=== PATIENT | male | born 1945 | race Caucasian/White ===

== ENCOUNTER → 2020-03-21 09:37 | Outpatient (BNVA) | payer MEDICARE, SELFPAY | PROVIDERS: PCP Nurse Practitioner Family; Visit Provider Internal Medicine Cardiovascular Disease | DX: I51.3 Intracardiac thrombosis, not elsewhere classified (principal); Z51.81 Encounter for therapeutic drug level monitoring; Z79.01 Long term (current) use of anticoagulants | CPT/HCPCS: 85610 ==

== ENCOUNTER → 2020-05-03 09:19 | Outpatient (BNVA) | payer MEDICARE, OTHER, SELFPAY | PROVIDERS: PCP Nurse Practitioner Family; Referring Provider Nurse Practitioner Family; Visit Provider Internal Medicine Cardiovascular Disease | DX: I25.10 Atherosclerotic heart disease of native coronary artery without angina pectoris (principal); I25.5 Ischemic cardiomyopathy; I51.3 Intracardiac thrombosis, not elsewhere classified; Z79.01 Long term (current) use of anticoagulants; Z79.899 Other long term (current) drug therapy | CPT/HCPCS: 93005; 99212 ==

== ENCOUNTER → 2020-05-22 09:47 | Outpatient (BNVA) | payer MEDICARE, OTHER, SELFPAY | PROVIDERS: PCP Nurse Practitioner Family; Visit Provider Internal Medicine | DX: Z01.811 Encounter for preprocedural respiratory examination (principal); J44.9 Chronic obstructive pulmonary disease, unspecified | CPT/HCPCS: 85610; 99202; 99211 ==

== ENCOUNTER 2020-06-05 12:42 | Inpatient (IN) | payer MEDICARE, OTHER, SELFPAY ==
[2020-05-22 10:46] VITALS: BP 173/80; PULSE 50; RESP 16; O2SAT 99; BMI 24.9
--- NOTE | 2020-05-25 14:28 | HO.ANESPROP2 ---
Documented by User: Isabelle Rangel 06/02/20 11:36 HPI - Anesthesia Eval Consult details Narrative: 74yo M for ICD Insertion Seen by Dr Kerns in PAT Pulm cleared at mod risk, optimized. No intraop steroids required. [facility] Past Medical History Medical History CAD (coronary artery disease) Carotid artery disease COPD (chronic obstructive pulmonary disease) HTN (hypertension) Hyperlipidemia Ischemic cardiomyopathy LV (left ventricular) mural thrombus Old CT (myocardial infarction) PVD (peripheral vascular disease) Family History Family History Father No problems noted. Mother Diabetes Surgical History Surgical History Hx of colonoscopy Hx of hemorrhoidectomy Hx of kyphoplasty Hx of vascular surgery Social History Social History Are you a primary regular senior care provider to a significant other at home: No Do you presently have visiting nurse or other home services: No Alcohol intake: current Alcohol intake frequency: 3 or more drinks per day Alcohol type: beer Smoking Status: Current every day smoker Tobacco Type: Cigarette Packs Per Day: 1 Cigarettes Per Day: 20.0 Years Smoked: 52 Smoked in Last 30 Days: Yes Patient Interested in Nicotine Replacement: No Patient Given Instructions on How to Stop Smoking: Yes Date Education Initiated: 05/22/20 Second Hand Smoke Exposure: No Use of substances other than those prescribed or required for medical reasons: No Have you been hit, kicked, punched, or otherwise hurt by someone within the past year? If so, by whom?: No Spiritual Healthcare Practices: none Holiness Healthcare Practices: none Cultural Healthcare Practices: none Advance Directives: No Advance Directives Information Provided: No Advance Directives on File: No Recently lost weight without trying: No Meds Allergies Allergy/AdvReac Type Severity Reaction Status Date / Time No Known Allergies Allergy Verified 05/22/20 11:08 Home Medications Medication Instructions Recorded Confirmed Type albuterol sulfate 90 mcg/actuation 2 puff PO Q6H PRN 05/03/20 05/22/20 History aerosol inhaler atorvastatin 80 mg tablet 80 mg PO DAILY 05/03/20 05/22/20 History calcium carbonate 600 mg calcium 600 mg PO BID 05/03/20 05/22/20 History (1,500 mg) tablet ergocalciferol (vitamin D2) 50 mcg 100 mcg PO cap 05/03/20 05/03/20 History (2,000 unit) capsule metoprolol succinate 50 mg 50 mg PO DAILY 05/03/20 05/22/20 History tablet,extended release 24 hr tiotropium bromide 2.5 1 inh INHALATION BID 05/03/20 05/22/20 History mcg/actuation mist for inhalation Exam Exam Date and Time: May 25, 2020 1428 Height,Weight and Vital Signs: Height 5 ft 4 in Weight 65.771 kg Last Vital Signs Pulse 50 05/22/20 10:46 Resp 16 05/22/20 10:46 BP 173/80 H 05/22/20 10:46 Pulse Ox 99 05/22/20 10:46 Assessment and Plan Assessment Anesthesia Assessment: Chart Reviewed Documented by User: Rikki Landry MD 06/05/20 12:33 [facility] Past Medical History Medical History CAD (coronary artery disease) Carotid artery disease COPD (chronic obstructive pulmonary disease) HTN (hypertension) Hyperlipidemia Ischemic cardiomyopathy LV (left ventricular) mural thrombus Old CT (myocardial infarction) PVD (peripheral vascular disease) Family History Family History Father No problems noted. Mother Diabetes Surgical History Surgical History Hx of colonoscopy Hx of hemorrhoidectomy Hx of kyphoplasty Hx of vascular surgery Social History Social History Are you a primary regular senior care provider to a significant other at home: No Do you presently have visiting nurse or other home services: No Alcohol intake: current Alcohol intake frequency: 3 or more drinks per day Alcohol type: beer Smoking Status: Current every day smoker Tobacco Type: Cigarette Packs Per Day: 1 Cigarettes Per Day: 20.0 Years Smoked: 52 Smoked in Last 30 Days: Yes Patient Interested in Nicotine Replacement: No Patient Given Instructions on How to Stop Smoking: Yes Date Education Initiated: 05/22/20 Second Hand Smoke Exposure: No Use of substances other than those prescribed or required for medical reasons: No Have you been hit, kicked, punched, or otherwise hurt by someone within the past year? If so, by whom?: No Spiritual Healthcare Practices: none Holiness Healthcare Practices: none Cultural Healthcare Practices: none Advance Directives: No Advance Directives Information Provided: No Advance Directives on File: No Recently lost weight without trying: No Meds Allergies Allergy/AdvReac Type Severity Reaction Status Date / Time No Known Allergies Allergy Verified 05/22/20 11:08 Home Medications Medication Instructions Recorded Confirmed Type albuterol sulfate 90 mcg/actuation 2 puff PO Q6H PRN 05/03/20 05/22/20 History aerosol inhaler atorvastatin 80 mg tablet 80 mg PO DAILY 05/03/20 05/22/20 History calcium carbonate 600 mg calcium 600 mg PO BID 05/03/20 05/22/20 History (1,500 mg) tablet ergocalciferol (vitamin D2) 50 mcg 100 mcg PO cap 05/03/20 05/03/20 History (2,000 unit) capsule metoprolol succinate 50 mg 50 mg PO DAILY 05/03/20 05/22/20 History tablet,extended release 24 hr tiotropium bromide 2.5 1 inh INHALATION BID 05/03/20 05/22/20 History mcg/actuation mist for inhalation Exam Airway Mallampati Class: II TM Dist: >3cm Neck ROM: Full Loose/Missing/Broken Teeth: Yes (Poor dental health, multiple missing and broken teeth) Assessment and Plan Assessment Anesthesia Assessment: Anesthesia Plan Discussed Final Anesthetic Review NPO: Yes ASA Class: IV Final Preanesthetic Review: No Changes in Pt Med Stat, Meds/Allgs Chart Reviewed, Consent Obtained/Reviewed and Anes Risks/Benef Reviewed Patient Risk: High Procedure Risk: Intermediate Anesthetic Plan Anesthetic Plan: MAC: Disposition: Standard PACU
[2020-06-05] VITALS (14 sets, daily range): BP systolic 96–155; BP diastolic 51–79; PULSE 58–92; RESP 12–19; TEMP 36–37.2; O2SAT 96–100
--- NOTE | 2020-06-05 | XR_ITS ---
EXAMINATION: XR CHEST CLINICAL INFORMATION: Rule out pneumothorax status post ICD COMPARISON: December 21, 2019 and chest x-ray of June 09, 2017 TECHNIQUE: AP portable view of the chest was obtained. FINDINGS: There are significant changes of emphysema present with diminished vascularity within the upper lobes bilaterally. No confluent parenchymal disease is appreciated. Heart normal size. No evidence of pulmonary edema. Patient status post kyphoplasty midthoracic spine. ICD in place from a left subclavian vein approach. No pneumothorax identified. No significant pleural effusion. There appears to be chronic right base pleural-parenchymal disease. Or left rib fracture evident. XR/XR chest 1V IMPRESSION: COPD without pneumothorax.
[2020-06-05] MEDS: Lactated Ringers 1,000 ML 20 ML IVCONT (12:11)
[2020-06-05 12:12] LABS: Hematocrit 44.1 % (42-52); Hemoglobin 14.8 g/dl (14.0-18.0); Mean Corpuscular HGB Conc 33.6 g/dl (31.0-36.0); Mean Corpuscular Hemoglobin 30.9 pg (27.0-33.0); Mean Corpuscular Volume 92.1 fL (80-98); Mean Platelet Volume 8.7 fL (9.4-12.4); Platelet Count 182 X10*3/uL (160-400); Red Blood Count 4.79 X10*6/uL (4.60-5.80); Red Cell Distribution Width 13.9 % (11.0-16.0); White Blood Count 7.6 X10*3/uL (4.8-10.8)
[2020-06-05 12:18] LABS: INTERNATIONAL NORM RATIO 1.1 (0.9-1.1); Prothrombin Time 13.4 SEC (10.8-13.0)
[2020-06-05 12:37] LABS: Blood Urea Nitrogen 9 mg/dL (9-16); Calcium 9.1 mg/dL (8.4-10.2); Creatinine Clr Calc Pharmacy 71.5; Estimated Glomerular Filt Rate > 60; Glucose Fasting 88 mg/dL (60-99)
[2020-06-05 12:44] LABS: COVID-19 Test Negative (Negative)
[2020-06-05 12:51] LABS: Anion Gap 14 (12-20); Carbon Dioxide 26 mmol/L (22-29); Chloride 90 mmol/L (96-108); Potassium 4.9 mmol/l (3.3-5.1); Sodium 125 mmol/L (135-145)
--- NOTE | 2020-06-05 13:06 | FL_ITS ---
EXAMINATION: CHEST X-RAY CLINICAL INFORMATION: Post ICD COMPARISON: Previous chest x-ray from earlier the same day TECHNIQUE: PA and lateral chest FINDINGS: The cardiac and mediastinal contours are stable. There is a left subclavian ICD with tip projecting over the ventricular apex. Hilar and mediastinal contours are unremarkable. There is subsegmental atelectasis at the right lung base. There is no pleural effusion or pneumothorax. There are T7 and T8 vertebral body compression fractures and post vertebroplasty change at T8 that appears unchanged. FL/FL guidance in OR IMPRESSION: Satisfactory position of left subclavian ICD. No pneumothorax. EXAMINATION: RF fluoroscopy guidance in OR CLINICAL INFORMATION: Left ICD displacement COMPARISON: Previous chest x-ray from earlier the same day TECHNIQUE: Fluoroscopic guidance was provided for ICD placement. Fluoroscopy time 11.1 minutes. Total dose 50 mgy. DAP 13.4 baca per centimeter squared. 1 saved fluoroscopic image. FINDINGS: There is a ICD with tip projecting over the ventricular apex. IMPRESSION: Fluoroscopic guidance for ICD placement.
--- NOTE | 2020-06-05 15:18 | P.BOP_ITS ---
Brief Operative Note Date of Service: 06/05/20 Pre-op diagnosis: CAD and ischemic cardiomyopathy with congestive heart failure with EF 30-35% and class II HF Procedure: Single chamber ICD implantation with axillary access. Plan CXR portable today, PA/lateral tomorrow Ancef x 2 doses Do not use left arm for today Ok to restart coumadin, no heparin subq or lovenox DC Instructions below can be placed below can be used on discharge Ronnie Rick Electrophysiology Attending [place] [facility] Dr. Ronnie Rick Pacemaker/ICD Instructions Site Care: Leave dressing on for 5 days. Do not shower or get the area wet for 5 days. Once you remove the dressing, there will be steri-strips in place. Do not peel off, they will fall off. Hand washing is a must when caring for your incision to prevent infections. Avoid touching your incision or using lotions, creams, or ointments until it is healed (2-4 weeks). Activity: If you received a new battery only, do not lift, push, pull, or carry objects that weigh more than 10 pounds until incision is healed (2 weeks) and avoid clothing that rubs against your incision If you received new leads: Limit the movement of your arm on the same side as the pacemaker but do not stop moving it. Avoid stretching that arm over your head or shoulder-level or lift or carry anything heavier than 5 pounds with the left arm for 6 weeks Avoid golfing, swimming, tennis, bowling, shoveling snow or mowing the lawn for [address] for 2 weeks Follow-up instructions: If you do not already have a scheduled follow-up appointment, please call [phone] for the [place] office or [phone] for the [place] office Please keep the identification card for the device with you, it will be useful when you go through security during flights. Please plug in your home monitor and leave it at your bedside. Call device company if you need assistance plugging in the monitor. Please tell all your healthcare providers you have a pacemaker, especially before procedures or before a MRI. Call your doctor if you have any redness, swelling, pus from incision site, fever of 101 degrees. If you have any bleeding from the incision site, lie down and put pressure on the incision site for 30 minutes. If this does not resolve, please get transportation to the closest hospital but do not drive yourself. Implants: [employer]tronic single chamber ICD Surgeon: Ronnie Rick MD Anesthesia: MAC Estimated blood loss (mL): 30 Pathology: none sent Condition: stable Disposition: floor
--- NOTE | 2020-06-05 16:02 | P.OP_ITS ---
Operative Note Operative Note Date of Service: 06/05/20 Narrative: Procedure: Single chamber ICD Indication: ischemic cardiomyopathy with systolic heart failure and EF 30-35%, class II HF Procedure The risks, benefits, complications, alternatives and expected outcomes were discussed with the patient. Patient was prepped and draped in the usual sterile fashion. After the antibiotic was infused, lidocaine was infiltrated medial to the deltopectoral groove. An incision was made. The incision was extended to the prepectoral fascia using blunt dissection. The lead was positioned in the RV. Appropriate sensing and thresholds were obtained. No diaphragmatic pacing occurred at high outputs. The lead was sutured to the muscle using 3 ethibond ties. Lead measurements were rechecked. A left prepectoral pocket was fashioned. The lead was attached to the generator. The system was placed in the pocket. The ICD was checked under fluoroscopy with adrquate slack noted noted. The pin of the lead was beyond the set screws. Hemostasis was verified. The pocket was closed with 3 layers. Steristrips and tegaderm were applied [employer] Device: ICD Visia AF MRI VR [id number] serial [id number] RV lead: 6935 Sprint Quattro serial [id number] Pacing impedance 494 ohms HV impedance 76 ohms Threshold 0.5 V at 0.4 ms R waves 14.6 Programmed VVI 40 BPM VF therapy >200 BPM ATP during charging, [id number] Ronnie Rick Electrophysiology/Cardiology Attending
[2020-06-05] MEDS: Albuterol Sulfate 90 MCG 8 GM INHALER 2 PUFF INHALE (18:45)
--- NOTE | 2020-06-05 18:57 | PM.EVENT ---
Event Note Date of Service: 06/05/20 Event Note: Patient was admitted for observation post AICD. Patient seen seen and examined has increasing area of hematoma in the left upper pectoral area, Patient denies any chest pain or breathing problem at present Denies any weakness numbness. Physical exam: Cvs: rrr, [id number] , no murmur res: clear to auscultation ,no rhonchii or wheezing abd: no rebound or guarding ,nt, bs present. ext pulses present , no cyanosis neuro: axo3 , nonfocal. skin: left upper pectoral area heamtoma Assessment and plan coordinated in H&P Patient is status post pacemaker Discussed with Cardiology due to increase hematoma hold off on warfarin for today Pressure dressing and tight bandage H&H and type and cross moniter vitals If any new symptoms chest pain or shortness of breath please call Dr. garcia : [phone]
[2020-06-05 19:34] LABS: Hematocrit 37.7 % (42-52); Hemoglobin 12.8 g/dl (14.0-18.0)
[2020-06-05 22:06] LABS: Hematocrit 35.9 % (42-52); Hemoglobin 12.2 g/dl (14.0-18.0)
[2020-06-05] MEDS: 0.9 % Sodium Chloride Flush 3 ML SYRINGE IVFLUSH (23:52)
[2020-06-05] MEDS: ceFAZolin Sodium/Dextrose,Iso 2 GM/50 ML PIGGYBACK IV (23:52)
[2020-06-06] VITALS (7 sets, daily range): BP systolic 117–140; BP diastolic 58–74; PULSE 67–86; RESP 18; TEMP 36.2–37.3; O2SAT 93–100
[2020-06-06 00:23] LABS: Osmolality Urine 349 mosm/kg (373-1093)
--- NOTE | 2020-06-06 00:45 | PC.NURSE ---
Pt arrived to unit from PACU ~1700. Pt s/p AICD pacemaker placement. Upon arrival, pt assessed, pt A/O x4, denies SOB, CP, palpitations, and dizziness. Pt with dry nonproductive cough, Inhaler given by RT with good effect. Pt SR 60's, no pacemakers spikes noted, sBP 130s, RR 18, O2 100 % 1.5L NC. Left chest incision intact with scant staining/mild swelling. Ice pack placed. Left arm kept in sling. + CMS bilaterally. Pt educated on the importance of keeping left arm in sling. ~18:00; Increased swelling/bruising noted to left pectoral region. Geetha Hutson NP notified. Dr. David ANDINO to the bedside to assess the patient. Warfarin held due to hematoma. Dr. Cooper notified/update given. to the bedside to place pressure dressing. ~19:10 Pressure placed by division leader x10 mins, followed by a pressure dressing/tight bandage. ~19:20-20:20 Sand bag placed x1 hr. Pt tolerated procedure well. H/H 12.8/37.7. BP 100's. Will continue to monitor.
--- NOTE | 2020-06-06 06:00 | XR_ITS ---
EXAMINATION: CHEST X-RAY CLINICAL INFORMATION: Post ICD COMPARISON: Previous chest x-ray from earlier the same day TECHNIQUE: PA and lateral chest FINDINGS: The cardiac and mediastinal contours are stable. There is a left subclavian ICD with tip projecting over the ventricular apex. Hilar and mediastinal contours are unremarkable. There is subsegmental atelectasis at the right lung base. There is no pleural effusion or pneumothorax. There are T7 and T8 vertebral body compression fractures and post vertebroplasty change at T8 that appears unchanged. XR/XR chest 2V IMPRESSION: Satisfactory position of left subclavian ICD. No pneumothorax. EXAMINATION: RF fluoroscopy guidance in OR CLINICAL INFORMATION: Left ICD displacement COMPARISON: Previous chest x-ray from earlier the same day TECHNIQUE: Fluoroscopic guidance was provided for ICD placement. Fluoroscopy time 11.1 minutes. Total dose 50 mgy. DAP 13.4 baca per centimeter squared. 1 saved fluoroscopic image. FINDINGS: There is a ICD with tip projecting over the ventricular apex. IMPRESSION: Fluoroscopic guidance for ICD placement.
[2020-06-06] MEDS: ceFAZolin Sodium/Dextrose,Iso 2 GM/50 ML PIGGYBACK IV ×3 (06:39→20:44)
[2020-06-06] MEDS: Acetaminophen 325 MG TABLET 650 MG PO (06:44)
[2020-06-06 07:12] LABS: Hematocrit 35.8 % (42-52); Mean Corpuscular HGB Conc 33.5 g/dl (31.0-36.0); Mean Corpuscular Hemoglobin 30.7 pg (27.0-33.0); Mean Corpuscular Volume 91.6 fL (80-98); Mean Platelet Volume 9.2 fL (9.4-12.4); Platelet Count 144 X10*3/uL (160-400); Red Blood Count 3.91 X10*6/uL (4.60-5.80); Red Cell Distribution Width 13.7 % (11.0-16.0); White Blood Count 5.6 X10*3/uL (4.8-10.8)
[2020-06-06 07:27] LABS: INTERNATIONAL NORM RATIO 1.1 (0.9-1.1); Prothrombin Time 13.2 SEC (10.8-13.0)
--- NOTE | 2020-06-06 07:54 | P.PNIM_ITS ---
Subjective Subjective Date of Service: 06/08/20 Interval History: Patient developed possible hematoma after AICD placement yesterday. Also has hyponatremia Review of Systems Patient still has lot of swelling and hematoma mildly increased, otherwise patient denies any chest pain or abdominal pain or fever or chills or new symptoms Physical Exam Vital Signs: Vital Signs: Last Vital Signs Temp 98 F 06/06/20 03:32 Pulse 67 06/06/20 03:32 Resp 18 06/06/20 03:32 BP 140/67 H 06/06/20 03:32 Pulse Ox 100 06/06/20 03:32 Body Mass Index 24.9 Physical exam: Constitutional: Not in distress Cvs: rrr, [id number] , no murmur res: clear to auscultation ,no rhonchii or wheezing abd: no rebound or guarding ,nt, bs present. ext pulses present , no cyanosis skin: left upper pectoral area has swelling , status post compression bandage neuro: axo3 , nonfocal. Objective Data Current Medications Generic Name Dose Route Start Last Admin Trade Name Freq PRN Reason Stop Dose Admin Acetaminophen 650 mg 06/05/20 16:53 06/06/20 06:44 Acetaminophen 325 Mg Tablet PO 650 mg Q6H PRN Administration Pain, Mild (Pain Scale 1-3) Albuterol Sulfate 2 puff 06/05/20 15:31 06/05/20 18:45 Albuterol Sulfate 90 Mcg 8 Gm Inhaler INHALE 2 puff Q6H PRN Administration Shortness Of Breath Or Wheezing Atorvastatin Calcium 80 mg 06/06/20 09:00 Atorvastatin Calcium 80 Mg Tablet PO DAILY CHERELLE Calcium Carbonate 500 mg 06/05/20 21:00 06/05/20 23:51 Calcium Carbonate 500 Mg Tablet PO 500 mg BID CHERELLE Administration Lactated Ringer's 1,000 mls @ 20 mls/hr 06/05/20 11:45 06/05/20 12:11 Lr IVCONT 20 mls/hr .Q24H CHERELLE Administration Cefazolin Sodium/Dextrose 2 gm in 50 mls @ 100 mls/hr 06/06/20 08:00 Ancef IV Q8H CHERELLE Metoprolol Succinate 50 mg 06/06/20 09:00 Metoprolol Succinate Er 50 Mg Tab.Er.24h PO DAILY [facility] Protocol Ondansetron HCl 4 mg 06/05/20 16:53 Ondansetron Hcl 4 Mg/2 Ml Vial IVPUSH Q8H PRN Nausea and Vomiting Sodium Chloride 3 ml 06/06/20 00:00 06/05/20 23:52 0.9 % Sodium Chloride Flush 3 Ml Syringe IVFLUSH 3 ml QSHIFT CHERELLE Administration Tiotropium [place] 1 puff 06/06/20 08:00 06/06/20 07:49 Tiotropium [place] 18 Mcg Cap.W.Dev INHALE 1 puff RDAILY CHERELLE Administration Labs CBC & Chem 7: 06/07/20 07:33 06/07/20 07:33 Assessment and Plan (1) Ischemic cardiomyopathy: Problem details: EF 30-35% Status: Acute Assessment and Plan: COPD (chronic obstructive pulmonary disease): Continue tiotropium, albuterol. HTN (hypertension): Continue metoprolol: Hyperlipidemia: Continue at atorvastatin Ischemic cardiomyopathy/CAD (coronary artery disease)/LV (left ventricular) mural thrombus: Status post AICD yesterday, warfarin on hold due to hematoma increasing Continue compression bandage, and continue to monitor H&H so far stable in 12 issue range Hyponatremia osman: Seems euvolemic: Will check TSH, serum and urine osmolality, put the patient on fluid restriction for now. Also check vitamin-D level in the past it was low. Above was discussed with patient's surgeon
[2020-06-06 08:59] LABS: Sodium 126 mmol/L (135-145)
[2020-06-06] MEDS: Atorvastatin Calcium 80 MG TABLET PO (09:30)
[2020-06-06] MEDS: 0.9 % Sodium Chloride Flush 3 ML SYRINGE IVFLUSH ×3 (09:30→20:45)
[2020-06-06] MEDS: Metoprolol Succinate ER 50 MG TAB.ER.24H PO (09:30)
--- NOTE | 2020-06-06 09:39 | MHC.CM.PN ---
Male 74 S/P ICD placement. He lives with his son. He uses a cane prn. He sponge bathes for safety. He does not have any paid help in place. He is independent with equipment/accommodations. Plan was to dc today. Change in DP due to a Blood clot. He will be monitored today. The patient will be discharged tomorrow. DP home no services family will provide transportion.
--- NOTE | 2020-06-06 12:17 | HP_ITS ---
DATE OF SERVICE: 06/05/2020 CHIEF COMPLAINT: ICD placement. HISTORY OF PRESENT ILLNESS: A 74-year-old man status post ICD placement secondary to ischemic cardiomyopathy with systolic heart failure, EF of 30% to 35%. He had a single-chamber ICD implantation placed. His vital signs are stable. He is quite a heavy smoker, smoking at least a pack to half a pack of cigarettes a day and drinking 6 beers a day. He denies any history of withdrawal. Labs from today show a low sodium of 125 and other labs within acceptable limits. He did have a Coronavirus PCR, which was negative. He reported that he had stopped his warfarin yesterday, he has a history of cardiac thrombus. He will be admitted to [facility] [place] for observation. PAST MEDICAL HISTORY: Reviewed. 1. COPD. 2. Emphysema. 3. History of compression fracture. 4. Ischemic cardiomyopathy with EF less than 30%. 5. Left ventricular mural thrombus. 6. Hyperlipidemia. 7. Hypertension. 8. Coronary artery disease. 9. Peripheral vascular disease. PAST SURGICAL HISTORY: 1. Bilateral fem-fem bypass. 2. Hemorrhoidectomy. SOCIAL HISTORY: Lives with his . Smokes a pack and half a cigarettes a day. Drinks at least 6 beers a day. Denies any illicit drug use. ALLERGIES: NO KNOWN ALLERGIES. MEDICATIONS: 1. Albuterol sulfate 2 puffs p.o. q.6 hours p.r.n. shortness of breath. 2. Atorvastatin 80 mg p.o. daily. 3. Calcium carbonate 600 mg p.o. b.i.d. 4. Ergocalciferol 2000 units. 5. Lisinopril 10 mg p.o. daily. 6. Metoprolol succinate 50 mg p.o. daily. 7. Ipratropium bromide. 8. Warfarin 4 mg p.o. daily. REVIEW OF SYSTEMS: CONSTITUTIONAL: Denies any recent fever, chills, or decrease in appetite. RESPIRATORY: Denies any shortness of breath, cough, or sputum production. CARDIOVASCULAR: Denies any chest pain, orthopnea, PND, or edema. GASTROINTESTINAL: Denies dysphagia, abdominal pain, nausea, vomiting, or diarrhea. GENITOURINARY: Denies any dysuria, frequency, hematuria. MUSCULOSKELETAL: Denies joint pain, swelling. NEUROPSYCH: Denies any weakness or seizures. All other systems are reviewed and are negative. PHYSICAL EXAMINATION: CONSTITUTIONAL: Resting in bed. Appearing in no acute distress. VITAL SIGNS: 108/69, 61, 19, 96.8, 99% on 2 L. SKIN: Left upper chest with ICD. Incision looks clean. He does have some swelling to that area pretty significantly. HEART: Regular rate and rhythm. Clear S1, S2. No murmurs, rubs, gallops. ABDOMEN: Positive bowel sounds. Soft, nontender. No hepatomegaly or splenomegaly noted. NEURO: The patient is alert and oriented x3. Cranial nerves II through XII grossly intact without focal deficits. LABORATORY DATA: WBC 7.6, hemoglobin 14.8, hematocrit 44.1, and platelets 182. Sodium is 125, potassium is 4.9, chloride is 90, bicarb is 26, BUN is 9, and creatinine is 0.77. ASSESSMENT/PLAN: A 74-year-old man, who is status post implantable cardioverter-defibrillator implantation due to ischemic cardiomyopathy. 1. Implantable cardioverter-defibrillator placement. Monitor wound site. Does have pretty significant swelling. May use ice and also monitor for an area of hematoma as well as the patient is on warfarin for cardiac thrombus. The patient should have his sling on without lifting up his arm. 2. History of cardiac thrombus. May continue warfarin as per Cardiology. Also continue beta-raul. 3. Hypertension. Soft blood pressures. Hold lisinopril for now. 4. Chronic obstructive pulmonary disease. Continue albuterol as needed. 5. Coronary artery disease. Continue statin and beta-raul. 6. Hyponatremia may be related to alcohol use. We will send urine studies and follow chemistry closely. Seems chronic though this is the lowest he has been, however. 7. Smoker. Declined nicotine patch. Discussed smoking cessation. 8. Alcohol use. No signs of withdrawal at this time. We will place on CIWA scale. 9. Deep vein thrombosis prophylaxis with warfarin. 10. Case discussed with Dr. Hernandez. 11. Full code. KOLE Davidson MD JR/ANDREINA / [id number]
--- NOTE | 2020-06-06 13:45 | W.PM.IDCN ---
History of Present Illness Data of Consult Service Date: 06/06/20 Requesting physician: Ronnie Rick Primary Care Provider: JULIET Lawrence HPI Reason for consult: hematoma AICD He presents to hospital [facility]. He has swelling and a pressure dressing site over area. He has no fever or chills or bacteremia Review of Systems Review of Systems: Yes all other systems are reviewed and are negative PMFSH Past Medical History Medical History CAD (coronary artery disease) Carotid artery disease COPD (chronic obstructive pulmonary disease) HTN (hypertension) Hyperlipidemia Ischemic cardiomyopathy LV (left ventricular) mural thrombus Old MS (myocardial infarction) PVD (peripheral vascular disease) Family History Family History Father No problems noted. Mother Diabetes Surgical History Surgical History Hx of colonoscopy Hx of hemorrhoidectomy Hx of kyphoplasty Hx of vascular surgery Social History Social History Household Members: Children Housing: House Are you a primary managed care coordinator to a significant other at home: No Do you presently have visiting nurse or other home services: No Alcohol intake: current Alcohol intake frequency: 3 or more drinks per day Alcohol type: beer Smoking Status: Current every day smoker Tobacco Type: Cigarette Packs Per Day: 1 Cigarettes Per Day: 20.0 Years Smoked: 52 Smoked in Last 30 Days: Yes Smoking Quit Date: NO Patient Interested in Nicotine Replacement: No (refused) Patient Given Instructions on How to Stop Smoking: No (refused) Date Education Initiated: 05/22/20 Second Hand Smoke Exposure: No Use of substances other than those prescribed or required for medical reasons: No Currently Displaying Signs/Symptoms of Drug Intoxication Withdrawal: No Have you been hit, kicked, punched, or otherwise hurt by someone within the past year? If so, by whom?: No Do you feel safe in your current relationship?: No Is there a partner from a previous relationship who is making you feel unsafe now?: No Are you made to feel afraid or neglected: No Spiritual Healthcare Practices: none. Sabianism Healthcare Practices: none. Cultural Healthcare Practices: none. Advance Directives: No Advance Directives Information Provided: No Advance Directives on File: No Do you have thoughts of harming others: None Do you have a plan to hurt others: No Plan Recently lost weight without trying: No service: Yes Current occupational status: retired Meds Allergies Allergy/AdvReac Type Severity Reaction Status Date / Time No Known Allergies Allergy Verified 05/22/20 11:08 Home Medications Medication Instructions Recorded Confirmed Type albuterol sulfate 90 mcg/actuation 2 puff PO Q6H PRN 05/03/20 05/22/20 History aerosol inhaler atorvastatin 80 mg tablet 80 mg PO DAILY 05/03/20 05/22/20 History calcium carbonate 600 mg calcium 600 mg PO BID 05/03/20 05/22/20 History (1,500 mg) tablet ergocalciferol (vitamin D2) 50 mcg 100 mcg PO cap 05/03/20 05/03/20 History (2,000 unit) capsule metoprolol succinate 50 mg 50 mg PO DAILY 05/03/20 05/22/20 History tablet,extended release 24 hr tiotropium bromide 2.5 1 inh INHALATION BID 05/03/20 05/22/20 History mcg/actuation mist for inhalation Physical Exam Vital Signs: Vital Signs: Last Vital Signs Temp 97.2 F 06/06/20 08:00 Pulse 77 06/06/20 09:30 Resp 18 06/06/20 08:00 BP 125/63 06/06/20 09:30 Pulse Ox 98 06/06/20 08:00 Body Mass Index 24.9 Const: General: cooperative HENMT: Head: Yes normal to inspection Mouth: Normal oral and palatal mucosa present Eyes: General: appearance normal, both eyes and all related structures Resp: Effort & Inspection: normal respiratory effort Cardio: Rate: regular rate Rhythm: regular rhythm GI: Inspection: Yes normal to inspection Back/Spine/Pelvis: Other: swelling pressure dressing AICD site Assessment and Plan (1) Current use of anticoagulant therapy: Problem details: There is swelling at AICD site There is hematoma There are no signs of sepsis or bacteremia at this time Strep and staph are possibilities if this is the case Status: Acute May continue Kefzol and wait for cultures. Results Labs CBC & Chem 7: 06/06/20 05:44 06/06/20 08:06 Labs: Short CBC 06/05/20 06/05/20 06/06/20 Range/Units 17:18 21:57 05:44 WBC 5.6 (4.8-10.8) X10*3/uL Hgb 12.8 L 12.2 L 12.0 L (14.0-18.0) g/dl Hct 37.7 L 35.9 L 35.8 L (42-52) % Plt Count 144 L (160-400) X10*3/uL [facility] 06/06/20 08:06 Sodium 126 L
--- NOTE | 2020-06-06 17:48 | P.PNCA_ITS ---
Subjective Subjective Date of Service: 06/06/20 Physical Exam Vital Signs: Last Vital Signs Temp 98.1 F 06/06/20 15:37 Pulse 79 06/06/20 15:37 Resp 18 06/06/20 15:37 BP 126/58 L 06/06/20 15:37 Pulse Ox 94 06/06/20 15:37 Body Mass Index 24.9 Const General: Physically active HENMT Mouth: Normal oral and palatal mucosa present Resp Effort & Inspection: normal respiratory effort Auscultation: clear to auscultation bilaterally Cardio Jugular venous distension: no JVD Rate: regular rate Extrem General: Yes normal to inspection and No edema Results Labs and Meds Result diagrams: 06/06/20 05:44 06/06/20 08:06 Lab results: Laboratory Results - last 24 hr 06/05/20 06/05/20 06/05/20 17:18 19:17 21:57 WBC RBC Hgb 12.8 L 12.2 L Hct 37.7 L 35.9 L MCV MCH MCHC RDW Plt Count MPV Absolute Nucleated RBC Nucleated RBC % (auto) PT INR Sodium Urine Osmolality Ur Random Sodium Ur Random Potassium Blood Type A Positive Antibody Screen NEGATIVE 06/05/20 06/05/20 06/06/20 23:58 23:58 05:44 WBC 5.6 RBC 3.91 L Hgb 12.0 L Hct 35.8 L MCV 91.6 MCH 30.7 MCHC 33.5 RDW 13.7 Plt Count 144 L MPV 9.2 L Absolute Nucleated RBC 0.000 Nucleated RBC % (auto) 0.0 PT INR Sodium Urine Osmolality 349 L Ur Random Sodium 46.0 Ur Random Potassium 38.0 Blood Type Antibody Screen 06/06/20 06/06/20 05:44 08:06 WBC RBC Hgb Hct MCV MCH MCHC RDW Plt Count MPV Absolute Nucleated RBC Nucleated RBC % (auto) PT 13.2 H INR 1.1 Sodium 126 L Urine Osmolality Ur Random Sodium Ur Random Potassium Blood Type Antibody Screen Progress Note: A&P Assessment and plan (1) Ischemic cardiomyopathy: Problem details: EF 30-35% Status: Acute Assessment and Plan: s/p ICD. Patient has hematoma that we have watched today with pressure dressing and has been stable. Will continue IV ancef 2 q8 hours while patient is an inpatient and discharge on doxy 100 mg BID for 5 days. Will continue pressure dressing overnight and discharge in AM if stable with plans to hold coumadin for 2 weeks RV threshold 0.5 at 0.4 ms today, R waves 15.5, all settings appropriate Fall Risk Details Current Medications: Current Medications Generic Name Dose Route Start Last Admin Trade Name Freq PRN Reason Stop Dose Admin Acetaminophen 650 mg 06/05/20 16:53 06/06/20 06:44 Acetaminophen 325 Mg Tablet PO 650 mg Q6H PRN Administration Pain, Mild (Pain Scale 1-3) Albuterol Sulfate 2 puff 06/05/20 15:31 06/05/20 18:45 Albuterol Sulfate 90 Mcg 8 Gm Inhaler INHALE 2 puff Q6H PRN Administration Shortness Of Breath Or Wheezing Atorvastatin Calcium 80 mg 06/06/20 09:00 06/06/20 09:30 Atorvastatin Calcium 80 Mg Tablet PO 80 mg DAILY CHERELLE Administration Calcium Carbonate 500 mg 06/05/20 21:00 06/06/20 09:30 Calcium Carbonate 500 Mg Tablet PO 500 mg BID CHERELLE Administration Lactated Ringer's 1,000 mls @ 20 mls/hr 06/05/20 11:45 06/06/20 13:02 Lr IVCONT Not Given .Q24H CHERELLE Cefazolin Sodium/Dextrose 2 gm in 50 mls @ 100 mls/hr 06/06/20 14:00 06/06/20 15:20 Ancef IV Infused Q8H CHERELLE Infusion Metoprolol Succinate 50 mg 06/06/20 09:00 06/06/20 09:30 Metoprolol Succinate Er 50 Mg Tab.Er.24h PO 50 mg DAILY CHERELLE Administration Protocol Ondansetron HCl 4 mg 06/05/20 16:53 Ondansetron Hcl 4 Mg/2 Ml Vial IVPUSH Q8H PRN Nausea and Vomiting Sodium Chloride 3 ml 06/06/20 00:00 06/06/20 15:52 0.9 % Sodium Chloride Flush 3 Ml Syringe IVFLUSH 3 ml QSHIFT CHERELLE Administration Tiotropium [place] 1 puff 06/06/20 08:00 06/06/20 07:49 Tiotropium [place] 18 Mcg Cap.W.Dev INHALE 1 puff RDAILY CHERELLE Administration Time Spent With Patient Time: Total time spent is greater than 50% in coordination of care (as documented) at patient's floor/unit and/or counseling patient: Time with patient: 15 - 24 minutes
[2020-06-06 18:13] LABS: Osmolality, Serum 267 mosm/kg (281-305)
[2020-06-06 18:14] LABS: Alanine Aminotransferase 13 U/L (0-40); Albumin Level 3.8 g/dL (3.5-5.0); Alkaline Phosphatase 90 U/L (39-117); Aspartate Amino Transferase 22 U/L (5-37); Bilirubin Direct 0.5 mg/dL (0.0-0.5); Bilirubin Total 1.1 mg/dL (0.0-1.0); Total Protein 5.7 g/dL (6.5-8.0)
--- NOTE | 2020-06-06 18:32 | HO.POSTANES ---
Post Anesthesia Evaluation Post Anesthesia Evaluation Vital Signs: Vital Signs Temp Pulse Resp BP Pulse Ox 06/06/20 15:37 98.1 F 79 18 126/58 L 94 06/06/20 12:00 99.2 F 86 18 128/72 99 06/06/20 09:30 77 125/63 06/06/20 08:00 97.2 F 77 18 125/63 98 Anesthesia: General Mental Status: Awake Pain Control: Satisfactory Nausea/Vomiting: None Hydration: Adequate Anesthesia-Related Issues: No Anes. Related Issues
--- NOTE | 2020-06-06 18:47 | PC.NURSE ---
Dr Suh in to reassess hematoma, removed pressure dsg and surgical dsg. No new bleeding noted. MD place new dsg and pressure dsg. Will continue to monitor, MD wants pt to stay one more day, pt ok with plan.
[2020-06-06 19:03] LABS: Osmolality Urine 348 mosm/kg (373-1093)
[2020-06-06 19:20] LABS: Vitamin D 25-OH Total 24.6 ng/mL (>30)
[2020-06-07] VITALS (8 sets, daily range): BP systolic 96–123; BP diastolic 61–86; PULSE 69–85; RESP 18; TEMP 36.3–36.8; O2SAT 91–100
[2020-06-07] MEDS: ceFAZolin Sodium/Dextrose,Iso 2 GM/50 ML PIGGYBACK IV ×2 (06:11→13:46)
[2020-06-07 07:45] LABS: Hematocrit 32.5 % (42-52); Hemoglobin 11.2 g/dl (14.0-18.0); Mean Corpuscular HGB Conc 34.5 g/dl (31.0-36.0); Mean Corpuscular Hemoglobin 31.5 pg (27.0-33.0); Mean Corpuscular Volume 91.5 fL (80-98); Platelet Count 121 X10*3/uL (160-400); Red Blood Count 3.55 X10*6/uL (4.60-5.80); Red Cell Distribution Width 13.5 % (11.0-16.0); White Blood Count 5.8 X10*3/uL (4.8-10.8)
[2020-06-07 07:56] LABS: Prothrombin Time 12.4 SEC (10.8-13.0)
[2020-06-07 08:29] LABS: Blood Urea Nitrogen 10 mg/dL (9-16); Estimated Glomerular Filt Rate > 60; Glucose Random 83 mg/dL (60-115)
[2020-06-07 08:51] LABS: Anion Gap 10 (12-20); Calcium 8.2 mg/dL (8.4-10.2); Carbon Dioxide 27 mmol/L (22-29); Chloride 95 mmol/L (96-108); Potassium 3.8 mmol/l (3.3-5.1); Sodium 128 mmol/L (135-145)
[2020-06-07] MEDS: Metoprolol Succinate ER 50 MG TAB.ER.24H PO (09:05)
[2020-06-07] MEDS: 0.9 % Sodium Chloride Flush 3 ML SYRINGE IVFLUSH ×2 (09:05→17:24)
[2020-06-07] MEDS: Atorvastatin Calcium 80 MG TABLET PO (09:05)
--- NOTE | 2020-06-07 11:53 | PM.PNNEP ---
Subjective Subjective Date of Service: 06/07/20 Interval history: Patient seen and examined consult dictated Physical Exam Vital Signs: Vital Signs: Last Vital Signs Temp 98.2 F 06/07/20 11:44 Pulse 85 06/07/20 11:44 Resp 18 06/07/20 11:44 BP 100/86 06/07/20 11:44 Pulse Ox 94 06/07/20 11:44 Body Mass Index 24.9 Objective Data Labs CBC & Chem 7: 06/07/20 07:33 06/07/20 07:33 Labs: Laboratory Results - last 24 hr 06/06/20 06/06/20 06/06/20 08:06 08:06 17:45 WBC RBC Hgb Hct MCV MCH MCHC RDW Plt Count MPV Absolute Nucleated RBC Nucleated RBC % (auto) PT INR Sodium Potassium Chloride Carbon Dioxide Anion Gap BUN Creatinine Estim Creat Clear Calc Estimated GFR Random Glucose Osmolality 267 L Calcium Total Bilirubin 1.1 H Direct Bilirubin 0.5 AST 22 ALT 13 Alkaline Phosphatase 90 Total Protein 5.7 L Albumin 3.8 25-OH Vitamin D Total 24.6 TSH 1.40 Urine Osmolality 348 L 06/07/20 06/07/20 06/07/20 07:33 07:33 07:33 WBC 5.8 RBC 3.55 L Hgb 11.2 L Hct 32.5 L MCV 91.5 MCH 31.5 MCHC 34.5 RDW 13.5 Plt Count 121 L MPV 9.0 L Absolute Nucleated RBC 0.000 Nucleated RBC % (auto) 0.0 PT 12.4 INR 1.0 Sodium 128 L Potassium 3.8 D Chloride 95 L Carbon Dioxide 27 Anion Gap 10 L BUN 10 Creatinine 0.68 Estim Creat Clear Calc 81.0 Estimated GFR > 60 Random Glucose 83 Osmolality Calcium 8.2 L D Total Bilirubin Direct Bilirubin AST ALT Alkaline Phosphatase Total Protein Albumin 25-OH Vitamin D Total TSH Urine Osmolality Assessment & Plan Assessment and plan (1) Hyponatremia: Status: Acute (2) Heart failure with reduced ejection fraction: Status: Acute Assessment and Plan: hypotonic hyponatremia, has history of chronic hyponatremia isovolemic elevated urine sodium Uosm> Sosm multifactorial: -poor solute excretion -excessive free water intake (beers) -CHF known systolic CHF LVEF 20-30% poor prognostic factor REC discontinue IVF fluid restriction follow kidney function and electrolytes Thank you Time Spent With Patient Time: Total time spent is greater than 50% in coordination of care (as documented) at patient's floor/unit and/or counseling patient:
--- NOTE | 2020-06-07 13:36 | MHC.CM.PN ---
Home remains the goal for dc. Renal saw Patient today and recommendations were made. CM will follow for dc planning and possible need to adjust the dc plan.
--- NOTE | 2020-06-07 14:30 | CONS_ITS ---
DATE OF SERVICE: 06/07/2020 This is a 74-year-old patient with a history of chronic hyponatremia and underlying systolic congestive heart failure with left ventricular ejection fraction in the range of 30% to 35%, who presented to the hospital for ICD placement, noted to have a low serum sodium. Patient denies any chest pain or shortness of breath. Denies nausea, vomiting, or diarrhea. He tells me he drinks half to 3/4 of a gallon of water on a daily basis. He has a history of heavy smoking. Denies currently any pain. PAST MEDICAL HISTORY: Remarkable for hypertension, congestive heart failure, COPD, history of compression fracture, left ventricular mural thrombus, dyslipidemia, coronary artery disease, peripheral vascular disease. PAST SURGICAL HISTORY: Notable for bilateral fem bypass, hemorrhoidectomy. MEDICATIONS: As an outpatient reviewed include warfarin, metoprolol, lisinopril, calcium carbonate, atorvastatin, albuterol, lisinopril. ALLERGIES: HE IS NOT ALLERGIC TO MEDICATIONS. SOCIAL HISTORY: He has a history of smoking. FAMILY HISTORY: Negative for kidney disease. REVIEW OF SYSTEMS: Ten-point systems negative except pertinent in history of present illness. PHYSICAL EXAMINATION: VITAL SIGNS: Blood pressure 100/86, heart rate 85, respiratory rate 18, temperature afebrile. CONSTITUTIONAL: Looks his stated age. No acute distress. NEUROLOGIC: Alert, awake. HEENT: Head atraumatic, normocephalic. Eyes, pupils are equal and reactive to light. Anicteric sclerae. NECK: Supple. LUNGS: Decreased breath sounds. CARDIOVASCULAR: S1, S2. No rub. ABDOMEN: Soft, nontender. EXTREMITIES: No peripheral edema. LABS: Showed sodium 128, potassium 3.8, chloride 95, CO2 27, BUN 10, creatinine 0.68. Serum osmolality 267. Urine sodium 46. Urine osmolality 348. IMPRESSION: 1. Hyponatremia. 2. Heart failure with reduced ejection fraction. This is a patient, who presents with hypotonic hyponatremia. His physical examination is not consistent with either hyper or hypovolemia. He appears to be close to dry weight. On the other hand, he has an elevated urine osmolality and urine sodium as well. He does have a history of chronic hyponatremia with serum sodium in the range of 127 to 129, which appears to be a poor prognostic factor in a patient with underlying heart failure. He also has a component of excessive free water intake and probably poor solid excretion which is contributing to his hyponatremia. My recommendation would be to restrict his fluid intake for the time being. He is not a candidate for urea powder and I will follow closely his kidney function and electrolytes and discontinue IV fluid. Thank you for allowing me to participate in the care of this patient. MD ABRAHAM Duran/HUAL / [phone]
--- NOTE | 2020-06-07 15:32 | MHC.CM.PN ---
Per MD, Patient will be medically cleared for dc to home today with new [facility]. CM spoke with Patient, who explained that his late had [facility] and he is requesting a referral there for himself. [facility] has been notified of today's dc. PCP is from [facility]. Patient's Daughter will provide transportation to home.
--- NOTE | 2020-06-07 18:38 | PM.PNCARD ---
Subjective Subjective Date of Service: 06/07/20 Interval history: Patient denies any pain at site Physical Exam Vital Signs: Last Vital Signs Temp 97.4 F 06/07/20 15:42 Pulse 78 06/07/20 15:42 Resp 18 06/07/20 15:42 BP 111/62 06/07/20 15:42 Pulse Ox 91 L 06/07/20 15:42 Body Mass Index 24.9 Const Other: Const General: Physically active HENAZ Mouth: Normal oral and palatal mucosa present Resp Effort & Inspection: normal respiratory effort Auscultation: clear to auscultation bilaterally Cardio Jugular venous distension: no JVD Rate: regular rate Extrem General: Yes normal to inspection and No edema Incision site: c/d/i, hematoma improving in size, no further bleeding on gauze Results Labs and Meds Result diagrams: 06/07/20 07:33 06/07/20 07:33 Lab results: Laboratory Results - last 24 hr 06/06/20 06/06/20 06/07/20 08:06 17:45 07:33 WBC 5.8 RBC 3.55 L Hgb 11.2 L Hct 32.5 L MCV 91.5 MCH 31.5 MCHC 34.5 RDW 13.5 Plt Count 121 L MPV 9.0 L Absolute Nucleated RBC 0.000 Nucleated RBC % (auto) 0.0 PT INR Sodium Potassium Chloride Carbon Dioxide Anion Gap BUN Creatinine Estim Creat Clear Calc Estimated GFR Random Glucose Calcium 25-OH Vitamin D Total 24.6 TSH 1.40 Urine Osmolality 348 L 06/07/20 06/07/20 07:33 07:33 WBC RBC Hgb Hct MCV MCH MCHC RDW Plt Count MPV Absolute Nucleated RBC Nucleated RBC % (auto) PT 12.4 INR 1.0 Sodium 128 L Potassium 3.8 D Chloride 95 L Carbon Dioxide 27 Anion Gap 10 L BUN 10 Creatinine 0.68 Estim Creat Clear Calc 81.0 Estimated GFR > 60 Random Glucose 83 Calcium 8.2 L D 25-OH Vitamin D Total TSH Urine Osmolality Progress Note: A&P Assessment and plan (1) Hematoma: Status: Acute Assessment and Plan: Hematoma is improving Plan Discharge home on keflex for 7 days. We will keep dresssing on until he sees me on 06/12 and will not shower until then. He will let me know if he has more swelling, fevers, chills, discharge from incision site Fall Risk Details Current Medications: Current Medications Generic Name Dose Route Start Last Admin Trade Name Freq PRN Reason Stop Dose Admin Acetaminophen 650 mg 06/05/20 16:53 06/06/20 06:44 Acetaminophen 325 Mg Tablet PO 650 mg Q6H PRN Administration Pain, Mild (Pain Scale 1-3) Albuterol Sulfate 2 puff 06/05/20 15:31 06/05/20 18:45 Albuterol Sulfate 90 Mcg 8 Gm Inhaler INHALE 2 puff Q6H PRN Administration Shortness Of Breath Or Wheezing Atorvastatin Calcium 80 mg 06/06/20 09:00 06/07/20 09:05 Atorvastatin Calcium 80 Mg Tablet PO 80 mg DAILY CHERELLE Administration Calcium Carbonate 500 mg 06/05/20 21:00 06/07/20 09:05 Calcium Carbonate 500 Mg Tablet PO 500 mg BID CHERELLE Administration Cefazolin Sodium/Dextrose 2 gm in 50 mls @ 100 mls/hr 06/06/20 14:00 06/07/20 14:50 Ancef IV Infused Q8H CHERELLE Infusion Metoprolol Succinate 50 mg 06/06/20 09:00 06/07/20 09:05 Metoprolol Succinate Er 50 Mg Tab.Er.24h PO 50 mg DAILY CHERELLE Administration Protocol Ondansetron HCl 4 mg 06/05/20 16:53 Ondansetron Hcl 4 Mg/2 Ml Vial IVPUSH Q8H PRN Nausea and Vomiting Sodium Chloride 3 ml 06/06/20 00:00 06/07/20 17:24 0.9 % Sodium Chloride Flush 3 Ml Syringe IVFLUSH 3 ml QSHIFT CHERELLE Administration Tiotropium [place] 1 puff 06/06/20 08:00 06/07/20 07:37 Tiotropium [place] 18 Mcg Cap.W.Dev INHALE 1 puff RDAILY CHERELLE Administration Time Spent With Patient Time: Total time spent is greater than 50% in coordination of care (as documented) at patient's floor/unit and/or counseling patient: Time with patient: 15 - 24 minutes
--- NOTE | 2020-06-07 18:41 | P.DS_ITS ---
DS: Providers Provider Date of admission: 06/05/20 12:42 Primary care physician: JULIET Lawrence Consults: 06/06/20 07:53 Consult to Infectious Diseases Routine Consulting Provider: Marjorie Merino Reason for consultation: postopertaive hematoma /swellin Has provider been notified: No 06/06/20 17:37 Consult to Nephrology Routine Consulting Provider: Harry Retana Reason for consultation: Hyponatremia Has provider been notified: No DS: Diagnosis Discharge Diagnosis (1) Hematoma: Status: Acute DS: Medications Discharge Medications Home Medications: Home Medications Medication Instructions Recorded Confirmed albuterol sulfate 90 mcg/actuation 2 puff PO Q6H PRN 05/03/20 05/22/20 aerosol inhaler atorvastatin 80 mg tablet 80 mg PO DAILY 05/03/20 05/22/20 calcium carbonate 600 mg calcium 600 mg PO BID 05/03/20 05/22/20 (1,500 mg) tablet ergocalciferol (vitamin D2) 50 mcg 100 mcg PO cap 05/03/20 05/03/20 (2,000 unit) capsule metoprolol succinate 50 mg 50 mg PO DAILY 05/03/20 05/22/20 tablet,extended release 24 hr tiotropium bromide 2.5 1 inh INHALATION BID 05/03/20 05/22/20 mcg/actuation mist for inhalation Previous Rx's Medication Instructions Recorded warfarin 4 mg tablet 4 mg PO DAILY #90 tab 03/21/20 lisinopril 10 mg tablet 10 mg PO DAILY #30 cap 04/22/20 tiotropium 2.5 mcg-olodaterol 2.5 2 puff INHALATION Q24H 90 Days #3 05/22/20 mcg/actuation mist for inhalation ea cephalexin 500 mg PO Q8H #21 cap 06/07/20 DS: Summary Hospital Course Hospital Course: 74-year-old man status post ICD placement secondary to ischemic cardiomyopathy with systolic heart failure, EF of 30% to 35%. He had a single-chamber ICD implantation placed. His vital signs are stable. He is quite a heavy smoker, smoking at least a pack to half a pack of cigarettes a day and drinking 6 beers a day. He denies any history of withdrawal. Labs from today show a low sodium of 125 and other labs within acceptable limits. He did have a Coronavirus PCR, which was negative. He reported that he had stopped his warfarin yesterday, he has a history of cardiac thrombus. He will be admitted to [facility] for observation. PAST MEDICAL HISTORY: Reviewed. 1. COPD. 2. Emphysema. 3. History of compression fracture. 4. Ischemic cardiomyopathy with EF less than 30%. 5. Left ventricular mural thrombus. 6. Hyperlipidemia. 7. Hypertension. 8. Coronary artery disease. 9. Peripheral vascular disease. Hospital Course problem by section:Patient came for placement of AICD due to LV dysfunction probably-got AICD if and subsequently developed hematoma at the AICD site-which was increasing initially: Treated with pressure bandage is as well as monitoring H&H which is stable around 11 range, hematoma site is also looking less swelling less swelling today and patient is asymptomatic. Discussed with thoracic surgeon and cardio: Hold warfarin-patient is to follow-up with thoracic surgery on Friday 09:00 and further use of warfarin will be decided upon that time. Monitor CBC. In addition patient has hyponatremia which is probably multifactorial: Euvolemic: poor solute excretion, excessive free water intake We recommend patient to keep fluid restriction around 1.5 liter/day Monitor renal function and electrolytes with PCP and few days and further management as per PCP. Patient was also told to avoid alcohol use that might be contributing to his hypo natremia also Patient has AICD placed: Also has swelling and hematoma in the area, patient is to follow-up with Dr. Ronnie Rick outpatiently. Time Spent with Patient Time attestation: Total time spent providing and/or coordinating discharge services: Physical Exam Vital Signs: Vital Signs: Last Vital Signs Temp 97.4 F 06/07/20 15:42 Pulse 78 06/07/20 15:42 Resp 18 06/07/20 15:42 BP 111/62 06/07/20 15:42 Pulse Ox 91 L 06/07/20 15:42 Body Mass Index 24.9 Constitutional: Not in distress Cvs: rrr, [id number] , no murmur res: clear to auscultation ,no rhonchii or wheezing abd: no rebound or guarding ,nt, bs present. ext pulses present , no cyanosis skin: left upper pectoral area has swelling seems improving , status post compression bandage neuro: axo3 , nonfocal. DS: Data Data Completed and Pending Labs on day of discharge: 06/05/20 XR chest 1V Urgent 06/05/20 Breakfast NPO Diet 06/05/20 11:37 Albuterol Sulfate (0.083%) [Ventolin (0.083%)] 2.5 mg INHALE PREOP ONE 06/05/20 11:45 Lactated Ringers [Lr] 1,000 ml IVCONT 20 mls/hr 06/05/20 11:57 Basic Metabolic Panel Fasting Stat Complete Blood Count no Diff Stat Prothrombin Time INR Stat 06/05/20 11:59 COVID-19 ID NOW ([place]) Stat 06/05/20 12:40 Lidocaine HCl 2 % MPF [Xylocaine 2 % MPF] 5 ml .ROUTE .STK-MED ONE propofoL [Diprivan] 200 mg IVPUSH .STK-MED ONE 06/05/20 12:58 Lidocaine HCl 2 % [Xylocaine 2 %] 20 ml .ROUTE .STK-MED ONE vancomycin HCL 500 mg IV .STK-MED ONE 06/05/20 13:06 FL guidance in OR Routine 06/05/20 13:10 Ketamine HCl/NS 50 mg IVPUSH .STK-MED ONE 06/05/20 13:23 Midazolam HCl/PF [Versed] 2 mg .ROUTE .STK-MED ONE 06/05/20 13:36 Glycopyrrolate [Robinul] 0.2 mg .ROUTE .STK-MED ONE 06/05/20 13:41 ceFAZolin Sodium/Dextrose,Iso [Ancef] 2 gm in 50 ml .ROUTE As directed 06/05/20 13:46 Phenylephrine HCL 1,000 mcg IVPUSH .STK-MED ONE 06/05/20 14:07 ePHEDrine sulfate 50 mg .ROUTE .STK-MED ONE 06/05/20 14:30 Acetaminophen [Ofirmev] 500 mg in 50 ml IV ONCE propofoL [Diprivan] 200 mg IVPUSH .STK-MED ONE 06/05/20 16:54 Vital Signs Q4HR 06/05/20 17:18 Hemoglobin and Hematocrit Urgent 06/05/20 17:45 Osmolality Urine Stat 06/05/20 18:00 Warfarin Sodium [Coumadin] 4 mg PO DAILY@1800 06/05/20 Dinner Low Sodium Diet 06/05/20 19:17 Type and Screen Urgent 06/05/20 21:00 ceFAZolin Sodium/Dextrose,Iso [Ancef] 2 gm in 50 ml IV Q8H ceFAZolin Sodium/Dextrose,Iso [Ancef] 2 gm in 50 ml IV Q8H 06/05/20 21:57 Hemoglobin and Hematocrit Stat 06/05/20 23:58 Osmolality Urine Stat Potassium Urine Random Stat Sodium Urine Random Stat 06/06/20 05:44 Complete Blood Count no Diff DAILY@0600 Prothrombin Time INR DAILY@0600 06/06/20 06:00 XR chest 2V Routine 06/06/20 08:06 Liver Panel Routine Osmolality, Serum Routine Sodium Routine Thyroid Stimulating Hormone Routine Vitamin D 25-OH Total Routine 06/06/20 18:00 Add Laboratory Test Urgent Add Laboratory Test Urgent 06/07/20 07:33 Basic Metabolic Panel DAILY@0600 Complete Blood Count no Diff DAILY@0600 Prothrombin Time INR DAILY@0600 Laboratory Last Values WBC 5.8 X10*3/uL (4.8-10.8) 06/07/20 07:33 RBC 3.55 X10*6/uL (4.60-5.80) L 06/07/20 07:33 Hgb 11.2 g/dl (14.0-18.0) L 06/07/20 07:33 Hct 32.5 % (42-52) L 06/07/20 07:33 MCV 91.5 fL (80-98) 06/07/20 07:33 MCH 31.5 pg (27.0-33.0) 06/07/20 07:33 MCHC 34.5 g/dl (31.0-36.0) 06/07/20 07:33 RDW 13.5 % (11.0-16.0) 06/07/20 07:33 Plt Count 121 X10*3/uL (160-400) L 06/07/20 07:33 MPV 9.0 fL (9.4-12.4) L 06/07/20 07:33 Absolute Nucleated RBC 0.000 X10*3/uL (0.0-0.012) 06/07/20 07:33 Nucleated RBC % (auto) 0.0 /100WBC (0.0-0.2) 06/07/20 07:33 PT 12.4 SEC (10.8-13.0) 06/07/20 07:33 INR 1.0 (0.9-1.1) 06/07/20 07:33 Sodium 128 mmol/L (135-145) L 06/07/20 07:33 Potassium 3.8 mmol/l (3.3-5.1) D 06/07/20 07:33 Chloride 95 mmol/L (96-108) L 06/07/20 07:33 Carbon Dioxide 27 mmol/L (22-29) 06/07/20 07:33 Anion Gap 10 (12-20) L 06/07/20 07:33 BUN 10 mg/dL (9-16) 06/07/20 07:33 Creatinine 0.68 mg/dL (0.5-1.4) 06/07/20 07:33 Estim Creat Clear Calc 81.0 06/07/20 07:33 Estimated GFR > 60 06/07/20 07:33 Random Glucose 83 mg/dL (60-115) 06/07/20 07:33 Fasting Glucose 88 mg/dL (60-99) 06/05/20 11:57 Osmolality 267 mosm/kg (281-305) L 06/06/20 08:06 Calcium 8.2 mg/dL (8.4-10.2) L D 06/07/20 07:33 Total Bilirubin 1.1 mg/dL (0.0-1.0) H 06/06/20 08:06 Direct Bilirubin 0.5 mg/dL (0.0-0.5) 06/06/20 08:06 AST 22 U/L (5-37) 06/06/20 08:06 ALT 13 U/L (0-40) 06/06/20 08:06 Alkaline Phosphatase 90 U/L (39-117) 06/06/20 08:06 Total Protein 5.7 g/dL (6.5-8.0) L 06/06/20 08:06 Albumin 3.8 g/dL (3.5-5.0) 06/06/20 08:06 25-OH Vitamin D Total 24.6 ng/mL (>30) 06/06/20 08:06 TSH 1.40 uIU/mL (0.32-4.0) 06/06/20 08:06 Urine Osmolality 348 mosm/kg (373-1093) L 06/06/20 17:45 Ur Random Sodium 46.0 mmol/L 06/05/20 23:58 Ur Random Potassium 38.0 mmol/l 06/05/20 23:58 COVID-19 ([facility]) Negative (Negative) 06/05/20 11:59 COVID-19 Clin Com See Note 06/05/20 11:59 Blood Type A Positive 06/05/20 19:17 Antibody Screen NEGATIVE 06/05/20 19:17 Discharge Plan Discharge Patient Disposition: Home Health Service Referrals: [facility] [Outside] Ronnie Rick MD [Physician] - (Follow-up in 1 week outpatient) Jesus Langford FNP- [Primary Care Provider] - Discharge Medications: New cephalexin 500 mg capsule 500 mg PO Q8H Qty: 21 RF: 0 Continued lisinopril 10 mg tablet 10 mg PO DAILY Qty: 30 RF: 5 ergocalciferol (vitamin D2) 50 mcg (2,000 unit) capsule 100 mcg PO RF: 0 metoprolol succinate 50 mg tablet extended release 24 hr 50 mg PO DAILY RF: 0 atorvastatin 80 mg tablet 80 mg PO DAILY RF: 0 calcium carbonate 600 mg calcium (1,500 mg) tablet 600 mg PO BID RF: 0 tiotropium bromide 2.5 mcg/actuation mist 1 inh inhalation BID RF: 0 albuterol sulfate 90 mcg/actuation HFA aerosol inhaler 2 puff PO Q6H PRN (Reason: Shortness Of Breath Or Wheezing) RF: 0 Stiolto Respimat 2.5-2.5 mcg/actuation mist 2 puff inhalation Q24H 90 Days Qty: 3 RF: 6 Held warfarin 4 mg tablet 4 mg PO DAILY Qty: 90 RF: 0 Hold Instructions: Resume on 06/12/20. Follow-up with thoracic surgery on Friday 09:00, Dr Rick's office and further use of Coumadin as per thoracic surgery. Discharge Orders: Discharge Order (Routine); Ordered 06/07/20 Ordered By: Gretchen Hernandez Diet: advance to usual diet and other Activity on Discharge: As tolerated Patient Instructions: Implantable Cardioverter Defibrillator (DC) Other Ambulatory Orders: Basic Metabolic Panel Fasting (Routine) Timeframe: 1 Week Facility: [facility] - Location: Laboratory Ordered By: Gretchen Hernandez Complete Blood Count no Diff (Routine) Timeframe: 1 Week Facility: [facility] - Location: Laboratory Ordered By: Gretchen Hernandez Liver Panel (Routine) Timeframe: 1 Week Facility: [facility] - Location: Laboratory Ordered By: Gretchen Hernandez Prothrombin Time INR (Routine) Timeframe: 1 Week Facility: [facility] - Location: Laboratory Ordered By: Gretchen Hernandez Visit Report Forms: Patient Portal Discharge page Care Plan Goals: Patient came for placement of AICD due to LV dysfunction probably-got AICD if and subsequently developed hematoma at the AICD site-which was increasing initially: Treated with pressure bandage is as well as monitoring H&H which is stable around 11 range, hematoma site is also looking less swelling less swelling today and patient is asymptomatic. Discussed with thoracic surgeon and cardio: Hold warfarin-patient is to follow-up with thoracic surgery on Friday 09:00 and further use of warfarin will be decided upon that time. Monitor CBC. In addition patient has hyponatremia which is probably multifactorial: Euvolemic: poor solute excretion, excessive free water intake We recommend patient to keep fluid restriction around 1.5 liter/day Monitor renal function and electrolytes with PCP and few days and further management as per PCP. Patient has AICD placed: Also has swelling and hematoma in the area, patient is to follow-up with Dr. Ronnie Rick outpatiently. Health Concerns: As above. Plan of Treatment: As above.
[2020-06-07] MEDS: cephALEXin 500 MG CAPSULE PO (19:32)
== END 2020-06-07 19:53 | disposition home health service (06) | DRG 243 ==
LOC: HO.IMC 12:53
PROVIDERS: Anesthesiology; Internal Medicine; Nurse Practitioner; Nurse Practitioner Acute Care; Admitting Provider Internal Medicine Cardiovascular Disease; PCP Nurse Practitioner Family; Visit Provider Internal Medicine Cardiovascular Disease
PROC: 0JH604Z Insertion of Pacemaker, Single Chamber into Chest Subcutaneous Tissue and Fascia, Open Approach (ICD-10-PCS; principal; 2020-06-05 13:30)
DX: I11.0 Hypertensive heart disease with heart failure (principal); E87.1 Hypo-osmolality and hyponatremia; L76.32 Postprocedural hematoma of skin and subcutaneous tissue following other procedure; I25.5 Ischemic cardiomyopathy; E78.5 Hyperlipidemia, unspecified; J43.9 Emphysema, unspecified; I50.22 Chronic systolic (congestive) heart failure; I25.10 Atherosclerotic heart disease of native coronary artery without angina pectoris; I25.2 Old myocardial infarction; F17.210 Nicotine dependence, cigarettes, uncomplicated; Z71.6 Tobacco abuse counseling; Z20.828 Contact with and (suspected) exposure to other viral communicable diseases; Z79.01 Long term (current) use of anticoagulants; Z79.899 Other long term (current) drug therapy
CPT/HCPCS: 36415; 71045; 71046; 80048; 80076; 82306; 83930; 83935; 84133; 84295; 84300; 84443; 85014; 85018; 85027; 85610; 86850; 86900; 86901; 87635; 99225; 99232; C1722; J0690; J2250; J2370; J3370

== ENCOUNTER 2020-06-14 09:01 | Outpatient (REF) | payer MEDICARE, OTHER, SELFPAY ==
[2020-06-14 09:27] LABS: Hematocrit 35.1 % (42-52); Hemoglobin 11.9 g/dl (14.0-18.0); Mean Corpuscular HGB Conc 33.9 g/dl (31.0-36.0); Mean Corpuscular Hemoglobin 31.2 pg (27.0-33.0); Mean Corpuscular Volume 91.9 fL (80-98); Mean Platelet Volume 8.7 fL (9.4-12.4); Platelet Count 114 X10*3/uL (160-400); Red Blood Count 3.82 X10*6/uL (4.60-5.80); Red Cell Distribution Width 13.9 % (11.0-16.0); White Blood Count 6.9 X10*3/uL (4.8-10.8)
[2020-06-14 09:32] LABS: INTERNATIONAL NORM RATIO 1.1 (0.9-1.1)
[2020-06-14 09:51] LABS: Alanine Aminotransferase 13 U/L (0-40); Albumin Level 3.9 g/dL (3.5-5.0); Alkaline Phosphatase 99 U/L (39-117); Anion Gap 12 (12-20); Aspartate Amino Transferase 22 U/L (5-37); Bilirubin Direct 0.7 mg/dL (0.0-0.5); Bilirubin Total 1.6 mg/dL (0.0-1.0); Blood Urea Nitrogen 9 mg/dL (9-16); Calcium 8.6 mg/dL (8.4-10.2); Carbon Dioxide 27 mmol/L (22-29); Chloride 93 mmol/L (96-108); Estimated Glomerular Filt Rate > 60; Glucose Fasting 84 mg/dL (60-99); Potassium 4.6 mmol/l (3.3-5.1); Sodium 127 mmol/L (135-145)
== END 2020-06-14 09:02 | disposition home or self-care (01) ==
LOC: HO.LAB 09:01
PROVIDERS: Absent Provider Nurse Practitioner Family; PCP Nurse Practitioner Family; Visit Provider Internal Medicine
DX: D64.9 Anemia, unspecified (principal); E87.1 Hypo-osmolality and hyponatremia; I51.3 Intracardiac thrombosis, not elsewhere classified; T14.8XXA Other injury of unspecified body region, initial encounter
CPT/HCPCS: 36415; 80048; 80076; 85027; 85610

== ENCOUNTER → 2020-06-20 08:56 | Outpatient (BNVA) | payer MEDICARE, OTHER, SELFPAY | PROVIDERS: PCP Nurse Practitioner Family; Visit Provider Internal Medicine | DX: I51.3 Intracardiac thrombosis, not elsewhere classified (principal); Z51.81 Encounter for therapeutic drug level monitoring; Z79.01 Long term (current) use of anticoagulants | CPT/HCPCS: 85610; 99211 ==

== ENCOUNTER → 2020-06-27 09:05 | Outpatient (BNVA) | payer MEDICARE, OTHER, SELFPAY | PROVIDERS: PCP Nurse Practitioner Family; Visit Provider Internal Medicine | DX: I51.3 Intracardiac thrombosis, not elsewhere classified (principal); Z51.81 Encounter for therapeutic drug level monitoring; Z79.01 Long term (current) use of anticoagulants | CPT/HCPCS: 85610; 99211 ==

== ENCOUNTER → 2020-07-10 13:31 | Outpatient (BNVA) | payer MEDICARE, SELFPAY | PROVIDERS: PCP Nurse Practitioner Family; Visit Provider Internal Medicine | DX: Z76.89 Persons encountering health services in other specified circumstances (principal) | CPT/HCPCS: Q3014 ==

== ENCOUNTER 2020-07-16 19:38 | Emergency (ER) | payer MEDICARE, SELFPAY ==
[2020-07-16 19:45] VITALS: BP 94/63; PULSE 69; RESP 18; TEMP 35.8; O2SAT 98; BMI 25.0
--- NOTE | 2020-07-16 20:06 | XR_ITS ---
EXAMINATION: XR ANKLE, LEFT CLINICAL INFORMATION: Status post fall. Left ankle pain. COMPARISON: None TECHNIQUE: AP, lateral, and mortise views of the left ankle. FINDINGS: A linear lucency is noted through the medial malleolus suggesting hairline fracture here. No additional fractures are noted. Mild soft tissue swelling is noted over the medial malleolus. The fracture appears to be extending in to the articular surface. Ankle mortise is intact. Diffuse arterial calcifications are seen. XR/XR ankle LT min 3V IMPRESSION: Nondisplaced intra-articular hairline fracture through the medial malleolus of the left tibia. Ankle mortise is intact.
--- NOTE | 2020-07-16 20:06 | CT_ITS ---
EXAMINATION: CT CHEST WITHOUT CONTRAST CLINICAL INFORMATION: Status post fall. Blunt injury on Coumadin. COMPARISON: 12/21/2019 TECHNIQUE: Multidetector volumetric CT imaging of the chest was done. Axial MIP volume rendering provided. Sagittal and coronal reformatted images were obtained. This CT examination was performed using dose optimization techniques as appropriate, variously including the following: *Automated exposure control. *Adjustment of mA and/or kV according to patient size (this includes techniques or standardized protocols for targeted exams where dose is matched to indication/reason for exam; i.e. extremities or head). *Use of iterative reconstruction technique. DLP: 233 mGy-cm FINDINGS: LUNGS: Central airway are patent. Evidence of emphysematous changes. There is a 7 mm nodule right middle lobe image 282 series 6, with slightly irregular margins, appearing slightly more prominent as compared to previous measurement of 5 mm. Triangular opacity in the anterolateral right lower lobe adjacent pleura measuring 1.5 x 0.8 cm, stable by today's measurements. Scattered small nodular opacities otherwise stable. No new nodular opacities identified. No dense consolidation. MEDIASTINUM: Left-sided pacemaker with single lead. No enlarged mediastinal or hilar lymph nodes are seen. Normal caliber aorta. Normal heart size. No pericardial effusion. Severe coronary artery calcification. PLEURA: There is no pleural effusion. No pleural mass or thickening. AXILLA: No lymphadenopathy. No chest wall mass. UPPER ABDOMEN: A 4.2 cm cystic focus in the right upper renal pelvis, partially imaged, could represent a parapelvic cyst versus distended pelvis. Severe calcification of the right, greater than left, renal artery origins. Gallstones. OSSEOUS STRUCTURES: T8 vertebral body with vertebroplasty. T7 vertebral body compression fracture, unchanged from previous. CT/CT chest wo con IMPRESSION: 1. There is a 7 mm nodule right middle lobe, appearing slightly larger as compared to the previous measurement of 5 mm. This nodule has slightly irregular margins. Given interval change, further evaluation with PET/CT can be considered. Alternately, short-term follow up 3-month CT is recommended. 2. Stable triangular opacity in the anterolateral aspect of the right lower lobe. 3. Right renal pelvis cystic focus, probable parapelvic cyst versus dilated renal pelvis. Follow-up ultrasound can be obtained for confirmation. 4. Gallstones. 5. T8 vertebral body vertebroplasty. Unchanged T7 vertebral body compression fracture.
--- NOTE | 2020-07-16 20:35 | ED_ITS ---
HPI - General Adult General Chief complaint: General Medical Stated complaint: LT ANKLE S/P TRIP AND FALL YESTERDAY Time Seen by Provider: 07/16/20 19:59 Source: patient Mode of arrival: EMS Limitations: no limitations History of Present Illness HPI narrative: Patient id came here with mechanical fall after tripped on a dog came with pain in the left ankle also patient hit the 45 in TV which fell on his left chest and patient is now complaining pain in lower ribs of left front chest . No bruising no swelling no shortness of breath no abdominal pain patient denies any headache no head injuries no other injuries Onset (ago): minute(s) Related Data Home Medications Medication Instructions Recorded Confirmed albuterol sulfate 90 mcg/actuation 2 puff PO Q6H PRN 05/03/20 07/10/20 aerosol inhaler atorvastatin 80 mg tablet 80 mg PO DAILY 05/03/20 07/10/20 calcium carbonate 600 mg calcium 600 mg PO BID 05/03/20 07/10/20 (1,500 mg) tablet ergocalciferol (vitamin D2) 50 mcg 100 mcg PO cap 05/03/20 07/10/20 (2,000 unit) capsule metoprolol succinate 50 mg 50 mg PO DAILY 05/03/20 07/10/20 tablet,extended release 24 hr tiotropium bromide 2.5 1 inh INHALATION BID 05/03/20 07/10/20 mcg/actuation mist for inhalation Previous Rx's Medication Instructions Recorded warfarin 4 mg tablet 4 mg PO DAILY #90 tab 03/21/20 lisinopril 10 mg tablet 10 mg PO DAILY #30 cap 04/22/20 cephalexin 500 mg PO Q8H #21 cap 06/07/20 tiotropium 2.5 mcg-olodaterol 2.5 2 puff INHALATION Q24H 90 Days #3 07/06/20 mcg/actuation mist for inhalation ea tramadol 50 mg PO Q6H PRN #20 tab 07/16/20 Allergies Allergy/AdvReac Type Severity Reaction Status Date / Time No Known Allergies Allergy Verified 07/10/20 14:01 Review of Systems Review of Systems: Yes all other systems are reviewed and are negative PMFSH Past Medical History Medical History CAD (coronary artery disease) Carotid artery disease COPD (chronic obstructive pulmonary disease) HTN (hypertension) Hyperlipidemia Ischemic cardiomyopathy LV (left ventricular) mural thrombus [place] (myocardial infarction) Osteoporosis PVD (peripheral vascular disease) Vitamin D deficiency Surgical History Hx of colonoscopy Hx of hemorrhoidectomy Hx of kyphoplasty Hx of vascular surgery Family History Family History Father No problems noted. Mother Diabetes Social History Social History Household Members: Children Housing: House Alcohol intake: current Alcohol intake frequency: holidays/special occasions only Alcohol type: beer Smoking Status: Smoker, status unknown Tobacco Type: Cigarette Packs Per Day: 1 Cigarettes Per Day: 20.0 Years Smoked: 52 Second Hand Smoke Exposure: No Advance Directives: No Advance Directives Information Provided: Yes service: Yes Current occupational status: retired Physical Exam Vital Signs: Vital Signs: Last Vital Signs Temp 96.4 F L 07/16/20 19:45 Pulse 69 07/16/20 19:45 Resp 18 07/16/20 19:45 BP 94/63 07/16/20 19:45 Pulse Ox 98 07/16/20 19:45 Body Mass Index 25.0 Const: General: comfortable and no acute distress Nutritional Appearance: average body habitus Orientation/consciousness: patient oriented x3 Limitations: no limitations HENMT: Head: Yes normocephalic Ears: hearing grossly normal bilaterally General nose exam: Normal external nose present Mouth: Normal oral and palatal mucosa present Eyes: General: appearance normal, both eyes and all related structures Neck: Neck: Yes normal visual inspection and Yes full ROM Chest: Chest palpation & inspection: normal inspection of the chest Chest/axillae images: 1. Tender left 7 8 rib in midclavicular line no crepitus no ecchymosis Resp: Effort & Inspection: normal respiratory effort Auscultation: clear to auscultation bilaterally, no crackles, no rales, no rhonchi and no wheezes Cardio: Jugular venous distension: no JVD Rate: regular rate Rhythm: abnormal rhythm irregularly irregular Heart sounds: S1 normal heart sound present and S2 normal heart sound present GI: Inspection: Yes normal to inspection Palpation (GI): Soft to palpation and nontender Percussion: Yes normal to percussion Auscultation: normal bowel sounds : General: Yes no CVA tenderness Back/Spine/Pelvis: Back: no CVA tenderness Thoracic/Lumbar Spine: thoracic and lumbar spine normal to inspection Skin: General skin exam: no rashes or lesions noted Neuro: General: patient oriented x3 and no focal motor deficits Extrem: Ankle/foot/toe images: 1. Diffuse swelling with tenderness no deformity neurovascular intact Medical Decision Making MDM Narrative Medical decision making narrative: Patient status post mechanical fall with no head injury chest CT is negative for any effusion/contusion or rib fracture left ankle x-ray showed healing fracture of the medial malleolus. Walker boot was given to the patient patient has a walker at home Lab Data Lab results reviewed: Yes I reviewed the patient's lab results. Result diagrams: 07/16/20 22:17 07/16/20 22:17 Labs: Lab Results 07/16/20 07/16/20 07/16/20 Range/Units 22:17 22:17 22:17 WBC 6.4 (4.8-10.8) X10*3/uL RBC 4.41 L (4.60-5.80) X10*6/uL Hgb 13.8 L (14.0-18.0) g/dl Hct 40.1 L (42-52) % MCV 90.9 (80-98) fL MCH 31.3 (27.0-33.0) pg MCHC 34.4 (31.0-36.0) g/dl RDW 13.3 (11.0-16.0) % Plt Count TNP MPV 9.7 (9.4-12.4) fL Immature Gran % (Auto) 0.2 (0.0-0.4) % Neut % (Auto) 62.3 (45-73) % Lymph % (Auto) 24.3 (20-40) % Murray % (Auto) 10.7 (2-11) % Eos % (Auto) 1.7 (0-4) % Baso % (Auto) 0.8 (0-2) % Lymph # (Auto) 1.6 (1.2-4.9) X10*3/uL Murray # (Auto) 0.7 (0.1-1.2) X10*3/uL Eos # (Auto) 0.1 (0.0-0.4) X10*3/uL Baso # (Auto) 0.1 (0.0-0.2) X10*3/uL Abs Immat Gran (auto) 0.01 (0.00-0.03) X10*3/uL Absolute Neuts (auto) 4.0 (2.0-8.3) X10*3/uL Absolute Nucleated RBC 0.000 (0.0-0.012) X10*3/uL Nucleated RBC % (auto) 0.0 (0.0-0.2) /100WBC Smear Tech's Comments VERIFIED PT 29.1 H D (10.8-13.0) SEC INR 2.4 H (0.9-1.1) Sodium 129 L (135-145) mmol/L Potassium 3.6 (3.3-5.1) mmol/L Chloride 94 L (96-108) mmol/L Carbon Dioxide 26 (22-29) mmol/L Anion Gap 13 (12-20) BUN 4 L D (9-16) mg/dL Creatinine 0.71 (0.5-1.4) mg/dL Estim Creat Clear Calc 104.7 Estimated GFR > 60 Random Glucose 67 (60-115) mg/dL Calcium 8.5 (8.4-10.2) mg/dL Discharge Plan Discharge Clinical Impression: Closed tibia fracture Qualifiers: Encounter type: initial encounter Tibia location: medial condyle Fracture alignment: nondisplaced Laterality: left Qualified Code(s): S82.135A - Nondisplaced fracture of medial condyle of left tibia, initial encounter for closed fracture Chest wall contusion Qualifiers: Encounter type: initial encounter Laterality: left Qualified Code(s): S20.212A - Contusion of left front wall of thorax, initial encounter Patient Disposition: Home, Self-Care Instructions: Ankle Fracture (ED), Rib Contusion (ED) Additional Instructions: Wear walker boot for support and use walker. Pain medication as advised. Report to the ER if increased chest pain or shortness of breath Follow-up with orthopedics for ankle fracture which likely going to heal Prescriptions: New tramadol 50 mg tablet 50 mg PO Q6H PRN (Reason: pain) Qty: 20 RF: 0 No Action lisinopril 10 mg tablet 10 mg PO DAILY Qty: 30 RF: 5 cephalexin 500 mg capsule 500 mg PO Q8H Qty: 21 RF: 0 Stiolto Respimat 2.5-2.5 mcg/actuation mist 2 puff inhalation Q24H 90 Days Qty: 3 RF: 6 warfarin 4 mg tablet 4 mg PO DAILY Qty: 90 RF: 0 Hold Instructions: Resume on 06/12/20. Follow-up with thoracic surgery on Friday 09:00, Dr Rick's office and further use of Coumadin as per thoracic surgery. ergocalciferol (vitamin D2) 50 mcg (2,000 unit) capsule 100 mcg PO RF: 0 metoprolol succinate 50 mg tablet extended release 24 hr 50 mg PO DAILY RF: 0 atorvastatin 80 mg tablet 80 mg PO DAILY RF: 0 calcium carbonate 600 mg calcium (1,500 mg) tablet 600 mg PO BID RF: 0 tiotropium bromide 2.5 mcg/actuation mist 1 inh inhalation BID RF: 0 albuterol sulfate 90 mcg/actuation HFA aerosol inhaler 2 puff PO Q6H PRN (Reason: Shortness Of Breath Or Wheezing) RF: 0 Referrals: Mak Donnelly MD [Physician] - 10 days Interventions: ED Discharge Assessment Last Done: 07/16/20 22:52 Discharge Date/Time: 07/16/20 22:53
[2020-07-16] MEDS: Acetaminophen 325 MG TABLET 650 MG PO (21:17)
--- NOTE | 2020-07-16 21:20 | PC.NURSE ---
MEDICATED FOR PAIN. BOOT APPLIED BY ERT.
[2020-07-16 22:28] LABS: Hemoglobin 13.8 g/dl (14.0-18.0); Imm Gran Abs Auto 0.01 X10*3/uL (0.00-0.03); Imm Gran Pct Auto 0.2 % (0.0-0.4); MANUAL DIFF FLAG SCAN; Monocytes Absolute Auto 0.7 X10*3/uL (0.1-1.2); Monocytes Percent Auto 10.7 % (2-11); PLT CLUMP 1; SCAN SMEAR FLAG 1
[2020-07-16 22:30] LABS: Basophils Absolute Auto 0.1 X10*3/uL (0.0-0.2); Basophils Percent Auto 0.8 % (0-2); Eosinophils Absolute Auto 0.1 X10*3/uL (0.0-0.4); Eosinophils Percent Auto 1.7 % (0-4); Hematocrit 40.1 % (42-52); Lymphocytes Absolute Auto 1.6 X10*3/uL (1.2-4.9); Lymphocytes Percent Auto 24.3 % (20-40); Mean Corpuscular HGB Conc 34.4 g/dl (31.0-36.0); Mean Corpuscular Hemoglobin 31.3 pg (27.0-33.0); Mean Corpuscular Volume 90.9 fL (80-98); Mean Platelet Volume 9.7 fL (9.4-12.4); Neutrophils Percent Auto 62.3 % (45-73); Red Blood Count 4.41 X10*6/uL (4.60-5.80); Red Cell Distribution Width 13.3 % (11.0-16.0)
[2020-07-16 22:37] LABS: INTERNATIONAL NORM RATIO 2.4 (0.9-1.1); Prothrombin Time 29.1 SEC (10.8-13.0)
[2020-07-16 22:54] LABS: White Blood Count 6.4 X10*3/uL (4.8-10.8)
[2020-07-16 22:55] LABS: SLIDE REVIEW VERIFIED
[2020-07-16 23:00] LABS: Anion Gap 13 (12-20); Blood Urea Nitrogen 4 mg/dL (9-16); Calcium 8.5 mg/dL (8.4-10.2); Carbon Dioxide 26 mmol/L (22-29); Chloride 94 mmol/L (96-108); Creatinine Clr Calc Pharmacy 104.7; Estimated Glomerular Filt Rate > 60; Glucose Random 67 mg/dL (60-115); Potassium 3.6 mmol/L (3.3-5.1); Sodium 129 mmol/L (135-145)
== END 2020-07-16 22:53 | disposition home or self-care (01) ==
PROVIDERS: Emergency Provider Internal Medicine
DX: S82.135A Nondisplaced fracture of medial condyle of left tibia, initial encounter for closed fracture (principal); S20.212A Contusion of left front wall of thorax, initial encounter; M25.572 Pain in left ankle and joints of left foot; W01.190A Fall on same level from slipping, tripping and stumbling with subsequent striking against furniture, initial encounter; Y93.9 Activity, unspecified; Y92.9 Unspecified place or not applicable; Y99.9 Unspecified external cause status; F17.210 Nicotine dependence, cigarettes, uncomplicated; Z71.6 Tobacco abuse counseling; Z79.899 Other long term (current) drug therapy
CPT/HCPCS: 36415; 71250; 73610; 80048; 85025; 85610; 99284

== ENCOUNTER → 2020-07-24 12:51 | Outpatient (BNVA) | payer MEDICARE, OTHER, SELFPAY | PROVIDERS: Visit Provider Physician Assistant | DX: Z13.89 Encounter for screening for other disorder (principal) | CPT/HCPCS: 99202 ==

== ENCOUNTER → 2020-07-25 09:19 | Outpatient (BNVA) | payer MEDICARE, OTHER, SELFPAY | PROVIDERS: Visit Provider Internal Medicine Cardiovascular Disease | DX: Z45.02 Encounter for adjustment and management of automatic implantable cardiac defibrillator (principal); I25.10 Atherosclerotic heart disease of native coronary artery without angina pectoris; I25.5 Ischemic cardiomyopathy; I51.3 Intracardiac thrombosis, not elsewhere classified | CPT/HCPCS: 99212 ==

== ENCOUNTER 2020-08-11 09:06 | Outpatient (REF) | payer MEDICARE, OTHER, SELFPAY ==
--- NOTE | ~2020-08-11 | XR_ITS ---
EXAMINATION: XR ANKLE, LEFT CLINICAL INFORMATION: Displaced fracture of medial malleolus. COMPARISON: 07/16/2020 TECHNIQUE: 4 views of the left ankle. FINDINGS: Redemonstrated are subtle ill-defined lucencies in the medial malleolus, suspicious for an undisplaced intra-articular fracture. Ankle mortise is intact. No other discrete acute fracture is seen. Vascular calcification is noted. XR/XR ankle LT min 3V IMPRESSION: Persistent visualization of nondisplaced intra-articular fracture through the medial malleolus.
== END 2020-08-11 09:07 | disposition home or self-care (01) ==
LOC: HO.XRAY 09:06
PROVIDERS: PCP Nurse Practitioner Family; Visit Provider Physician Assistant
DX: S82.52XA Displaced fracture of medial malleolus of left tibia, initial encounter for closed fracture (principal)
CPT/HCPCS: 73610; 99212

== ENCOUNTER → 2020-09-27 09:29 | Outpatient (BNVA) | payer MEDICARE, OTHER, SELFPAY | PROVIDERS: PCP Nurse Practitioner Family; Visit Provider Internal Medicine | DX: I51.3 Intracardiac thrombosis, not elsewhere classified (principal); Z79.01 Long term (current) use of anticoagulants; Z51.81 Encounter for therapeutic drug level monitoring | CPT/HCPCS: 85610; 99211 ==

== ENCOUNTER → 2020-10-09 11:12 | Outpatient (BNVA) | payer MEDICARE, OTHER, SELFPAY | PROVIDERS: PCP Nurse Practitioner Family; Visit Provider Internal Medicine | DX: Z13.89 Encounter for screening for other disorder (principal) | CPT/HCPCS: Q3014 ==

== ENCOUNTER → 2020-10-12 09:13 | Outpatient (BNVA) | payer MEDICARE, OTHER, SELFPAY | PROVIDERS: PCP Nurse Practitioner Family; Visit Provider Internal Medicine | DX: I51.3 Intracardiac thrombosis, not elsewhere classified (principal); Z51.81 Encounter for therapeutic drug level monitoring; Z79.01 Long term (current) use of anticoagulants | CPT/HCPCS: 85610; 99211 ==

== ENCOUNTER → 2020-10-27 09:12 | Outpatient (BNVA) | payer MEDICARE, OTHER, SELFPAY | PROVIDERS: PCP Nurse Practitioner Family; Referring Provider Nurse Practitioner Family; Visit Provider Nurse Practitioner Family | DX: Z45.02 Encounter for adjustment and management of automatic implantable cardiac defibrillator (principal); I25.5 Ischemic cardiomyopathy; I50.20 Unspecified systolic (congestive) heart failure; I10 Essential (primary) hypertension; E78.5 Hyperlipidemia, unspecified; I25.10 Atherosclerotic heart disease of native coronary artery without angina pectoris; I51.3 Intracardiac thrombosis, not elsewhere classified | CPT/HCPCS: 99212 ==

== ENCOUNTER → 2020-10-31 10:09 | Outpatient (BNVA) | payer MEDICARE, OTHER, SELFPAY | PROVIDERS: PCP Nurse Practitioner Family; Visit Provider Internal Medicine | DX: I51.3 Intracardiac thrombosis, not elsewhere classified (principal); Z51.81 Encounter for therapeutic drug level monitoring; Z79.01 Long term (current) use of anticoagulants | CPT/HCPCS: 85610; 99211 ==

== ENCOUNTER → 2020-11-27 09:11 | Outpatient (BNVA) | payer MEDICARE, OTHER, SELFPAY | PROVIDERS: PCP Nurse Practitioner Family; Visit Provider Internal Medicine | DX: I51.3 Intracardiac thrombosis, not elsewhere classified (principal); Z51.81 Encounter for therapeutic drug level monitoring; Z79.01 Long term (current) use of anticoagulants | CPT/HCPCS: 85610; 99211 ==

== ENCOUNTER → 2020-12-19 09:19 | Outpatient (BNVA) | payer MEDICARE, OTHER, SELFPAY | PROVIDERS: PCP Nurse Practitioner Family; Visit Provider Internal Medicine | DX: I51.3 Intracardiac thrombosis, not elsewhere classified (principal); Z51.81 Encounter for therapeutic drug level monitoring; Z79.01 Long term (current) use of anticoagulants | CPT/HCPCS: 85610; 99211 ==

== ENCOUNTER → 2021-02-01 09:49 | Outpatient (BNVA) | payer MEDICARE, OTHER, SELFPAY | PROVIDERS: PCP Nurse Practitioner Family; Visit Provider Internal Medicine Cardiovascular Disease | DX: Z45.02 Encounter for adjustment and management of automatic implantable cardiac defibrillator (principal); I25.5 Ischemic cardiomyopathy; I51.3 Intracardiac thrombosis, not elsewhere classified; I25.10 Atherosclerotic heart disease of native coronary artery without angina pectoris | CPT/HCPCS: 93005; 99212 ==

== ENCOUNTER → 2021-02-13 09:37 | Outpatient (BNVA) | payer MEDICARE, OTHER, SELFPAY | PROVIDERS: PCP Nurse Practitioner Family; Visit Provider Internal Medicine | DX: I51.3 Intracardiac thrombosis, not elsewhere classified (principal); Z51.81 Encounter for therapeutic drug level monitoring; Z79.01 Long term (current) use of anticoagulants | CPT/HCPCS: 85610; 99211 ==

== ENCOUNTER → 2021-03-06 09:37 | Outpatient (BNVA) | payer MEDICARE, OTHER, SELFPAY | PROVIDERS: PCP Nurse Practitioner Family; Visit Provider Internal Medicine | DX: I51.3 Intracardiac thrombosis, not elsewhere classified (principal); Z51.81 Encounter for therapeutic drug level monitoring; Z79.01 Long term (current) use of anticoagulants | CPT/HCPCS: 85610; 99211 ==

== ENCOUNTER → 2021-03-20 09:26 | Outpatient (BNVA) | payer MEDICARE, OTHER, SELFPAY | PROVIDERS: PCP Nurse Practitioner Family; Visit Provider Internal Medicine | DX: I51.3 Intracardiac thrombosis, not elsewhere classified (principal); Z51.81 Encounter for therapeutic drug level monitoring; Z79.01 Long term (current) use of anticoagulants | CPT/HCPCS: 85610; 99211 ==

== ENCOUNTER → 2021-04-10 09:23 | Outpatient (REF) | payer MEDICARE, OTHER, SELFPAY ==
--- NOTE | 2021-04-10 09:27 | CA_ITS ---
Transthoracic Echocardiogram Patient (Last, First, Middle): Michael Tucker O Gender: Male Date of : 1945 Age: 75 Procedure Date: 04/10/2021 Procedure Type: Transthoracic Echocardiogram Location: OP Height: 162.56 cm Weight: 65.32 kg BSA: 1.70 m2 Heart Rate: bpm BP: 122 / 78 mmHg Automotive Brake Technician: VH/CP Referring MD: Asif Cooper MD Symptoms: I51.3 - Intracardiac thrombosis, not elsewhere classified Study Quality: Fair ECG Rhythm: Sinus Conclusions: - The left ventricular systolic function is moderately decreased. The calculated ejection fraction is 32% by biplane method. - The entire apex and mid anteroseptal segment are akinetic. - No obvious valvular pathology seen on this study. - Cannot exclude apical thrombus. Per tech note, Definity contrast not done as patient had to leave for another appointment. Findings Left Ventricle Normal left ventricular cavity size. There is normal left ventricular wall thickness. The left ventricular systolic function is moderately decreased. The calculated ejection fraction is 32% by biplane method. Evidence suggests grade I (mild) diastolic dysfunction. Wall Motion Rest Echo Findings The entire apex and mid anteroseptal segment are akinetic. Right Ventricle There is a pacemaker wire seen in the right ventricle. Atria Both atria are normal in size. Aortic Valve The aortic valve was not well visualized. There is no aortic valve stenosis. There is no aortic valve regurgitation. Mitral Valve The mitral valve appears normal. There is no mitral valve regurgitation. There is no mitral valve stenosis. Pulmonic Valve The pulmonic valve was not well visualized. Tricuspid Valve Normal tricuspid valve structure. There is trace tricuspid valve regurgitation. The pulmonary artery systolic pressure is normal. Great Vessels The aortic annulus, sinuses of valsalva, and asc aorta are normal in size. Venous The inferior vena cava is normal in size and collapses greater than 50% with inspiration. Pericardium/Pleural There is no evidence of pericardial effusion. Prior Study Comparison No significant change compared to prior study dated: 10/19/2019. Recommendations, Care & Conclusions No obvious valvular pathology seen on this study. Measurements 2D Linear Measurements IVSd: 0.94 0.6-0.9/0.6-1.0 cm LVIDd: 4.86 3.9-5.3/4.2-5.9 cm LVIDd Index: 2.86 2.4-3.2/2.2-3.1 cm/m2 LVIDs: 4.14 2.0-3.6 cm LVPWd: 0.91 0.7-1.1 cm Ao Root: 3.70 2.1-3.5 cm LA Diam: 3.00 2.7-3.8/3.0-4.0 cm LAIDs Index: 1.76 1.5-2.3 cm/m2 LV Mass: 195.09 67-162/88-224 g LV Mass Index: 114.76 43-95/49-115 g/m2 LVOT Diam: 2.00 3.0+(-)1.3 cm 2D Systolic Function EF 4C: 32.20 >55% EF 2C: 32.00 >55% EF BiP: 31.60 >55% Mitral Valve MV Pk E: 0.57 MV PK A: 0.90 MV Decel Time: 308.00 E/A: 0.60 E'Lateral: 6.85 E'Medial: 5.77 E/E' Med: 9.90 E/E' Lat: 8.40 PHT: 90.00 MVA PHT: 2.44 Decel [place]: 1.86 Aortic Valve AoV Pk Cleve: 1.17 AoV Mn Cleve: 0.81 AoV VTI: 0.27 AoV Pk Grad: 5.00 Aov Mn Grad: 3.00 MARIBEL Cont.VTI: 2.51 LVOT LVOT Pk Cleve: 0.82 LVOT Mn Cleve: 0.52 LVOT VTI: 0.22 LVOT Pk Grad: 3.00 LVOT Mn Grad: 1.00 LVOT Diam: 2.00 LVOT Area: 3.14 Diastolic Function MV Pk E: 0.57 MV Pk A: 0.90 E/A: 0.60 E'Medial: 5.77 E/E' Med: 9.90 E' Laterial: 6.85 E/E' Lat: 8.40 Right Ventricle TAPSE (mm): 26.10 TVS' Cleve: 10.70 Tricuspid Valve TR Pk Cleve: 1.72 TR Pk Grad: 12.00 Great Vessels Aorta Ao Root-2D: 3.70 2.0-3.7 cm Ao Asc: 3.20 2.1-3.4 cm Updated in Other Vendor System with Status of Final Behzad Carver MD electronically signed on 04/11/2021 9:24:24 AM with status of Final
== END ==
LOC: HO.CARD 09:23
PROVIDERS: Visit Provider Internal Medicine Cardiovascular Disease
DX: I51.3 Intracardiac thrombosis, not elsewhere classified (principal)
CPT/HCPCS: 85610; 93306; 99211

== ENCOUNTER → 2021-05-01 09:33 | Outpatient (BNVA) | payer MEDICARE, OTHER, SELFPAY | PROVIDERS: Visit Provider Internal Medicine | DX: I51.3 Intracardiac thrombosis, not elsewhere classified (principal); Z51.81 Encounter for therapeutic drug level monitoring; Z79.01 Long term (current) use of anticoagulants | CPT/HCPCS: 85610; 99211 ==

== ENCOUNTER → 2021-05-02 11:04 | Outpatient (REF) | payer MEDICARE, OTHER, SELFPAY ==
--- NOTE | 2021-05-02 11:10 | CA_ITS ---
Transthoracic Echocardiogram Patient (Last, First, Middle): Michael Tucker O Gender: Male Date of : 1945 Age: 75 Procedure Date: 05/02/2021 Procedure Type: Transthoracic Echocardiogram Location: OP Height: 162.56 cm Weight: 65.77 kg BSA: 1.71 m2 Heart Rate: bpm BP: 118 / 60 mmHg Appellate Law Clerk: Referring MD: Cele Irving BUS ATTENDANT-C Symptoms: I25.5 - Ischemic cardiomyopathy Conclusions: - Moderate LV systolic dysfunction with regional wall motion abnormality consistent with ischemic cardiomyopathy with no evidence of LV thrombus Findings Procedure Information Contrast agent, definity, is being given per protocol without apparent complications. Left Ventricle Normal left ventricular cavity size. There is normal left ventricular wall thickness. The left ventricular systolic function is moderately decreased. The visually estimated ejection fraction is between 35-40%. There is evidence of regional wall motion abnormalities. There is no evidence of a thrombus in the left ventricle. Wall Motion Rest Echo Findings The mid anterior and basal anteroseptal segments are hypokinetic. The inferoseptal wall, the apex, apical anterior, apical inferior, apical septum, and mid anteroseptal segments are akinetic. All other scored wall segments showed normal motion. Measurements 2D Systolic Function EF 4C: 49.20 >55% EF 2C: 16.10 >55% EF BiP: 37.70 >55% Updated in Other Vendor System with Status of Final Asif Cooper MD electronically signed on 05/08/2021 8:48:43 AM with status of Final
== END ==
LOC: HO.CARD 11:04
PROVIDERS: Visit Provider Internal Medicine Cardiovascular Disease
DX: I25.5 Ischemic cardiomyopathy (principal)
CPT/HCPCS: 93308; Q9957

== ENCOUNTER 2021-05-21 11:59 | Emergency (ER) | payer MEDICARE, OTHER, SELFPAY ==
--- NOTE | ~2021-05-21 | CT_ITS ---
EXAMINATION: CT THORACIC SPINE WITHOUT CONTRAST CLINICAL INFORMATION: Acute mid back pain with. History of T4 kyphoplasty COMPARISON: CT chest 07/16/2020. TECHNIQUE: Axial 2.0 minutes thin and reformatted 2 mm thin sagittal coronal images of thoracic spine were obtained. This CT examination was performed using dose optimization techniques as appropriate, variously including the following: *Automated exposure control *Adjustment of mA and/or kV according to patient size (this includes techniques or standardized protocols for targeted exams where dose is matched to indication/reason for exam; i.e. extremities or head) *Use of iterative reconstruction technique DLP: 473 mGy-cm FINDINGS: On sagittal reconstructed images there is normal thoracic kyphosis. There is previous T8 compression fracture with cement augmentation changes. There is mild loss of T7 and T8-T9 vertebral height similar to previous CT chest exam 07/16/2020. Rest of the vertebral heights and alignment is normal. There is mild osteopenia. No visible fracture, dislocation or bony abnormality seen. The spinal canal is capacious throughout the thoracic spine. The neural foramina are patent as well. The prevertebral and paravertebral soft tissues are normal. Mild emphysematous changes are seen in both upper lobes posterior segments. CT/CT thoracic spine wo con IMPRESSION: Old compression fracture T8 vertebra with cement augmentation. There are old compression fractures T7 and T9 vertebra which is stable compared to CT chest exam 07/16/2020. There is diffuse osteopenia. No acute fracture, dislocation or spinal canal stenosis.
[2021-05-21 12:07] VITALS: BP 114/74; PULSE 64; O2SAT 95
[2021-05-21 12:16] VITALS: BP 117/90; PULSE 60; RESP 16; TEMP 36.4; O2SAT 97; BMI 23.5
[2021-05-21] MEDS: Morphine Sulfate 4 MG/ML CARTRIDGE IM (13:16)
[2021-05-21] MEDS: Ondansetron ODT 4 MG TAB.RAPDIS TRANSLINGU (13:16)
--- NOTE | 2021-05-21 14:47 | ED_ITS ---
HPI - Back Pain/Injury General Chief Complaint: Back Pain/Injury Stated Complaint: CHRONIC BACK PAIN, NO TRAUMA PER EMS Time Seen by Provider: 05/21/21 12:07 Source: patient, family ( Son at bedside) and EMS Mode of arrival: EMS Limitations: no limitations History of Present Illness HPI Narrative: 75-year-old male with a past medical history of coronary artery disease, carotid artery disease, hypertension, hyperlipidemia, ischemic cardiomyopathy, left ventricular mural thrombosis, [place], PVD on warfarin who has a n ICD in place and T4 and L4/L5 fractures 2 different kyphoplasty presenting to the ED with complaints of mid back pain for the past 4 days worse today. Reports that he took some leftover tramadol that he had a home and mild to no symptomatic relief. he reports since he had the back surgery he does not suffer from back pain. Therefore he is unsure why he is having back pain. He is denying any fevers, chills, dizziness, headaches, neck pain /stiffness, chest pain or shortness of breath, dyspnea on exertion, orthopnea, palpitations, nausea/ vomiting / diarrhea, abdominal pain, constipation, black or bloody stools, urinary or bowel incontinence or retention, paresthesias, saddle anesthesia, IV drug use, recent travel or immobilization or recent surgical procedure or any other symptoms complaints or concerns at this time. MD elicited complaint: back pain Pertinent past history: prior back pain and back surgery Onset (ago): day(s) (4) Timing: constant and progressively worsening Severity: severe Pain scale (0-10): 10 Similar Symptoms Previously: Yes Quality: sharp Location: thoracic spine Radiation: none Exacerbating factors: movement Relieving factors: none Context: unknown Associated symptoms: denies other symptoms Treatments prior to arrival: other ( See above) Work related injury: No Related Data Home Medications Medication Instructions Recorded Confirmed tiotropium bromide 2.5 1 inh INHALATION BID 05/03/20 02/01/21 mcg/actuation mist for inhalation COVID-19 vacc,mRNA(Moderna)-PF 100 0.5 ml IM Q4W 11/27/20 02/01/21 mcg/0.5 mL IM susp(EUA) (Moderna COVID-19 Vaccine (PF)) Previous Rx's Medication Instructions Recorded tiotropium 2.5 mcg-olodaterol 2.5 2 puff INHALATION Q24H 90 Days #3 07/06/20 mcg/actuation mist for inhalation ea (Stiolto Respimat) tramadol 50 mg tablet 50 mg PO Q6H PRN #20 tab 07/16/20 lisinopril 10 mg tablet 10 mg PO DAILY #30 cap 11/07/20 albuterol sulfate 90 mcg/actuation 2 puff PO Q6H PRN 30 Days #8.5 g 11/22/20 aerosol inhaler calcium carbonate 600 mg calcium 600 mg PO BID 90 Days #180 tab 02/12/21 (1,500 mg) tablet ergocalciferol (vitamin D2) 50 mcg 100 mcg PO DAILY 90 Days #180 cap 02/12/21 (2,000 unit) capsule atorvastatin 80 mg tablet 80 mg PO DAILY #90 tab 03/05/21 metoprolol succinate 50 mg 50 mg PO DAILY #90 tab 04/02/21 tablet,extended release 24 hr warfarin 4 mg tablet 4 mg PO DAILY #90 tab 04/09/21 acetaminophen 500 mg tablet 1,000 mg PO QID PRN #14 tab 05/21/21 (Tylenol Extra Strength) diazepam 10 mg tablet (Valium) 10 mg PO TID PRN #10 tab 05/21/21 Allergies Allergy/AdvReac Type Severity Reaction Status Date / Time No Known Allergies Allergy Verified 05/01/21 09:46 Review of Systems Review of Systems: Constitutional : No trauma, No Weight loss, No Fever, No Chills, ENT/Mouth : No Hearing loss, No Ear Pain, No Nasal Congestion, No Sinus Pain, No Hoarseness, No sore throat, No Rhinorrhea, No Swallowing Difficulty Cardiovascular : No Chest Pain, No SOB Respiratory : No Cough, No Dyspnea Gastrointestinal : No Nausea, No Vomiting, No Diarrhea, No abdominal Pain, No Hematochezia, No Melena Genitourinary : No Dysuria, No Urinary Frequency, No Hematuria, No Urinary or Bowel Incontinence/retention Musculoskeletal : + Back pain, No neck pain, No joint stiffness, No joint swelling Skin : No Skin Lesions, No rash or signs of infection Neuro : No Weakness, No radiation, No Numbness, No Paresthesias, No headache, no loss of bowel or bladder incontinence, no saddle anesthesia, Focal weakness, No radiation Denies history of IV drug usage. Yes all other systems are reviewed and are negative PMFSH Past Medical History Attestation statement: The following information was validated with the patient. Medical History CAD (coronary artery disease) Carotid artery disease COPD (chronic obstructive pulmonary disease) HTN (hypertension) Hyperlipidemia ICD (implantable cardioverter-defibrillator) in place Ischemic cardiomyopathy LV (left ventricular) mural thrombus Old [place] (myocardial infarction) Osteoporosis PVD (peripheral vascular disease) Vitamin D deficiency Surgical History History of implantable cardioverter-defibrillator (ICD) insertion Hx of colonoscopy Hx of hemorrhoidectomy Hx of kyphoplasty Hx of vascular surgery Family History Family History Father No problems noted. Mother Diabetes Social History Social History Household Members: Children Housing: House Are you a primary pharmacist critical care to a significant other at home: No Do you presently have visiting nurse or other home services: No Alcohol intake: current Alcohol intake frequency: holidays/special occasions only Alcohol type: beer Cigarette Packs Per Day: 1 Cigarettes Per Day: 20.0 Years Smoked: 52 Second Hand Smoke Exposure: No Advance Directives: Yes Advance Directives Information Provided: No Advance Directives on File: No service: Yes Current occupational status: retired Physical Exam Vital Signs: Vital Signs: Last Vital Signs Temp 97.6 F 05/21/21 12:16 Pulse 60 05/21/21 12:16 Resp 16 05/21/21 12:16 BP 117/90 H 05/21/21 12:16 Pulse Ox 97 05/21/21 12:16 BMI result Body Mass Index 23.5 vital signs have been reviewed as normal and appeared to be correct. Blood pressure normal. Heart rate normal. Respiration rate normal. Temperature normal. Oxygen saturation normal. Appearance: Alert. Oriented X3. No acute distress. Head: Normal external exam. Normocephalic. Atraumatic. Eyes: PERRLA. EOMI. Conjunctiva and sclera normal. Eyelids normal. ENT: Pharynx normal. Uvula midline. Moist mucous membranes. Neck: Normal inspection. Neck supple. FROM. No adenopathy. No meningeal signs. No neck mass noted. CVS: Normal heart rate and rhythm. Heart sound normal. No murmurs noted. Pulses normal throughout. Respiratory: No respiratory distress. Painless inspiration. Breath sounds normal. No wheezes/rales/rhonchi noted. Chest nontender. No accessory muscle usage noted or decreased air movement noted. Abdomen: Soft and nontender. Bowel sounds normal in all 4 quadrants. No distention noted. No organomegaly noted. No visible injury noted. Back: No CVA tenderness. Full range of motion noted. No obvious deformities, or edema. Mild para-spinal muscular tenderness from lumbar region to coccyx. Full ROM in back and lower extremities. 5/5 strength hip extension/flexion, abduction, adduction. Mild thoracic pain with palpation. Straight leg raise test negative on right; Straight leg raise test negative on left; Reflexes normal ankle and knee bilaterally; EHL motor strength normal bilaterally. No rashes/lesion/induration/fluctuance or signs infection noted. Skin: Skin warm and dry. Normal skin color. Normal skin turgor. No rashes/lesions/lacerations noted. Extremities: No lower extremity edema. No calf tenderness. Extremities exhibit normal range of motion. Extremities nontender. Neuro: Oriented X 3. No motor deficit. No sensory deficit. Reflexes normal. Patient has a normal steady gait with cane Course Course Course Narrative: 13pm - Pt c likely muscular pain, but could be herniated disc. Neuro exam shows no deficits. Not c/w AAA/epidural abscess/dissection.Not cauda equina syndrome. No high risk Hx (Incont, fever, immunosupp, recent surgery/LP, coag, signif trauma, wt loss, puls mass, hx/o Ca, TB, or IVDU) to warrant MRI. Not c/w Pyelo/UTI/kidney stone. although due to patient's history of multiple spinal fractures will obtain a CT scan of thoracic spine to evaluate for any possible s lorraine fractures provide 4 mg of IM morphine then re-evaluate. Reevaluation(s) Reevaluation #1: - Labs reviewed and patient with a platelet count of 126 he has intermittent episodes of low platelet counts. Sodium of 130. Chloride 95. Anion gap 11. Total bilirubin 1.8. Total protein 6.3. Otherwise all other labs are within normal limits. - CT scan of thoracic spine revealed old compression fractures T8 with cement augmentation there was also noted to be old compression fractures T7 and T9 vertebrae which is stable compared to CT chest exam on 07/16/2020. - Therefore I printed out the results and handed to the patient as he was not aware of these T7 and T9 vertebrae - Otherwise I explained to the patient that I will give him a L of IV fluids and I would discharge him with Valium and he is agreeable to this and instructions to follow-up with his primary care provider as scheduled and to return if any new or worsening symptoms as patient declined physical therapy or short-term rehab reports that his son his daughter can take Time: 15:55 [facility] - Back Pain/Injury Medical Records Attestation: I reviewed the patient's medical records. Lab Data Attestation: I reviewed the patient's lab results. Result diagrams: 05/21/21 15:02 05/21/21 15:02 Labs: Lab Results 05/21/21 05/21/21 05/21/21 Range/Units 15:02 15:02 16:16 WBC 6.2 (4.8-10.8) X10*3/uL RBC 4.54 L (4.60-5.80) X10*6/uL Hgb 14.3 (14.0-18.0) g/dl Hct 41.8 L (42.0-52.0) % MCV 92.1 (80.0-98.0) fL MCH 31.5 (27.0-33.0) pg MCHC 34.2 (31.0-36.0) g/dl RDW 14.3 (11.0-16.0) % Plt Count 126 L (160-400) X10*3/uL MPV 9.2 L (9.4-12.4) fL Immature Gran % (Auto) 0.3 (0.0-0.4) % Neut % (Auto) 65.9 (45-73) % Lymph % (Auto) 21.8 (20-40) % [place] % (Auto) 10.0 (2-11) % Eos % (Auto) 1.5 (0-4) % Baso % (Auto) 0.5 (0-2) % Lymph # (Auto) 1.4 (1.2-4.9) X10*3/uL [place] # (Auto) 0.6 (0.1-1.2) X10*3/uL Eos # (Auto) 0.1 (0.0-0.4) X10*3/uL Baso # (Auto) 0.0 (0.0-0.2) X10*3/uL Abs Immat Gran (auto) 0.02 (0.00-0.03) X10*3/uL Absolute Neuts (auto) 4.1 (2.0-8.3) x10*3/uL Absolute Nucleated RBC 0.000 (0.0-0.012) X10*3/uL Nucleated RBC % (auto) 0.0 (0.0-0.2) /100WBC Smear Tech's Comments VERIFIED PT 34.9 H (9.9-13.0) SEC INR 3.0 H (0.9-1.1) Sodium 130 L (135-145) mmol/L Potassium 4.0 (3.3-5.1) mmol/L Chloride 95 L (96-108) mmol/L Carbon Dioxide 28 (22-29) mmol/L Anion Gap 11 L (12-20) BUN 16 (9-16) mg/dL Creatinine 0.80 (0.5-1.4) mg/dL Estim Creat Clear Calc 75.7 Estimated GFR > 60 Random Glucose 86 (60-115) mg/dL Calcium 9.4 D (8.4-10.2) mg/dL Total Bilirubin 1.8 H (0.0-1.0) mg/dL AST 28 (5-37) U/L ALT 20 (0-40) U/L Alkaline Phosphatase 115 (39-117) U/L Total Protein 6.3 L (6.5-8.0) g/dL Albumin 4.1 (3.5-5.0) g/dL Imaging Data CT scan of thoracic spine without contrast: Attestation: I personally reviewed and interpreted this imaging study as follows: Radiologist's impression: FINDINGS: On sagittal reconstructed images there is normal thoracic kyphosis. There is previous T8 compression fracture with cement augmentation changes. There is mild loss of T7 and T8-T9 vertebral height similar to previous CT chest exam 07/16/2020. Rest of the vertebral heights and alignment is normal. There is mild osteopenia. No visible fracture, dislocation or bony abnormality seen. The spinal canal is capacious throughout the thoracic spine. The neural foramina are patent as well. The prevertebral and paravertebral soft tissues are normal. Mild emphysematous changes are seen in both upper lobes posterior segments. CT/CT thoracic spine wo con IMPRESSION: Old compression fracture T8 vertebra with cement augmentation. There are old compression fractures T7 and T9 vertebra which is stable compared to CT chest exam 07/16/2020. ? There is diffuse osteopenia. No acute fracture, dislocation or spinal canal stenosis. Discharge Plan Discharge Clinical Impression: Acute hyponatremia, Fracture of thoracic spine Patient Disposition: Home, Self-Care Instructions: Vertebral Compression Fracture (ED), Hyponatremia (ED) Prescriptions: New diazepam [Valium] 10 mg tablet 10 mg PO TID PRN (Reason: muscle spasm) Qty: 10 RF: 0 acetaminophen [Tylenol Extra Strength] 500 mg tablet 1,000 mg PO QID PRN (Reason: fever or pain) Qty: 14 RF: 0 No Action lisinopril 10 mg tablet 10 mg PO DAILY Qty: 30 RF: 5 albuterol sulfate 90 mcg/actuation HFA aerosol inhaler 2 puff PO Q6H PRN (Reason: Shortness Of Breath Or Wheezing) 30 Days Qty: 8.5 RF: 2 calcium carbonate 600 mg calcium (1,500 mg) tablet 600 mg PO BID 90 Days Qty: 180 RF: 0 ergocalciferol (vitamin D2) 50 mcg (2,000 unit) capsule 100 mcg PO DAILY 90 Days Qty: 180 RF: 0 atorvastatin 80 mg tablet 80 mg PO DAILY Qty: 90 RF: 2 metoprolol succinate 50 mg tablet extended release 24 hr 50 mg PO DAILY Qty: 90 RF: 3 warfarin 4 mg tablet 4 mg PO DAILY Qty: 90 RF: 1 Hold Instructions: Resume on 06/12/20. Follow-up with thoracic surgery on Friday 09:00, Dr Rick's office and further use of Coumadin as per thoracic surgery. tramadol 50 mg tablet 50 mg PO Q6H PRN (Reason: pain) Qty: 20 RF: 0 Stiolto Respimat 2.5-2.5 mcg/actuation mist 2 puff inhalation Q24H 90 Days Qty: 3 RF: 6 tiotropium bromide 2.5 mcg/actuation mist 1 inh inhalation BID RF: 0 Moderna COVID-19 Vaccine (EUA) 100 mcg/0.5 mL suspension 0.5 ml IM Q4W RF: 0 Referrals: Jesus Langford FNP-BC [Primary Care Provider] - 2 days Print Language: Bhutanese
[2021-05-21 15:12] LABS: Basophils Percent Auto 0.5 % (0-2); Imm Gran Abs Auto 0.02 X10*3/uL (0.00-0.03); Imm Gran Pct Auto 0.3 % (0.0-0.4); MANUAL DIFF FLAG SCAN; Mean Corpuscular Volume 92.1 fL (80.0-98.0); PLT CLUMP 1; SCAN SMEAR FLAG 1
[2021-05-21 15:14] LABS: Eosinophils Absolute Auto 0.1 X10*3/uL (0.0-0.4); Eosinophils Percent Auto 1.5 % (0-4); Hematocrit 41.8 % (42.0-52.0); Hemoglobin 14.3 g/dl (14.0-18.0); Lymphocytes Absolute Auto 1.4 X10*3/uL (1.2-4.9); Lymphocytes Percent Auto 21.8 % (20-40); Mean Corpuscular HGB Conc 34.2 g/dl (31.0-36.0); Mean Corpuscular Hemoglobin 31.5 pg (27.0-33.0); Mean Platelet Volume 9.2 fL (9.4-12.4); Monocytes Absolute Auto 0.6 X10*3/uL (0.1-1.2); Neutrophils Absolute Auto 4.1 x10*3/uL (2.0-8.3); Neutrophils Percent Auto 65.9 % (45-73); Platelet Count 126 X10*3/uL (160-400); Red Blood Count 4.54 X10*6/uL (4.60-5.80); Red Cell Distribution Width 14.3 % (11.0-16.0); White Blood Count 6.2 X10*3/uL (4.8-10.8)
[2021-05-21 15:31] LABS: Alanine Aminotransferase 20 U/L (0-40); Albumin Level 4.1 g/dL (3.5-5.0); Alkaline Phosphatase 115 U/L (39-117); Anion Gap 11 (12-20); Aspartate Amino Transferase 28 U/L (5-37); Bilirubin Total 1.8 mg/dL (0.0-1.0); Blood Urea Nitrogen 16 mg/dL (9-16); Calcium 9.4 mg/dL (8.4-10.2); Carbon Dioxide 28 mmol/L (22-29); Chloride 95 mmol/L (96-108); Creatinine Clr Calc Pharmacy 75.7; Estimated Glomerular Filt Rate > 60; Glucose Random 86 mg/dL (60-115); Sodium 130 mmol/L (135-145); Total Protein 6.3 g/dL (6.5-8.0)
[2021-05-21 16:11] LABS: SLIDE REVIEW VERIFIED
[2021-05-21] MEDS: 0.9 % Sodium Chloride 1,000 ML 999 ML IVCONT (16:23)
[2021-05-21] MEDS: diazePAM 5 MG TABLET 10 MG PO (16:23)
[2021-05-21 16:48] LABS: Prothrombin Time 34.9 SEC (9.9-13.0)
[2021-05-21 17:20] VITALS: BP 112/78; PULSE 63; O2SAT 90
== END 2021-05-21 17:30 | disposition home or self-care (01) ==
PROVIDERS: Physician Assistant Medical; Emergency Provider Emergency Medicine; PCP Nurse Practitioner Family
DX: E87.1 Hypo-osmolality and hyponatremia (principal); M54.9 Dorsalgia, unspecified; S22.060D Wedge compression fracture of T7-T8 vertebra, subsequent encounter for fracture with routine healing; S22.070D Wedge compression fracture of T9-T10 vertebra, subsequent encounter for fracture with routine healing; X58.XXXD Exposure to other specified factors, subsequent encounter; I10 Essential (primary) hypertension; E78.5 Hyperlipidemia, unspecified; I25.2 Old myocardial infarction; F17.200 Nicotine dependence, unspecified, uncomplicated; Z79.01 Long term (current) use of anticoagulants
CPT/HCPCS: 36415; 72128; 80053; 85025; 85610; 96360; 96372; 99284; J2270

== ENCOUNTER 2021-07-03 10:32 | Outpatient (REF) | payer MEDICARE, OTHER, SELFPAY ==
--- NOTE | ~2021-07-03 | CT_ITS ---
EXAMINATION: CT CHEST SCREENING CLINICAL INFORMATION: Nicotine dependence. Smoker of 1 pack per day for 53 years. COMPARISON: 07/16/2020 TECHNIQUE: Multidetector volumetric CT imaging of the chest is performed without contrast using low dose technique. Additional 2D coronal and sagittal reformatted images and axial 3D maximum intensity projection (MIP) images are generated on the CT workstation. This CT examination was performed using dose optimization techniques as appropriate, variously including the following: *Automated exposure control *Adjustment of mA and/or kV according to patient size (this includes techniques or standardized protocols for targeted exams where dose is matched to indication/reason for exam; i.e. extremities or head) *Use of iterative reconstruction technique DLP: 51 mGy-cm FINDINGS: LUNGS: The lungs are well expanded and clear of acute pneumonic process. There is 5 mm linear nodule right upper lobe, axial image 232/6, a focal 9 mm nodule or density right middle lobe adjacent to the right pericardium and minor fissure axial image 312/6. No additional nodules seen. Triangular opacity right anterolateral lower lobe adjacent pleura is stable, likely focal pleural thickening. MEDIASTINUM: The thyroid lobes are symmetric and normal. The central trachea and the bronchi are widely patent. There are coronary artery calcifications. No pericardial effusion seen. Pacer electrode is visualized in right ventricle. No abnormal-sized mediastinal or hilar lymph nodes. PLEURA: There is no pleural effusion. No pleural mass or thickening. AXILLA: No lymphadenopathy. UPPER ABDOMEN: Visualized liver, spleen, pancreas and bilateral adrenal glands are unremarkable. There is hypodense sludge in the gallbladder. OSSEOUS STRUCTURES: There is an old compression deformity T8 vertebra with cement augmentation. Also visualized is an old T7 compression fracture. There is a new acute compression fracture at the T9 vertebra with loss of 50% vertebral height. CT/CT lung screening IMPRESSION: A 5 mm nodule right middle lobe adjacent to the minor fissure. Previously measured 7 mm. A 5 mm nodule right upper lobe is slightly more prominent than the last exam. Previously it measured 3 mm. Old compression fracture T8 vertebra with augmentation and old T7 compression fracture. ASSESSMENT: Lung-RADS category 2: Benign. SIGNIFICANT OTHER: T9 compression fracture. Recommend kyphoplasty if patient has significant pain. RECOMMENDATION: Low-dose annual CT chest.
== END 2021-07-03 10:33 | disposition home or self-care (01) ==
LOC: HO.CT 10:32
PROVIDERS: PCP Nurse Practitioner Family; Visit Provider Physician Assistant Medical
DX: I24.0 Acute coronary thrombosis not resulting in myocardial infarction (principal); F17.210 Nicotine dependence, cigarettes, uncomplicated; Z51.81 Encounter for therapeutic drug level monitoring; Z79.01 Long term (current) use of anticoagulants
CPT/HCPCS: 71271; 85610; 99211

== ENCOUNTER → 2021-08-07 09:12 | Outpatient (BNVA) | payer MEDICARE, OTHER, SELFPAY | PROVIDERS: PCP Nurse Practitioner Family; Visit Provider Internal Medicine | DX: I51.3 Intracardiac thrombosis, not elsewhere classified (principal); I50.20 Unspecified systolic (congestive) heart failure; F17.210 Nicotine dependence, cigarettes, uncomplicated; I25.10 Atherosclerotic heart disease of native coronary artery without angina pectoris; Z45.018 Encounter for adjustment and management of other part of cardiac pacemaker; Z95.810 Presence of automatic (implantable) cardiac defibrillator; Z79.899 Other long term (current) drug therapy; Z51.81 Encounter for therapeutic drug level monitoring; Z79.01 Long term (current) use of anticoagulants | CPT/HCPCS: 85610; 99211; 99212 ==

== ENCOUNTER → 2021-09-11 09:33 | Outpatient (BNVA) | payer MEDICARE, OTHER, SELFPAY | PROVIDERS: PCP Nurse Practitioner Family; Visit Provider Internal Medicine | DX: I51.3 Intracardiac thrombosis, not elsewhere classified (principal); Z51.81 Encounter for therapeutic drug level monitoring; Z79.01 Long term (current) use of anticoagulants | CPT/HCPCS: 85610; 99211 ==

== ENCOUNTER → 2021-10-09 09:48 | Outpatient (BNVA) | payer MEDICARE, OTHER, SELFPAY | PROVIDERS: PCP Nurse Practitioner Family; Visit Provider Internal Medicine | DX: I51.3 Intracardiac thrombosis, not elsewhere classified (principal); Z79.01 Long term (current) use of anticoagulants; Z51.81 Encounter for therapeutic drug level monitoring | CPT/HCPCS: 85610; 99211 ==

== ENCOUNTER → 2021-10-23 09:44 | Outpatient (BNVA) | payer MEDICARE, OTHER, SELFPAY | PROVIDERS: PCP Nurse Practitioner Family; Visit Provider Internal Medicine | DX: I51.3 Intracardiac thrombosis, not elsewhere classified (principal); Z79.01 Long term (current) use of anticoagulants; Z51.81 Encounter for therapeutic drug level monitoring | CPT/HCPCS: 85610; 99211 ==

== ENCOUNTER → 2021-11-20 09:44 | Outpatient (BNVA) | payer MEDICARE, OTHER, SELFPAY | PROVIDERS: PCP Nurse Practitioner Family; Visit Provider Internal Medicine | DX: I51.3 Intracardiac thrombosis, not elsewhere classified (principal); Z79.01 Long term (current) use of anticoagulants; Z51.81 Encounter for therapeutic drug level monitoring | CPT/HCPCS: 85610; 99211 ==

== ENCOUNTER → 2022-01-11 09:42 | Outpatient (BNVA) | payer MEDICARE, OTHER, SELFPAY | PROVIDERS: PCP Nurse Practitioner Family; Visit Provider Internal Medicine | DX: I51.3 Intracardiac thrombosis, not elsewhere classified (principal); Z79.01 Long term (current) use of anticoagulants; Z51.81 Encounter for therapeutic drug level monitoring | CPT/HCPCS: 85610; 99211 ==

== ENCOUNTER → 2022-01-29 10:19 | Outpatient (BNVA) | payer MEDICARE, OTHER, SELFPAY | PROVIDERS: PCP Nurse Practitioner Family; Referring Provider Nurse Practitioner Family; Visit Provider Internal Medicine Cardiovascular Disease | DX: Z45.02 Encounter for adjustment and management of automatic implantable cardiac defibrillator (principal); I50.20 Unspecified systolic (congestive) heart failure; I25.10 Atherosclerotic heart disease of native coronary artery without angina pectoris | CPT/HCPCS: 93005; 99212 ==

== ENCOUNTER → 2022-02-07 09:32 | Outpatient (BNVA) | payer MEDICARE, OTHER, SELFPAY | PROVIDERS: PCP Nurse Practitioner Family; Visit Provider Internal Medicine | DX: I51.3 Intracardiac thrombosis, not elsewhere classified (principal); Z51.81 Encounter for therapeutic drug level monitoring; Z79.01 Long term (current) use of anticoagulants | CPT/HCPCS: 85610; 99211 ==

== ENCOUNTER → 2022-03-06 09:29 | Outpatient (BNVA) | payer MEDICARE, OTHER, SELFPAY | PROVIDERS: PCP Nurse Practitioner Family; Visit Provider Internal Medicine | DX: I51.3 Intracardiac thrombosis, not elsewhere classified (principal); Z79.01 Long term (current) use of anticoagulants; Z51.81 Encounter for therapeutic drug level monitoring | CPT/HCPCS: 85610; 99211 ==

== ENCOUNTER → 2022-03-27 09:18 | Outpatient (BNVA) | payer MEDICARE, OTHER, SELFPAY | PROVIDERS: PCP Nurse Practitioner Family; Visit Provider Internal Medicine | DX: I51.3 Intracardiac thrombosis, not elsewhere classified (principal); Z79.01 Long term (current) use of anticoagulants; Z51.81 Encounter for therapeutic drug level monitoring | CPT/HCPCS: 85610; 99211 ==

== ENCOUNTER → 2022-04-10 09:28 | Outpatient (BNVA) | payer MEDICARE, OTHER, SELFPAY | PROVIDERS: PCP Nurse Practitioner Family; Visit Provider Internal Medicine | DX: I51.3 Intracardiac thrombosis, not elsewhere classified (principal); Z79.01 Long term (current) use of anticoagulants; Z51.81 Encounter for therapeutic drug level monitoring | CPT/HCPCS: 85610; 99211 ==

== ENCOUNTER → 2022-05-16 09:20 | Outpatient (BNVA) | payer MEDICARE, OTHER, SELFPAY | PROVIDERS: PCP Nurse Practitioner Family; Visit Provider Internal Medicine | DX: I51.3 Intracardiac thrombosis, not elsewhere classified (principal); Z79.01 Long term (current) use of anticoagulants; Z51.81 Encounter for therapeutic drug level monitoring | CPT/HCPCS: 85610; 99211 ==

== ENCOUNTER → 2022-05-30 09:41 | Outpatient (BNVA) | payer MEDICARE, OTHER, SELFPAY | PROVIDERS: PCP Nurse Practitioner Family; Visit Provider Internal Medicine | DX: I51.3 Intracardiac thrombosis, not elsewhere classified (principal); Z79.01 Long term (current) use of anticoagulants; Z51.81 Encounter for therapeutic drug level monitoring | CPT/HCPCS: 85610; 99211 ==

== ENCOUNTER → 2022-06-13 09:51 | Outpatient (BNVA) | payer MEDICARE, OTHER, SELFPAY | PROVIDERS: PCP Nurse Practitioner Family; Visit Provider Internal Medicine | DX: I51.3 Intracardiac thrombosis, not elsewhere classified (principal); Z79.01 Long term (current) use of anticoagulants; Z51.81 Encounter for therapeutic drug level monitoring | CPT/HCPCS: 85610; 99211 ==

== ENCOUNTER 2022-07-04 09:29 | Outpatient (REF) | payer MEDICARE, OTHER, SELFPAY ==
--- NOTE | ~2022-07-04 | CT_ITS ---
EXAMINATION: CT CHEST SCREENING CLINICAL INFORMATION: Current smoker. Nicotine dependence. COMPARISON: Multiple priors, most recently 07/03/2021 TECHNIQUE: Multidetector volumetric CT imaging of the chest is performed without contrast using low dose technique. Additional 2D coronal and sagittal reformatted images and axial 3D maximum intensity projection (MIP) images are generated on the CT workstation. This CT examination was performed using dose optimization techniques as appropriate, variously including the following: *Automated exposure control *Adjustment of mA and/or kV according to patient size (this includes techniques or standardized protocols for targeted exams where dose is matched to indication/reason for exam; i.e. extremities or head) *Use of iterative reconstruction technique DLP: 41 mGy-cm FINDINGS: LUNGS: The central airways are patent. There is severe paraseptal and centrilobular emphysema with panlobular appearance in the upper lobes. No dense consolidation. Eventration of the diaphragm posteriorly bilaterally. No pneumothorax. Scattered bronchial filling defects are noted. Pulmonary nodules again noted. 1. There is a subpleural right upper lobe 1.1 x 0.5 cm nodule on series 5 image 214. This is essentially new from prior. There was a small nodule seen in this area more inferiorly previously, which is no longer separately visualized. 2. Right middle lobe 1 x 0.7 cm nodule on series 5 image 313. This is increased from prior, measuring 0.9 x 0.6 cm on prior. MEDIASTINUM: Normal heart size. No pericardial effusion. No mediastinal lymphadenopathy. Left chest wall pacer with lead over the right ventricle. CORONARY ARTERY CALCIFICATION: Severe. PLEURA: No pleural effusion. AXILLA: No lymphadenopathy. UPPER ABDOMEN: Calcification associated with the left kidney is likely vascular. No acute findings in the visualized upper abdomen. OSSEOUS STRUCTURES: Degenerative changes in the spine. Thoracic compression deformities are again noted, unchanged. Kyphoplasty at T8. CT/CT lung screening IMPRESSION: 1. Severe emphysema. Multiple pulmonary nodules are again noted. There is a new subpleural right upper lobe nodule measuring 1.1 x 0.5 cm (mean size of 0.8 cm). 2. Right middle lobe nodule measures 1 x 0.7 cm, increased from prior. ASSESSMENT: Lung-RADS category 4B: Suspicious RECOMMENDATION: Chest CT with or without contrast, PET/CT and/or tissue sampling depending on probability of malignancy and comorbidities. A one-month low-dose chest CT could alternatively performed to exclude infectious/inflammatory process.
== END 2022-07-04 09:30 | disposition home or self-care (01) ==
LOC: HO.CT 09:29
PROVIDERS: PCP Nurse Practitioner Family; Visit Provider Physician Assistant Medical
DX: Z12.2 Encounter for screening for malignant neoplasm of respiratory organs (principal); F17.210 Nicotine dependence, cigarettes, uncomplicated
CPT/HCPCS: 71271

== ENCOUNTER → 2022-07-08 09:36 | Outpatient (REF) | payer MEDICARE, OTHER, SELFPAY ==
--- NOTE | 2022-07-08 09:38 | CA_ITS ---
Transthoracic Echocardiogram Patient (Last, First, Middle): Michael Tucker O Gender: Male Date of : 1945 Age: 76 Procedure Date: 07/08/2022 Procedure Type: Transthoracic Echocardiogram Location: OP Height: 165.1 cm Weight: 59.88 kg BSA: 1.66 m2 Heart Rate: 50 bpm BP: 140 / 80 mmHg [employer] Operator: MARCOS Referring MD: Asif Cooper MD Symptoms: I25.5 - Ischemic cardiomyopathy Study Quality: Poor/Contrast ECG Rhythm: Bradycardia Conclusions: - The left ventricular systolic function is moderately decreased. The visually estimated ejection fraction is between 30-35%. - The apex, apical lateral, apical septum, mid inferoseptal, and mid anteroseptal segments are akinetic. - No obvious valvular pathology seen on this study. Findings Procedure Information Contrast agent, definity, is being given per protocol without apparent complications. Left Ventricle Normal left ventricular cavity size. There is normal left ventricular wall thickness. The left ventricular systolic function is moderately decreased. The visually estimated ejection fraction is between 30-35%. Diastolic function is normal for age. Wall Motion Rest Echo Findings The apex, apical lateral, apical septum, mid inferoseptal, and mid anteroseptal segments are akinetic. Right Ventricle Normal right ventricular cavity size and systolic function. There is an ICD wire seen in the right ventricle. Atria Both atria are normal in size. Aortic Valve The aortic valve was not well visualized. There is no aortic valve stenosis. There is no aortic valve regurgitation. Mitral Valve The mitral valve appears normal. There is no mitral valve regurgitation. There is no mitral valve stenosis. Pulmonic Valve The pulmonic valve is likely normal. Tricuspid Valve There is trace tricuspid valve regurgitation. There is no evidence of pulmonary hypertension. Great Vessels The asc aorta is normal in size. Venous The inferior vena cava is normal in size and collapses greater than 50% with inspiration. Pericardium/Pleural There is no evidence of pericardial effusion. Prior Study Comparison No significant change compared to prior study dated: 05/02/2021. Recommendations, Care & Conclusions No obvious valvular pathology seen on this study. Measurements 2D Linear Measurements IVSd: 0.83 0.6-0.9/0.6-1.0 cm LVIDd: 4.15 3.9-5.3/4.2-5.9 cm LVIDd Index: 2.50 2.4-3.2/2.2-3.1 cm/m2 LVIDs: 2.89 2.0-3.6 cm LVPWd: 0.99 0.7-1.1 cm LA Diam: 3.00 2.7-3.8/3.0-4.0 cm LAIDs Index: 1.81 1.5-2.3 cm/m2 LV Mass: 146.84 67-162/88-224 g LV Mass Index: 88.46 43-95/49-115 g/m2 LVOT Diam: 2.20 3.0+(-)1.3 cm 2D Systolic Function EF 4C: 55.10 >55% EF 2C: 48.90 >55% Mitral Valve MV Pk E: 0.68 MV PK A: 0.84 MV Decel Time: 155.00 E/A: 0.80 E'Lateral: 5.76 E'Medial: 5.59 E/E' Med: 12.20 E/E' Lat: 11.80 PHT: 45.00 MVA PHT: 4.89 Decel [place]: 4.40 Aortic Valve AoV Pk Cleve: 1.13 AoV Mn Cleve: 0.68 AoV VTI: 0.29 AoV Pk Grad: 5.00 Aov Mn Grad: 2.00 MARIBEL Cont.VTI: 2.06 LVOT LVOT Pk Cleve: 0.56 LVOT Mn Cleve: 0.40 LVOT VTI: 0.16 LVOT Pk Grad: 1.00 LVOT Mn Grad: 1.00 LVOT Diam: 2.20 LVOT Area: 3.80 Diastolic Function MV Pk E: 0.68 MV Pk A: 0.84 E/A: 0.80 E'Medial: 5.59 E/E' Med: 12.20 E' Laterial: 5.76 E/E' Lat: 11.80 Right Ventricle TAPSE (mm): 22.60 Tricuspid Valve TR Pk Cleve: 2.25 TR Pk Grad: 20.00 RA Press: 3.00 RVSP: 23.00 Great Vessels Aorta Sinus of Valsalva: 3.80 2.0-3.5 cm Ao Asc: 3.10 2.1-3.4 cm Pulmonary Valve PV Pk Cleve: 0.57 Peak PV Grad: 1.00 Updated in Other Vendor System with Status of Final Behzad Carver MD electronically signed on 07/09/2022 11:59:15 AM with status of Final
== END ==
LOC: HO.CARD 09:36
PROVIDERS: PCP Nurse Practitioner Family; Visit Provider Internal Medicine Cardiovascular Disease
DX: I25.5 Ischemic cardiomyopathy (principal)
CPT/HCPCS: 85610; 93306; 99211; Q9957

== ENCOUNTER 2022-07-30 09:52 | Outpatient (REF) | payer MEDICARE, OTHER, SELFPAY ==
--- NOTE | ~2022-07-30 | PE_ITS ---
EXAMINATION: WHOLE BODY PET/CT IMAGING CLINICAL INFORMATION: Solitary pulmonary nodularity. TECHNIQUE: 18 mCi F-18 deoxyglucose. Dedicated coincidence imaging from the base of the skull to the thighs. COMPARISON: Comparison is made to diagnostic CT chest dated 07/04/2022. FINDINGS: The partially visualized brain activity is within normal limits. The neck activity is felt to be unremarkable. Mild activity within the thyroid. In the chest, there is no suspicious mediastinal or hilar activity. RIGHT LUNG: There is uptake in both the lesions described on most recent CT of the chest. In the right upper lobe lateral pleural-based lesion, uptake is 5.4 SUV max. Suspicious for tumor. In the right midlung anterior lesion, there is also uptake at 4.1 SUV max. This would also be suspicious for tumor. Otherwise, uptake in the lungs is felt to be within normal limits. In the abdomen/pelvis there is normal low-level uptake within the liver and spleen. Normal renal activity. Normal bowel activity. Normal bladder activity. In the bones, no suspicious focus. There is a soft tissue focus in the region of the glenohumeral joint on the right of uncertain etiology. There is some increased fullness here. Etiology is indeterminate. Uptake is 3.7 SUV max. PET/PET CT fusion skull to thigh IMPRESSION: Abnormal uptake in both the right lung lesions described on recent diagnostic CT chest. Suspicious for tumor. The examination is otherwise unremarkable with the exception of the right shoulder. Some uptake within soft tissue in the anterior glenohumeral articulation of uncertain etiology. This could be degenerative in nature. Small metastatic deposit cannot be completely excluded given the mild soft tissue fullness. Consider MR to fully evaluate otherwise attention to followup.
== END 2022-07-30 09:53 | disposition home or self-care (01) ==
LOC: HO.PET 09:52
PROVIDERS: PCP Nurse Practitioner Family; Visit Provider Surgery
DX: Z13.89 Encounter for screening for other disorder (principal)

== ENCOUNTER 2022-08-01 08:50 | Outpatient (REF) | payer MEDICARE, OTHER, SELFPAY ==
--- NOTE | 2022-08-01 10:15 | PFT_ITS ---
SPIROMETRY: FEV1 to FVC 32% with an FEV1 of 0.9 L, which is 38% predicted and FVC of 2.76 L, which is 83% predicted. Post bronchodilator there is a significant improvement in FEV1 by 23%. The maximum voluntary ventilation is 23% of predicted. LUNG VOLUMES: Total lung capacity 100% predicted with residual volume of 136% of predicted. DIFFUSION CAPACITY: DLCO of 18% of predicted. COMPARISONS: None. INTERPRETATION: There is an obstructive ventilatory defect consistent with severe COPD. There was a significant response to bronchodilator was noted. There is also a severe decrease in the maximum voluntary ventilation secondary to likely deconditioning and also worsening dynamic inspiratory capacity. Lung volumes with significant air trapping due to the COPD and the patient has a very severe diffusion impairment secondary to likely extensive parenchymal lung conditions and emphysema. Pulmonary vascular congestion should be considered and should also correct for hemoglobin. The patient will be high risk for any potential surgical interventions. MD EDUAR Silva/ANDREINA / [id number]
== END 2022-08-01 08:51 | disposition home or self-care (01) ==
LOC: HO.RESP 08:50
PROVIDERS: PCP Nurse Practitioner Family; Visit Provider Surgery
DX: R91.1 Solitary pulmonary nodule (principal); F17.210 Nicotine dependence, cigarettes, uncomplicated
CPT/HCPCS: 94060; 94727; 94729

== ENCOUNTER → 2022-08-08 09:00 | Outpatient (BNVA) | payer MEDICARE, OTHER, SELFPAY | PROVIDERS: PCP Nurse Practitioner Family; Visit Provider Internal Medicine | DX: Z45.02 Encounter for adjustment and management of automatic implantable cardiac defibrillator (principal); I25.10 Atherosclerotic heart disease of native coronary artery without angina pectoris; I25.5 Ischemic cardiomyopathy; I51.3 Intracardiac thrombosis, not elsewhere classified; Z79.01 Long term (current) use of anticoagulants; Z51.81 Encounter for therapeutic drug level monitoring | CPT/HCPCS: 85610; 99211; 99212 ==

== ENCOUNTER → 2022-08-16 09:03 | Outpatient (BNVA) | payer MEDICARE, OTHER, SELFPAY | PROVIDERS: PCP Nurse Practitioner Family; Visit Provider Surgery | DX: I51.3 Intracardiac thrombosis, not elsewhere classified (principal); R91.1 Solitary pulmonary nodule; J44.9 Chronic obstructive pulmonary disease, unspecified; I25.10 Atherosclerotic heart disease of native coronary artery without angina pectoris; I50.20 Unspecified systolic (congestive) heart failure; F17.210 Nicotine dependence, cigarettes, uncomplicated; Z79.01 Long term (current) use of anticoagulants; Z51.81 Encounter for therapeutic drug level monitoring | CPT/HCPCS: 85610; 99202; 99211 ==

== ENCOUNTER → 2022-09-12 13:10 | Outpatient (BNVA) | payer MEDICARE, OTHER, SELFPAY | PROVIDERS: PCP Nurse Practitioner Family; Visit Provider Internal Medicine Pulmonary Disease | DX: J44.9 Chronic obstructive pulmonary disease, unspecified (principal); R91.1 Solitary pulmonary nodule | CPT/HCPCS: 99212 ==

== ENCOUNTER 2022-09-13 10:36 | Outpatient (RCR) | payer MEDICARE, OTHER, SELFPAY ==
--- NOTE | 2022-09-13 10:40 | HE.ONCSEC ---
Pt's daughter called to cancel appt. Pt fell last night and is sore. Pt's daughter indicated she would call back to r/s once her father was feeling better.
== END 2023-05-07 | disposition home or self-care (01) ==
LOC: HO.ONC 10:36
PROVIDERS: Visit Provider Internal Medicine Medical Oncology
DX: R91.1 Solitary pulmonary nodule (principal)

== ENCOUNTER 2022-10-10 13:29 | Emergency (ER) | payer MEDICARE, OTHER, SELFPAY ==
--- NOTE | ~2022-10-10 | XR_ITS ---
Indication: Fall with a history of kyphoplasty EXAMINATION: Thoracic spine and lumbar sacral spine. 3 views of the thoracic spine are compared to sagittal imaging from CT dated 07/04/2022. Also PET/CT imaging dated 07/30/2022 Kyphoplasty in the mid thoracic region. Some compression injury above and below this similar to previous. There does appear to be new compression at D12. Mid to anterior loss of height. 3 views of the lumbar sacral spine once again demonstrate compression at T12. Kyphoplasty at L5 L4. Appearance similar to PET/CT. Some loss of mid to anterior height at L3 similar to CT. XR/XR thoracic spine 3V IMPRESSION: I believe this exam does does demonstrate new compression at D12. Otherwise areas of chronic compression and kyphoplasty
--- NOTE | ~2022-10-10 | XR_ITS ---
Indication: Fall with a history of kyphoplasty EXAMINATION: Thoracic spine and lumbar sacral spine. 3 views of the thoracic spine are compared to sagittal imaging from CT dated 07/04/2022. Also PET/CT imaging dated 07/30/2022 Kyphoplasty in the mid thoracic region. Some compression injury above and below this similar to previous. There does appear to be new compression at D12. Mid to anterior loss of height. 3 views of the lumbar sacral spine once again demonstrate compression at T12. Kyphoplasty at L5 L4. Appearance similar to PET/CT. Some loss of mid to anterior height at L3 similar to CT. XR/XR lumbar spine 2-3V IMPRESSION: I believe this exam does does demonstrate new compression at D12. Otherwise areas of chronic compression and kyphoplasty
[2022-10-10 13:36] VITALS: BP 120/74; PULSE 88; O2SAT 100
--- NOTE | 2022-10-10 13:42 | ED.BACK ---
HPI - Back Pain/Injury General Chief Complaint: Back Pain/Injury <ORI Ruff - Last Filed: 10/10/22 16:28> Stated Complaint: BACK PAIN <ORI Ruff - Last Filed: 10/10/22 16:28> Time Seen by Provider: 10/10/22 13:42 <ORI Ruff - Last Filed: 10/10/22 16:28> Source: patient and EMS <ORI Ruff - Last Filed: 10/10/22 16:28> Mode of arrival: EMS <ORI Ruff - Last Filed: 10/10/22 16:28> Limitations: no limitations <ORI Ruff Last Filed: 10/10/22 16:28> History of Present Illness HPI Narrative: 77 yo male with history of CAD, carotid artery disease, hypertension, HLD, ischemic cardiomyopathy, left ventricular mural thrombosis on Coumadin , [place], PVD who has an ICD in place, and T7 and L4/L5 fractures 2 different kyphoplasties procedures by Dr. Holcomb in the past who presents to the ER from home via EMS for evaluation of lower back pain for the last 1 month after a fall. He states he tripped, falling forward and hitting his right elbow sustaining a laceration. He did not seek medical evaluation at the time. He has been reporting increasing low back back across his entire lower back since the fall. He states when he fell he did not hit his head or lose consciousness. He has been having to use his walker or cane to ambulate due to the pain. It does not radiate. No urinary or bowel issues. He has not taken any medications for the pain. Patient also reports spontaneous nose bleed today, last INR was checked about a month ago. No melena or BRBPR. <ORI Ruff - Last Filed: 10/10/22 16:28> MD elicited complaint: back pain <ORI Ruff Last Filed: 10/10/22 16:28> Pertinent past history: prior back pain <ORI Ruff - Last Filed: 10/10/22 16:28> Onset (ago): week(s) (4) <ORI Ruff - Last Filed: 10/10/22 16:28> Timing: intermittent <ROI Ruff - Last Filed: 10/10/22 16:28> Severity: severe <ORI Ruff - Last Filed: 10/10/22 16:28> Similar Symptoms Previously: Yes <ORI Ruff - Last Filed: 10/10/22 16:28> Quality: aching <ORI Ruff - Last Filed: 10/10/22 16:28> Location: right lower back and left lower back <ORI Ruff - Last Filed: 10/10/22 16:28> Radiation: none <ORI Ruff - Last Filed: 10/10/22 16:28> Exacerbating factors: movement and walking <ORI Ruff - Last Filed: 10/10/22 16:28> Relieving factors: immobilization <ORI Ruff - Last Filed: 10/10/22 16:28> Context: fall <ORI Ruff - Last Filed: 10/10/22 16:28> Associated symptoms: denies other symptoms <ORI Ruff - Last Filed: 10/10/22 16:28> Work related injury: No <ORI Ruff - Last Filed: 10/10/22 16:28> Related Data Home Medications: Previous Rx's Medication Instructions Recorded atorvastatin 80 mg tablet 80 mg PO DAILY #90 tabs 03/06/22 metoprolol succinate 50 mg 50 mg PO DAILY #90 tabs 07/18/22 tablet,extended release 24 hr albuterol sulfate 90 mcg/actuation 2 puff PO Q6H PRN Shortness Of 09/12/22 aerosol inhaler Breath Or Wheezing 30 days #8.5 grams tiotropium 2.5 mcg-olodaterol 2.5 2 puff inhalation Q24H 90 days #3 09/12/22 mcg/actuation mist for inhalation ea (Stiolto Respimat) lisinopril 10 mg tablet 10 mg PO DAILY 90 days #90 caps 09/26/22 warfarin 4 mg tablet 4 mg PO DAILY #90 tabs 10/07/22 <ORI Ruff - Last Filed: 10/10/22 16:28> Allergies/Adverse Reactions: Allergies Allergy/AdvReac Type Severity Reaction Status Date / Time No Known Allergies Allergy Verified 09/12/22 13:22 <ORI Ruff - Last Filed: 10/10/22 16:28> Review of Systems Review of Systems: Yes all other systems are reviewed and are negative <ORI Ruff - Last Filed: 10/10/22 16:28> [facility] Past Medical History Medical History: Medical History CAD (coronary artery disease) Carotid artery disease Compression fx, thoracic spine (~2016) COPD (chronic obstructive pulmonary disease) Fracture of medial malleolus, left, closed HTN (hypertension) Hyperlipidemia ICD (implantable cardioverter-defibrillator) in place (~2019) Ischemic cardiomyopathy LV (left ventricular) mural thrombus Nicotine dependence, cigarettes, uncomplicated [place] (myocardial infarction) Osteoporosis (~2017) PVD (peripheral vascular disease) Vitamin D deficiency <ORI Ruff - Last Filed: 10/10/22 16:28> Surgical History: Surgical History History of bone marrow biopsy (~2016) History of colonoscopy (~2002) History of hemorrhoidectomy (~1969) History of implantable cardioverter-defibrillator (ICD) insertion (~2019) History of kyphoplasty (~2016) History of vascular surgery (~2012) <ORI Ruff - Last Filed: 10/10/22 16:28> Family History Family History: Family History Father No problems noted. Mother Diabetes Small cell lung cancer <ORI Ruff - Last Filed: 10/10/22 16:28> Social History Social History: Social History Household Members: Children Housing: House Are you a primary healthcare manager to a significant other at home: No Do you presently have visiting nurse or other home services: No Alcohol intake: current Alcohol intake frequency: 3 or more drinks per day Alcohol type: beer Patient Tobacco Use Status: Current everyday Tobacco user Cigarette Packs Per Day: 1 Cigarettes Per Day: 20.0 Years Smoked: 52 Smoked in Last 30 Days: Yes e-Cigarette/Vaping Use: Never Used Second Hand Smoke Exposure: No Use of substances other than those prescribed or required for medical reasons: No Advance Directives: Yes Advance Directives Information Provided: No Advance Directives on File: No service: Yes Current occupational status: retired Cognitive needs: No Hearing needs: No Vision needs: No <ORI Ruff - Last Filed: 10/10/22 16:28> Physical Exam Vital Signs: Vital Signs: Last Vital Signs Temp 97.7 F 10/11/22 10:21 Pulse 68 10/11/22 10:21 Resp 14 10/11/22 10:21 BP 133/58 L 10/11/22 10:21 Pulse Ox 95 10/11/22 10:21 O2 Del Method Room Air 10/11/22 10:21 O2 Flow Rate 2 10/11/22 06:00 BMI result Body Mass Index 20.7 <ORI Ruff - Last Filed: 10/10/22 16:28> Vital Signs: Last Vital Signs Temp 97.7 F 10/11/22 10:21 Pulse 68 10/11/22 10:21 Resp 14 10/11/22 10:21 BP 133/58 L 10/11/22 10:21 Pulse Ox 95 10/11/22 10:21 O2 Del Method Room Air 10/11/22 10:21 O2 Flow Rate 2 10/11/22 06:00 BMI result Body Mass Index 20.7 <ORI Hunter - Last Filed: 10/11/22 12:36> Appearance: Alert. Oriented X3. No acute distress. Head: normocephalic, atraumatic. Eyes: Pupils equal, round and reactive to light. ENT: Pharynx normal. No tonsillar swelling or exudate. dried blood around the nares Neck: Normal inspection. Neck supple. CVS: Normal heart rate and rhythm. Pulses normal. ICD in place on left chest wall Respiratory: No respiratory distress. Breath sounds decreased at the bases bilaterally. congested cough Abdomen: Soft and nontender. +BS x4 Skin: Skin warm and dry. Normal skin color. Normal skin turgor. No rashes. Back: tenderness of the lumbar area throughout without any point tenderness midline or palpable muscle spasm Extremities: No lower extremity edema. No joint swelling. Neuro/psych: Oriented X 3. No motor deficit. No sensory deficit. CN II-XII intact. Normal speech and cognition. gait not tested due to pain <ORI Ruff - Last Filed: 10/10/22 16:28> Course Course Course Narrative: 10/11/2022 0801: Physician observation continues. Patient's COVID test came back positive. Case management working on case. 10/11/2022 1236: [facility] <ORI Hunter - Last Filed: 10/11/22 12:36> Medications Administered Generic Name Dose Route Start Last Admin Trade Name Freq PRN Reason Stop Dose Admin Acetaminophen 975 mg 10/10/22 16:30 10/11/22 09:55 Acetaminophen 325 Mg Tablet PO 975 mg Q6H CHERELLE Administration Docusate Sodium 100 mg 10/10/22 21:00 10/11/22 09:56 Docusate Sodium 100 Mg Capsule PO Not Given BID CHERELLE Discontinued Medications Generic Name Dose Route Start Last Admin Trade Name Freq PRN Reason Stop Dose Admin Acetaminophen 975 mg 10/10/22 13:50 10/10/22 14:13 Acetaminophen 325 Mg Tablet PO 10/10/22 13:51 975 mg ONCE ONE Administration Lidocaine 1 patch 10/10/22 16:28 10/10/22 18:52 Lidocaine 4 % Patch Adh..Patch TRANSDERMA 10/10/22 16:29 1 patch ONCE ONE Administration Protocol Oxycodone HCl 5 mg 10/10/22 13:50 10/10/22 14:13 Oxycodone Hcl Immed Release 5 Mg Tablet PO 10/10/22 13:51 5 mg ONCE ONE Administration Phytonadione 5 mg 10/10/22 16:22 10/10/22 17:43 Phytonadione (Vit K1) Oral 10 Mg/Ml Ampul PO 10/10/22 16:23 5 mg ONCE ONE Administration <ORI Ruff - Last Filed: 10/10/22 16:28> Medications Administered Generic Name Dose Route Start Last Admin Trade Name Freq PRN Reason Stop Dose Admin Acetaminophen 975 mg 10/10/22 16:30 10/11/22 09:55 Acetaminophen 325 Mg Tablet PO 975 mg Q6H CHERELLE Administration Docusate Sodium 100 mg 10/10/22 21:00 10/11/22 09:56 Docusate Sodium 100 Mg Capsule PO Not Given BID CHERELLE Discontinued Medications Generic Name Dose Route Start Last Admin Trade Name Santana PRN Reason Stop Dose Admin Acetaminophen 975 mg 10/10/22 13:50 10/10/22 14:13 Acetaminophen 325 Mg Tablet PO 10/10/22 13:51 975 mg ONCE ONE Administration Lidocaine 1 patch 10/10/22 16:28 10/10/22 18:52 Lidocaine 4 % Patch Adh..Patch TRANSDERMA 10/10/22 16:29 1 patch ONCE ONE Administration Protocol Oxycodone HCl 5 mg 10/10/22 13:50 10/10/22 14:13 Oxycodone Hcl Immed Release 5 Mg Tablet PO 10/10/22 13:51 5 mg ONCE ONE Administration Phytonadione 5 mg 10/10/22 16:22 10/10/22 17:43 Phytonadione (Vit K1) Oral 10 Mg/Ml Ampul PO 10/10/22 16:23 5 mg ONCE ONE Administration <ORI Hunter - Last Filed: 10/11/22 12:36> Medical Decision Making Medical Decision Making MDM Narrative: 77 yo male with history of CAD, carotid artery disease, hypertension, HLD, ischemic cardiomyopathy, left ventricular mural thrombosis on Coumadin , [place], PVD who has an ICD in place, and T7 and L4/L5 fractures 2 different kyphoplasties procedures by Dr. Holcomb in the past who presents to the ER for evaluation of low back pain s/p fall month ago. Concern for recurrent compression fracture or spinal fracture given recent trauma. He is able to move his legs but has trouble walking due to pain. No red flag symptoms of low back pain. XR lumbar and thoracic spine showing probable new compression fx at T12, mild. unlikely to be a candidate for kyphoplasty as deformity is not severe. His pain is not improved after oxycodone and tylenol. he does not feel safe going home. INR 5.7 - will give vitamin k 5mg given his bloody nose today. PT should see him tomorrow once his INR <5. Will repeat in the AM will place patient in physician observation, pending PT evaluation for potential STR placement. med rec pending. <ORI Ruff - Last Filed: 10/10/22 16:28> Differential Diagnosis Differential Diagnoses: The differential diagnosis associated with the presentation includes <ORI Ruff - Last Filed: 10/10/22 16:28> Compression fracture, inflammatory disorders, malignancy, trauma, osteoporosis, nerve root compression, radiculopathy, plexopathy, degenerative disc disease, disc herniation, spinal stenosis, sacroiliac joint dysfunction, facet joint injury, and less likely infection?like abscess or diskitis <ORI Ruff - Last Filed: 10/10/22 16:28> Admission/Observation Consideration of admission/observation: Escalation of care including admission/observation considered <ORI Ruff - Last Filed: 10/10/22 16:28> intractable pain, unsteady gait <ORI Ruff - Last Filed: 10/10/22 16:28> Lab Data MDM Lab Attestation statement: I reviewed the patient's lab results. <ORI Ruff - Last Filed: 10/10/22 16:28> chronic hyponatremia <ORI Ruff - Last Filed: 10/10/22 16:28> Result Diagrams: 10/10/22 15:32 10/10/22 15:32 <ORI Ruff - Last Filed: 10/10/22 16:28> Labs: Lab Results 10/10/22 10/10/22 10/10/22 Range/Units 15:32 15:32 15:32 WBC 6.9 (4.8-10.8) X10*3/uL RBC 4.12 L (4.60-5.80) X10*6/uL Hgb 12.6 L (14.0-18.0) g/dl Hct 36.8 L (42.0-52.0) % MCV 89.3 (80.0-98.0) fL MCH 30.6 (27.0-33.0) pg MCHC 34.2 (31.0-36.0) g/dl RDW 14.9 (11.0-16.0) % Plt Count 149 L (160-400) X10*3/uL MPV 9.2 L (9.4-12.4) fL Immature Gran % (Auto) 0.1 (0.0-0.4) % Neut % (Auto) 78.9 H (45-73) % Lymph % (Auto) 11.0 L (20-40) % Pickett % (Auto) 9.0 (2-11) % Eos % (Auto) 0.6 (0-4) % Baso % (Auto) 0.4 (0-2) % Lymph # (Auto) 0.8 L (1.2-4.9) X10*3/uL Pickett # (Auto) 0.6 (0.1-1.2) X10*3/uL Eos # (Auto) 0.0 (0.0-0.4) X10*3/uL Baso # (Auto) 0.0 (0.0-0.2) X10*3/uL Abs Immat Gran (auto) 0.01 (0.00-0.03) X10*3/uL Absolute Neuts (auto) 5.5 (2.0-8.3) x10*3/uL Absolute Nucleated RBC 0.000 (0.0-0.012) X10*3/uL Nucleated RBC % (auto) 0.0 (0.0-0.2) /100WBC Smear Path Review PT 70.0 H (10.0-13.1) SEC INR 5.7 H* D (0.9-1.1) APTT 53.7 H (26.0-36.4) SEC Sodium 127 L (135-145) mmol/L Potassium 4.4 (3.3-5.1) mmol/L Chloride 92 L (96-108) mmol/L Carbon Dioxide 27 (22-29) mmol/L Anion Gap 12 (12-20) BUN 11 (9-16) mg/dL Creatinine 0.68 (0.5-1.4) mg/dL Estim Creat Clear Calc 71.6 Estimated GFR > 60 Random Glucose 95 (60-115) mg/dL Calcium 8.9 (8.4-10.2) mg/dL Total Bilirubin 1.7 H (0.0-1.0) mg/dL Direct Bilirubin 0.7 H (0.0-0.5) mg/dL AST 25 (5-37) U/L ALT 15 (0-40) U/L Alkaline Phosphatase 165 H (39-117) U/L Total Protein 5.6 L (6.5-8.0) g/dL Albumin 3.5 (3.5-5.0) g/dL COVID-19 ([facility]) (Negative) COVID-19 Clin Com 10/10/22 10/11/22 10/11/22 Range/Units 22:55 07:45 07:45 WBC 5.6 (4.8-10.8) X10*3/uL RBC 3.95 L (4.60-5.80) X10*6/uL Hgb 12.2 L (14.0-18.0) g/dl Hct 35.6 L (42.0-52.0) % MCV 90.1 (80.0-98.0) fL MCH 30.9 (27.0-33.0) pg MCHC 34.3 (31.0-36.0) g/dl RDW 14.6 (11.0-16.0) % Plt Count 142 L (160-400) X10*3/uL MPV 9.3 L (9.4-12.4) fL Immature Gran % (Auto) 0.2 (0.0-0.4) % Neut % (Auto) 67.1 (45-73) % Lymph % (Auto) 18.5 L (20-40) % Pickett % (Auto) 11.7 H (2-11) % Eos % (Auto) 1.6 (0-4) % Baso % (Auto) 0.9 (0-2) % Lymph # (Auto) 1.0 L (1.2-4.9) X10*3/uL Pickett # (Auto) 0.7 (0.1-1.2) X10*3/uL Eos # (Auto) 0.1 (0.0-0.4) X10*3/uL Baso # (Auto) 0.1 (0.0-0.2) X10*3/uL Abs Immat Gran (auto) 0.01 (0.00-0.03) X10*3/uL Absolute Neuts (auto) 3.8 (2.0-8.3) x10*3/uL Absolute Nucleated RBC 0.060 H (0.0-0.012) X10*3/uL Nucleated RBC % (auto) 1.1 H (0.0-0.2) /100WBC Smear Path Review SEE NOTE PT 28.3 H (10.0-13.1) SEC INR 2.4 H D (0.9-1.1) APTT (26.0-36.4) SEC Sodium (135-145) mmol/L Potassium (3.3-5.1) mmol/L Chloride (96-108) mmol/L Carbon Dioxide (22-29) mmol/L Anion Gap (12-20) BUN (9-16) mg/dL Creatinine (0.5-1.4) mg/dL Estim Creat Clear Calc Estimated GFR Random Glucose (60-115) mg/dL Calcium (8.4-10.2) mg/dL Total Bilirubin (0.0-1.0) mg/dL Direct Bilirubin (0.0-0.5) mg/dL AST (5-37) U/L ALT (0-40) U/L Alkaline Phosphatase (39-117) U/L Total Protein (6.5-8.0) g/dL Albumin (3.5-5.0) g/dL COVID-19 ([facility]) Positive A (Negative) COVID-19 Clin Com See Note <ORI Ruff - Last Filed: 10/10/22 16:28> Lab Results 10/10/22 10/10/22 10/10/22 Range/Units 15:32 15:32 15:32 WBC 6.9 (4.8-10.8) X10*3/uL RBC 4.12 L (4.60-5.80) X10*6/uL Hgb 12.6 L (14.0-18.0) g/dl Hct 36.8 L (42.0-52.0) % MCV 89.3 (80.0-98.0) fL MCH 30.6 (27.0-33.0) pg MCHC 34.2 (31.0-36.0) g/dl RDW 14.9 (11.0-16.0) % Plt Count 149 L (160-400) X10*3/uL MPV 9.2 L (9.4-12.4) fL Immature Gran % (Auto) 0.1 (0.0-0.4) % Neut % (Auto) 78.9 H (45-73) % Lymph % (Auto) 11.0 L (20-40) % Pickett % (Auto) 9.0 (2-11) % Eos % (Auto) 0.6 (0-4) % Baso % (Auto) 0.4 (0-2) % Lymph # (Auto) 0.8 L (1.2-4.9) X10*3/uL Pickett # (Auto) 0.6 (0.1-1.2) X10*3/uL Eos # (Auto) 0.0 (0.0-0.4) X10*3/uL Baso # (Auto) 0.0 (0.0-0.2) X10*3/uL Abs Immat Gran (auto) 0.01 (0.00-0.03) X10*3/uL Absolute Neuts (auto) 5.5 (2.0-8.3) x10*3/uL Absolute Nucleated RBC 0.000 (0.0-0.012) X10*3/uL Nucleated RBC % (auto) 0.0 (0.0-0.2) /100WBC Smear Path Review PT 70.0 H (10.0-13.1) SEC INR 5.7 H* D (0.9-1.1) APTT 53.7 H (26.0-36.4) SEC Sodium 127 L (135-145) mmol/L Potassium 4.4 (3.3-5.1) mmol/L Chloride 92 L (96-108) mmol/L Carbon Dioxide 27 (22-29) mmol/L Anion Gap 12 (12-20) BUN 11 (9-16) mg/dL Creatinine 0.68 (0.5-1.4) mg/dL Estim Creat Clear Calc 71.6 Estimated GFR > 60 Random Glucose 95 (60-115) mg/dL Calcium 8.9 (8.4-10.2) mg/dL Total Bilirubin 1.7 H (0.0-1.0) mg/dL Direct Bilirubin 0.7 H (0.0-0.5) mg/dL AST 25 (5-37) U/L ALT 15 (0-40) U/L Alkaline Phosphatase 165 H (39-117) U/L Total Protein 5.6 L (6.5-8.0) g/dL Albumin 3.5 (3.5-5.0) g/dL COVID-19 ([facility]) (Negative) COVID-19 Clin Com 10/10/22 10/11/22 10/11/22 Range/Units 22:55 07:45 07:45 WBC 5.6 (4.8-10.8) X10*3/uL RBC 3.95 L (4.60-5.80) X10*6/uL Hgb 12.2 L (14.0-18.0) g/dl Hct 35.6 L (42.0-52.0) % MCV 90.1 (80.0-98.0) fL MCH 30.9 (27.0-33.0) pg MCHC 34.3 (31.0-36.0) g/dl RDW 14.6 (11.0-16.0) % Plt Count 142 L (160-400) X10*3/uL MPV 9.3 L (9.4-12.4) fL Immature Gran % (Auto) 0.2 (0.0-0.4) % Neut % (Auto) 67.1 (45-73) % Lymph % (Auto) 18.5 L (20-40) % Pickett % (Auto) 11.7 H (2-11) % Eos % (Auto) 1.6 (0-4) % Baso % (Auto) 0.9 (0-2) % Lymph # (Auto) 1.0 L (1.2-4.9) X10*3/uL Pickett # (Auto) 0.7 (0.1-1.2) X10*3/uL Eos # (Auto) 0.1 (0.0-0.4) X10*3/uL Baso # (Auto) 0.1 (0.0-0.2) X10*3/uL Abs Immat Gran (auto) 0.01 (0.00-0.03) X10*3/uL Absolute Neuts (auto) 3.8 (2.0-8.3) x10*3/uL Absolute Nucleated RBC 0.060 H (0.0-0.012) X10*3/uL Nucleated RBC % (auto) 1.1 H (0.0-0.2) /100WBC Smear Path Review SEE NOTE PT 28.3 H (10.0-13.1) SEC INR 2.4 H D (0.9-1.1) APTT (26.0-36.4) SEC Sodium (135-145) mmol/L Potassium (3.3-5.1) mmol/L Chloride (96-108) mmol/L Carbon Dioxide (22-29) mmol/L Anion Gap (12-20) BUN (9-16) mg/dL Creatinine (0.5-1.4) mg/dL Estim Creat Clear Calc Estimated GFR Random Glucose (60-115) mg/dL Calcium (8.4-10.2) mg/dL Total Bilirubin (0.0-1.0) mg/dL Direct Bilirubin (0.0-0.5) mg/dL AST (5-37) U/L ALT (0-40) U/L Alkaline Phosphatase (39-117) U/L Total Protein (6.5-8.0) g/dL Albumin (3.5-5.0) g/dL COVID-19 ([facility]) Positive A (Negative) COVID-19 Clin Com See Note <ORI Hunter - Last Filed: 10/11/22 12:36> Independent Interpretation I performed an independent interpretation of an: Plain X-Ray <ORI Ruff - Last Filed: 10/10/22 16:28> Interpretation: ?T12 compression fx, kyphoplasties noted <ORI Ruff Last Filed: 10/10/22 16:28> Radiology Impression Discussion of test interpretation with radiology: I have reviewed the radiologist's reading. <ORI Ruff - Last Filed: 10/10/22 16:28> Radiologist Impression: Indication: Fall with a history of kyphoplasty EXAMINATION: Thoracic spine and lumbar sacral spine. 3 views of the thoracic spine are compared to sagittal imaging from CT dated 07/04/2022. Also PET/CT imaging dated 07/30/2022 Kyphoplasty in the mid thoracic region. Some compression injury above and below this similar to previous. There does appear to be new compression at D12. Mid to anterior loss of height.? 3 views of the lumbar sacral spine once again demonstrate compression at T12. Kyphoplasty at L5 L4. Appearance similar to PET/CT. Some loss of mid to anterior height at L3 similar to CT. XR/XR thoracic spine 3V IMPRESSION: I believe this exam does does demonstrate new compression at D12. Otherwise areas of chronic compression and kyphoplasty <ORI Ruff - Last Filed: 10/10/22 16:28> Independent Historian Clinical information obtained from an independent historian. History obtained from or confirmed by: EMS and Other <ORI Ruff Last Filed: 10/10/22 16:28> External Record Review External record reviewed: Outpatient record, Prior outpatient labs and Prior outpatient radiology <ORI Ruff Last Filed: 10/10/22 16:28> Tests considered The following testing was considered but not selected: CT spine <ORI Ruff Last Filed: 10/10/22 16:28> Prescription Management I considered prescription management with: Pain Medication <ORI Ruff Last Filed: 10/10/22 16:28> Chronic Conditions Patient?s care impacted by: Hypertension and Other (on Coumadin) <ORI Ruff Last Filed: 10/10/22 16:28> Critical Care Time Critical Care Time Critical Care Time: No <ORI Ruff Last Filed: 10/10/22 16:28> Discharge Plan Discharge Clinical Impression: T12 compression fracture, Supratherapeutic INR <ORI uRff Last Filed: 10/10/22 16:28> Patient Disposition: Still a Patient <ORI Ruff Last Filed: 10/10/22 16:28> Prescriptions: No Action atorvastatin 80 mg tablet 80 mg PO DAILY Qty: 90 3RF metoprolol succinate 50 mg tablet extended release 24 hr 50 mg PO DAILY Qty: 90 3RF lisinopril 10 mg tablet 10 mg PO DAILY 90 Days Qty: 90 1RF warfarin 4 mg tablet 4 mg PO DAILY Qty: 90 2RF Hold Instructions: Resume on 06/12/20. Follow-up with thoracic surgery on Friday 09:00, Dr Rick's office and further use of Coumadin as per thoracic surgery. Protocol: Dose Management Condition: Friday (Week One) Dose/Route: 4 mg Instruction: 1 x 4 mg tablet Condition: Friday Dose/Route: 4 mg Instruction: 1 x 4 mg tablet Condition: Friday Dose/Route: 4 mg Instruction: 1 x 4 mg tablet Condition: Friday Dose/Route: 2 mg Instruction: 0.5 x 4 mg tablets Condition: Dose/Route: 4 mg Instruction: 1 x 4 mg tablet Condition: Friday Dose/Route: 4 mg Instruction: 1 x 4 mg tablet Condition: Friday Dose/Route: 4 mg Instruction: 1 x 4 mg tablet Condition: Friday (Week Two) Dose/Route: 4 mg Instruction: 1 x 4 mg tablet Condition: Friday Dose/Route: 4 mg Instruction: 1 x 4 mg tablet Condition: Friday Dose/Route: 4 mg Instruction: 1 x 4 mg tablet Condition: Friday Dose/Route: 2 mg Instruction: 0.5 x 4 mg tablets Condition: Dose/Route: 4 mg Instruction: 1 x 4 mg tablet Condition: Friday Dose/Route: 4 mg Instruction: 1 x 4 mg tablet Condition: Friday Dose/Route: 4 mg Instruction: 1 x 4 mg tablet Protocol Text: Adjustment Start Date: Friday08/16/22 INR Value: 2.1 INR Date: 08/16/22 Recheck Date: 08/30/22 albuterol sulfate 90 mcg/actuation HFA aerosol inhaler 2 puff PO Q6H PRN (Reason: Shortness Of Breath Or Wheezing) 30 Days Qty: 8.5 6RF Stiolto Respimat 2.5-2.5 mcg/actuation mist 2 puff inhalation Q24H 90 Days Qty: 3 6RF <ORI Ruff - Last Filed: 10/10/22 16:28>
[2022-10-10 13:57] VITALS: BP 141/62; PULSE 65; RESP 20; TEMP 36.3; O2SAT 97; BMI 20.7
[2022-10-10] MEDS: Acetaminophen 325 MG TABLET 975 MG PO ×2 (14:13→22:36)
[2022-10-10] MEDS: oxyCODONE HCl Immed Release 5 MG TABLET PO (14:13)
[2022-10-10 15:37] LABS: MANUAL DIFF FLAG NO
[2022-10-10 15:43] LABS: Basophils Percent Auto 0.4 % (0-2); Eosinophils Percent Auto 0.6 % (0-4); Hematocrit 36.8 % (42.0-52.0); Hemoglobin 12.6 g/dl (14.0-18.0); Imm Gran Abs Auto 0.01 X10*3/uL (0.00-0.03); Imm Gran Pct Auto 0.1 % (0.0-0.4); Lymphocytes Absolute Auto 0.8 X10*3/uL (1.2-4.9); Mean Corpuscular HGB Conc 34.2 g/dl (31.0-36.0); Mean Corpuscular Hemoglobin 30.6 pg (27.0-33.0); Mean Corpuscular Volume 89.3 fL (80.0-98.0); Mean Platelet Volume 9.2 fL (9.4-12.4); Monocytes Absolute Auto 0.6 X10*3/uL (0.1-1.2); Neutrophils Absolute Auto 5.5 x10*3/uL (2.0-8.3); Neutrophils Percent Auto 78.9 % (45-73); Platelet Count 149 X10*3/uL (160-400); Red Blood Count 4.12 X10*6/uL (4.60-5.80); Red Cell Distribution Width 14.9 % (11.0-16.0); White Blood Count 6.9 X10*3/uL (4.8-10.8)
[2022-10-10 15:58] LABS: Alanine Aminotransferase 15 U/L (0-40); Albumin Level 3.5 g/dL (3.5-5.0); Alkaline Phosphatase 165 U/L (39-117); Anion Gap 12 (12-20); Aspartate Amino Transferase 25 U/L (5-37); Bilirubin Direct 0.7 mg/dL (0.0-0.5); Bilirubin Total 1.7 mg/dL (0.0-1.0); Blood Urea Nitrogen 11 mg/dL (9-16); Calcium 8.9 mg/dL (8.4-10.2); Carbon Dioxide 27 mmol/L (22-29); Chloride 92 mmol/L (96-108); Creatinine Clr Calc Pharmacy 71.6; Estimated Glomerular Filt Rate > 60; Glucose Random 95 mg/dL (60-115); Potassium 4.4 mmol/L (3.3-5.1); Sodium 127 mmol/L (135-145); Total Protein 5.6 g/dL (6.5-8.0)
[2022-10-10 16:01] LABS: Partial Thromboplastin Time 53.7 SEC (26.0-36.4)
[2022-10-10 16:23] LABS: INTERNATIONAL NORM RATIO 5.7 (0.9-1.1)
[2022-10-10 16:32] VITALS: BP 104/61; PULSE 61; RESP 18; O2SAT 93
--- NOTE | 2022-10-10 17:01 | PHA.MEDREC ---
Pharmacy Consult ? Medication Reconciliation Pharmacy has completed the medication reconciliation.
[2022-10-10] MEDS: Phytonadione (Vit K1) Oral 10 MG/ML AMPUL 5 MG PO (17:43)
[2022-10-10] MEDS: Lidocaine 4 % Patch ADH..PATCH 1 PATCH TRANSDERMA (18:52)
[2022-10-10 21:38] VITALS: BP 103/58; PULSE 73; RESP 19; TEMP 36.7; O2SAT 93
--- NOTE | 2022-10-10 22:13 | MHC.CM.ED ---
CM met with patient. PT pending. Back Pain-new fx. Ortho-no tx. Agreeable to STR. Requests [facility]st choice. Local referrals placed. [place] x26 years. No vet services. No VA. Has Medicare and for life.Lives with son. Uses can/rollator. No services. Blind L eye. [employer]a x3. HCP reviewed, completed and signed. HCP #1 Margoth Santana (daughter) [phone] and HCP #2 Michael Liaomagdiel (son) [phone]. D/C plan: STR. CM following for discharge needs.
[2022-10-10 23:10] LABS: COVID-19 Test Positive (Negative); IDNOW Serial# 6674DD1D
[2022-10-11 01:24] VITALS: BP 96/66; PULSE 88; RESP 17; TEMP 36.4; O2SAT 92
--- NOTE | 2022-10-11 01:45 | PC.NURSE ---
assumed care of pt aox4 no apparent distress call light within reach lights dimmed
[2022-10-11 04:06] VITALS: BP 95/48; PULSE 56; RESP 17; TEMP 37; O2SAT 97
--- NOTE | 2022-10-11 05:00 | PC.NURSE ---
pt refusing Tylenol, report to ELIUD gill
[2022-10-11 06:00] VITALS: BP 105/54; PULSE 70; RESP 17; TEMP 36.9; O2SAT 97
--- NOTE | 2022-10-11 06:10 | PC.NURSE ---
pt sleeping, no apparent distress respirations even and unlabored
[2022-10-11 07:33] VITALS: BP 105/54; PULSE 70; O2SAT 97
[2022-10-11 07:51] LABS: MANUAL DIFF FLAG NO
[2022-10-11 07:53] LABS: Basophils Absolute Auto 0.1 X10*3/uL (0.0-0.2); Basophils Percent Auto 0.9 % (0-2); Eosinophils Absolute Auto 0.1 X10*3/uL (0.0-0.4); Eosinophils Percent Auto 1.6 % (0-4); Hematocrit 35.6 % (42.0-52.0); Hemoglobin 12.2 g/dl (14.0-18.0); Imm Gran Abs Auto 0.01 X10*3/uL (0.00-0.03); Imm Gran Pct Auto 0.2 % (0.0-0.4); Lymphocytes Percent Auto 18.5 % (20-40); Mean Corpuscular HGB Conc 34.3 g/dl (31.0-36.0); Mean Corpuscular Hemoglobin 30.9 pg (27.0-33.0); Mean Corpuscular Volume 90.1 fL (80.0-98.0); Mean Platelet Volume 9.3 fL (9.4-12.4); Monocytes Absolute Auto 0.7 X10*3/uL (0.1-1.2); Monocytes Percent Auto 11.7 % (2-11); NRBC Pct Auto 1.1 /100WBC (0.0-0.2); Neutrophils Absolute Auto 3.8 x10*3/uL (2.0-8.3); Neutrophils Percent Auto 67.1 % (45-73); Platelet Count 142 X10*3/uL (160-400); Red Blood Count 3.95 X10*6/uL (4.60-5.80); Red Cell Distribution Width 14.6 % (11.0-16.0); White Blood Count 5.6 X10*3/uL (4.8-10.8)
[2022-10-11 07:57] LABS: INTERNATIONAL NORM RATIO 2.4 (0.9-1.1); Prothrombin Time 28.3 SEC (10.0-13.1)
--- NOTE | 2022-10-11 08:08 | PC.NURSE ---
Resumed care of patient this morning, he is a.ox4, denies pain at this time, Pt Covid results +, placed on precautions at this time. Awaiting CM placement at this time
--- NOTE | 2022-10-11 08:23 | MHC.CM.ED ---
Addendum entered by Gela Pan 10/11/22 12:45: [facility] offer a bed. Patient accepts bed. [facility] booked for 330pm. Addendum entered by Gela Pan 10/11/22 11:18: Patient reports he never tested positive for Covid. Original Note: Patient remains in ER. Covid swab from 10/10 positive. Physical therapy eval completed. Short term rehab is recommended. Per [facility], [facility] is 1st choice. T/W met with patient. Patient confirmed [facility] is 1st choice. Referral updated in [facility]. Continue to monitor for d/c needs.
[2022-10-11] MEDS: Acetaminophen 325 MG TABLET 975 MG PO (09:55)
[2022-10-11 10:21] VITALS: BP 133/58; PULSE 68; RESP 14; TEMP 36.5; O2SAT 95
== END 2022-10-11 15:45 | disposition skilled nursing facility (03) ==
PROVIDERS: Physician Assistant; Emergency Provider Emergency Medicine; PCP Nurse Practitioner Family
DX: U07.1 COVID-19 (principal); S22.080A Wedge compression fracture of T11-T12 vertebra, initial encounter for closed fracture; W19.XXXA Unspecified fall, initial encounter; Y93.9 Activity, unspecified; Y92.019 Unspecified place in single-family (private) house as the place of occurrence of the external cause; Y99.9 Unspecified external cause status
CPT/HCPCS: 36415; 72072; 72100; 80048; 80076; 85025; 85610; 85730; 87635; 97162; 99284; 99285

== ENCOUNTER → 2022-11-20 10:03 | Outpatient (BNVA) | payer MEDICARE, OTHER, SELFPAY | PROVIDERS: PCP Nurse Practitioner Family; Visit Provider Internal Medicine | DX: I51.3 Intracardiac thrombosis, not elsewhere classified (principal); Z51.81 Encounter for therapeutic drug level monitoring; Z79.01 Long term (current) use of anticoagulants | CPT/HCPCS: 85610; 99211 ==

== ENCOUNTER 2022-12-26 09:09 | Outpatient (AMB) | payer MEDICARE, OTHER, SELFPAY ==
--- NOTE | 2022-12-26 09:15 | MHC.OFFVISCO ---
Intake Intake Visit Reasons: Anticoagulation Allergies No Known Allergies Allergy (Verified 12/26/22 09:10) Medication List - Last Reconciled 12/26/22 by Carlene Acosta RN albuterol sulfate 90 mcg/actuation 2 puffs PO Q6H PRN 30 days atorvastatin 80 mg PO DAILY lisinopril 10 mg PO DAILY 90 days metoprolol succinate ER 50 mg PO DAILY tiotropium-olodaterol 2.5-2.5 mcg/actuation (Stiolto Respimat) 2 puffs inhalation Q24H 90 days warfarin 4 mg See Protocol PO DAILY Nursing Note INR 3.9-?? out of therapeutic range Medications and supplements reviewed Patient status: no c.o, states same etoh, to acs by w/c Medications or supplements: no changes Diet: same Denies any signs and symptoms of bleeding or clotting or unusual bruising Bleeding, bruising, clotting discussed Nutritional guidance given: eat greens to lower inr, no reds for 2 days Dose: already took warfarin today , hold dose tomm and pt req prev dosing- 4mg x 6, 2mg x 1 F/U INR Date : 2 week f/u recommended, pt ref earlier appt than 01/16/23? Patient verbalizing understanding of instructions given. Anti-Coag Initial Assessment Social Hx Patient Tobacco Use Status: Current everyday Tobacco user Smoking packs per day: 1 alcohol intake: current Alcohol intake frequency: 3 or more drinks per day Coding Level of Care Code Est Patient Level 1 Diagnoses Current use of anticoagulant therapy Z79.01 Assessment & Plan Assessment & Plan (1) Current use of anticoagulant therapy: Code(s): Z79.01 - halfway (current) use of anticoagulants Category: Medical
[2022-12-26 09:16] LABS: Prothrombin Time Whole Bld POC 46.5 sec (11.1-13.5); ~PT, ~INR - Anti Coag Clinic 3.9 (0.9-1.1)
--- NOTE | 2022-12-26 09:30 | MHC.OFFVISCO ---
Intake Intake Visit Reasons: Anticoagulation Allergies No Known Allergies Allergy (Verified 12/26/22 09:10) Medication List - Last Reconciled 12/26/22 by Carlene Acosta RN albuterol sulfate 90 mcg/actuation 2 puffs PO Q6H PRN 30 days atorvastatin 80 mg PO DAILY lisinopril 10 mg PO DAILY 90 days metoprolol succinate ER 50 mg PO DAILY tiotropium-olodaterol 2.5-2.5 mcg/actuation (Stiolto Respimat) 2 puffs inhalation Q24H 90 days warfarin 4 mg See Protocol PO DAILY Nursing Note INR 3.9-?? out of therapeutic range Medications and supplements reviewed Patient status: to acs by w/c. no c.o. pt states etoh same Medications or supplements: no changes Diet: same Denies any signs and symptoms of bleeding or clotting or unusual bruising Bleeding, bruising, clotting discussed Nutritional guidance given: eat greens to lower inr, no reds for 2 days Dose: pt states already took warfarin today, hold tomm then pt req reduced weekly dosing to 4mg x 6, 2mg x 1 F/U INR Date : 2 week f/u recommended, pt ref earlier appt than 01/16/23? Patient verbalizing understanding of instructions given. 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
== END 2022-12-26 09:28 | disposition home or self-care (01) ==
LOC: HO.ACS 09:09
PROVIDERS: PCP Nurse Practitioner Family; Visit Provider Internal Medicine
DX: Z79.01 Long term (current) use of anticoagulants (principal)

== ENCOUNTER → 2022-12-26 09:09 | Outpatient (BNVA) | payer MEDICARE, OTHER, SELFPAY | PROVIDERS: PCP Nurse Practitioner Family; Visit Provider Internal Medicine | DX: I51.3 Intracardiac thrombosis, not elsewhere classified (principal); Z79.01 Long term (current) use of anticoagulants; Z51.81 Encounter for therapeutic drug level monitoring | CPT/HCPCS: 85610; 99211 ==

== ENCOUNTER → 2023-01-02 23:59 | Outpatient (BNV) | payer MEDICARE, OTHER, SELFPAY ==
--- NOTE | 2023-01-02 11:26 | MHC.OFFVIS ---
Intake Intake Visit Reasons: Remote HF Monitoring- Medtr[employer] Allergies No Known Allergies Allergy (Verified 12/26/22 09:10) [facility] Medical History CAD (coronary artery disease) Carotid artery disease Compression fx, thoracic spine (~2016) COPD (chronic obstructive pulmonary disease) Fracture of medial malleolus, left, closed HTN (hypertension) Hyperlipidemia ICD (implantable cardioverter-defibrillator) in place (~2019) Ischemic cardiomyopathy LV (left ventricular) mural thrombus Nicotine dependence, cigarettes, uncomplicated Old [place] (myocardial infarction) Osteoporosis (~2017) PVD (peripheral vascular disease) Vitamin D deficiency Surgical History History of bone marrow biopsy (~2016) History of colonoscopy (~2002) History of hemorrhoidectomy (~1969) History of implantable cardioverter-defibrillator (ICD) insertion (~2019) History of kyphoplasty (~2016) History of vascular surgery (~2012) Family History Father No problems noted. Mother Diabetes Small cell lung cancer Social History Household Members: Children Housing: House Are you a primary child daycare worker to a significant other at home: No Do you presently have visiting nurse or other home services: No Alcohol intake: current Alcohol intake frequency: 3 or more drinks per day Alcohol type: beer Patient Tobacco Use Status: Current everyday Tobacco user Cigarette Packs Per Day: 1 Cigarettes Per Day: 20.0 Years Smoked: 52 e-Cigarette/Vaping Use: Never Used Second Hand Smoke Exposure: No service: Yes Current occupational status: retired Cognitive needs: No Hearing needs: No Vision needs: No Office Procedures Cardiac Device Check Cardiac Device Check Details: Remote heart failure report generated 01/10/2023. Heart failure parameters are in normal range on this report [id number] Cardiac Device Interrogation, cardio physiologic monitor Procedure code (CPT) selection complete Coding Level of Care Code Procedure Only Diagnoses CPT Codes Cardiac Device Check - Cardiac Device 15: [id number] Cardiac Device Interrogation, cardio physiologic monitor ([id number])
== END ==
PROVIDERS: PCP Nurse Practitioner Family; Visit Provider Internal Medicine Cardiovascular Disease
DX: I50.20 Unspecified systolic (congestive) heart failure (principal); Z95.810 Presence of automatic (implantable) cardiac defibrillator
CPT/HCPCS: 93297

== ENCOUNTER 2023-01-16 09:20 | Outpatient (AMB) | payer MEDICARE, OTHER, SELFPAY ==
[2023-01-16 09:35] LABS: Prothrombin Time Whole Bld POC 50.3 sec (11.1-13.5); ~PT, ~INR - Anti Coag Clinic 4.2 (0.9-1.1)
--- NOTE | 2023-01-16 09:45 | MHC.OFFVISCO ---
Intake Intake Visit Reasons: Anticoagulation Allergies No Known Allergies Allergy (Verified 01/16/23 09:30) Medication List - Last Reconciled 01/16/23 by Stephania Arnold, RN albuterol sulfate 90 mcg/actuation 2 puffs PO Q6H PRN 30 days atorvastatin 80 mg PO DAILY lisinopril 10 mg PO DAILY 90 days metoprolol succinate ER 50 mg PO DAILY tiotropium-olodaterol 2.5-2.5 mcg/actuation (Stiolto Respimat) 2 puffs inhalation Q24H 90 days warfarin 4 mg See Protocol PO DAILY Nursing Note To ACS via WC accomp by son, pt also has a cane, able to amb short distances only Medications and supplements reviewed, 3 weeks ago dosing change and pt ref earlier appt No changes in health, diet, medications, or supplements, PT ADMITS TO DAILY ETOH BEERS 4-6 AND SMOKE 1 PPD Pt s/p rehab in October for fall and hairline fx to back I have already had 3 kyphoplastys reviewed concern for fall risk, brain bleed Denies any unusual signs and symptoms of bruising, bleeding Denies any new Chest pain, SOB, or clotting INR: 4.2 above therapeutic range and higher than 3 weeks ago, son and pt feel it may be due to decreased greens in diet Nutritional guidance given: greens today then resume usual greens in diet and balance greens and reds in diet Dose: already took warfarin today, to hold tomorrow then decrease dose Friday to 2mg (vs 4mg) then follow dosing sheet. Possible weekly decrease again F/U INR: agreeable to 1 week then has cardiology appt 02/06 which will be 2 weeks after that, they will let us know what time that appt is and we will work around that Patient and son verbalizes understanding of instructions given with accurate read back/ teach back of dosing Anti-Coag Initial Assessment Social Hx Patient Tobacco Use Status: Current everyday Tobacco user Smoking packs per day: 1 alcohol intake: current Alcohol intake frequency: 3 or more drinks per day Coding Level of Care Code Est Patient Level 1 Diagnoses Current use of anticoagulant therapy Z79.01 Time Spent (min) 20 Assessment & Plan Assessment & Plan (1) Current use of anticoagulant therapy: Code(s): 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
== END 2023-01-16 10:02 | disposition home or self-care (01) ==
LOC: HO.ACS 09:20
PROVIDERS: PCP Nurse Practitioner Family; Visit Provider Internal Medicine
DX: Z79.01 Long term (current) use of anticoagulants (principal)

== ENCOUNTER → 2023-01-16 09:20 | Outpatient (BNVA) | payer MEDICARE, OTHER, SELFPAY | PROVIDERS: PCP Nurse Practitioner Family; Visit Provider Internal Medicine | DX: I51.3 Intracardiac thrombosis, not elsewhere classified (principal); Z79.01 Long term (current) use of anticoagulants; Z51.81 Encounter for therapeutic drug level monitoring | CPT/HCPCS: 85610; 99211 ==

== ENCOUNTER 2023-01-23 10:10 | Outpatient (AMB) | payer MEDICARE, OTHER, SELFPAY ==
--- NOTE | 2023-01-23 10:21 | MHC.OFFVISCO ---
Intake Intake Visit Reasons: Anticoagulation Allergies No Known Allergies Allergy (Verified 01/23/23 10:17) Medication List - Last Reconciled 01/23/23 by Carlene Acosta RN albuterol sulfate 90 mcg/actuation 2 puffs PO Q6H PRN 30 days atorvastatin 80 mg PO DAILY lisinopril 10 mg PO DAILY 90 days metoprolol succinate ER 50 mg PO DAILY tiotropium-olodaterol 2.5-2.5 mcg/actuation (Stiolto Respimat) 2 puffs inhalation Q24H 90 days warfarin 4 mg See Protocol PO DAILY Nursing Note INR: 2.2- in therapeutic range Medications and supplements reviewed- no changes No changes in health, diet, medications, or supplements, Denies any signs and symptoms of bleeding or bruising or clotting. Bleeding, bruising, clotting discussed Nutritional guidance given Dose: 4mg x 5, 2mg x 2 F/U INR: 2 weeks Patient verbalizes understanding of instructions given pt to acs in w/c accompanied by son Anti-Coag Initial Assessment Social Hx Patient Tobacco Use Status: Current everyday Tobacco user Smoking packs per day: 1 alcohol intake: current Alcohol intake frequency: 3 or more drinks per day Coding Level of Care Code Est Patient Level 1 Diagnoses Current use of anticoagulant therapy Z79.01 Results AMB INR Fingerstick AMB INR Fingerstick 2.2 Last Edit by Carlene Acosta RN on 01/23/23 10:26 Assessment & Plan Assessment & Plan (1) Current use of anticoagulant therapy: Code(s): Z79.01 - nursing home (current) use of anticoagulants Category: Medical
[2023-01-24 10:32] LABS: ~PT, ~INR - Anti Coag Clinic 2.2 (0.9-1.1)
== END 2023-01-23 10:32 | disposition home or self-care (01) ==
LOC: HO.ACS 10:10
PROVIDERS: PCP Nurse Practitioner Family; Visit Provider Internal Medicine
DX: Z79.01 Long term (current) use of anticoagulants (principal)

== ENCOUNTER → 2023-01-23 10:10 | Outpatient (BNVA) | payer MEDICARE, OTHER, SELFPAY | PROVIDERS: PCP Nurse Practitioner Family; Visit Provider Internal Medicine | DX: I51.3 Intracardiac thrombosis, not elsewhere classified (principal); Z79.01 Long term (current) use of anticoagulants; Z51.81 Encounter for therapeutic drug level monitoring | CPT/HCPCS: 85610; 99211 ==

== ENCOUNTER 2023-02-06 09:35 | Outpatient (AMB) | payer MEDICARE, OTHER, SELFPAY ==
--- NOTE | 2023-02-06 09:37 | A.OFFVIS_ITS ---
Intake Vital Signs 02/06/23 09:38 Height 5 ft 4 in BMI Reason not done Patient refused/unable BP 112/58 L Blood Pressure Location Lt brachial Position Sitting Pulse 55 Intake Visit Reasons: 6 mth ck w/ medtronic Intake Note: 6 month follow up w/ EKG Department Of Mathematics Chair Required: No Accompanied by: Self / Same As Patient Allergies No Known Allergies Allergy (Verified 02/06/23 10:21) Medication List - Last Reconciled 02/06/23 by Asif Cooper MD albuterol sulfate 90 mcg/actuation 2 puffs PO Q6H PRN 30 days atorvastatin 80 mg PO DAILY lisinopril 10 mg PO DAILY 90 days metoprolol succinate ER 50 mg PO DAILY tiotropium-olodaterol 2.5-2.5 mcg/actuation (Stiolto Respimat) 2 puffs inhalation Q24H 90 days warfarin 4 mg See Protocol PO DAILY HPI HPI Comments History of Present Illness Details Michael comes for follow-up of his ischemic cardiomyopathy and congestive heart failure. He denies any worsening symptoms but continues to have exertional shortness of breath related to COPD. Denies any leg edema, orthopnea, PND. His OptiVol setting on the device shows elevated filling pressures. He denies any chest pain. Denies any palpitations, lightheadedness, syncope, ICD discharge. [facility] Medical History CAD (coronary artery disease) Carotid artery disease Compression fx, thoracic spine (~2016) COPD (chronic obstructive pulmonary disease) Fracture of medial malleolus, left, closed HTN (hypertension) Hyperlipidemia ICD (implantable cardioverter-defibrillator) in place (~2019) Ischemic cardiomyopathy LV (left ventricular) mural thrombus Nicotine dependence, cigarettes, uncomplicated Old [place] (myocardial infarction) Osteoporosis (~2017) PVD (peripheral vascular disease) Vitamin D deficiency Surgical History History of bone marrow biopsy (~2016) History of colonoscopy (~2002) History of hemorrhoidectomy (~1969) History of implantable cardioverter-defibrillator (ICD) insertion (~2019) History of kyphoplasty (~2016) History of vascular surgery (~2012) Family History Father No problems noted. Mother Diabetes Small cell lung cancer Social History Household Members: Children Housing: House Are you a primary life care planner to a significant other at home: No Do you presently have visiting nurse or other home services: No Alcohol intake: current Alcohol intake frequency: 3 or more drinks per day Alcohol type: beer Patient Tobacco Use Status: Current everyday Tobacco user Cigarette Packs Per Day: 1 Cigarettes Per Day: 20.0 Years Smoked: 52 e-Cigarette/Vaping Use: Never Used Second Hand Smoke Exposure: No service: Yes Current occupational status: retired Cognitive needs: No Hearing needs: No Vision needs: No Review of Systems Const Denies weakness ENT Denies dizziness Card Denies chest pain, Denies chest pain with activity, Denies syncope, Denies rapid heart rate, Denies pedal edema, Denies edema, Denies leg edema, Denies lightheadedness, Denies palpitations, Denies dyspnea, Denies dyspnea on exertion and Denies orthopnea Resp Denies cough, Denies dyspnea and Denies dyspnea on exertion GI Denies hematochezia and Denies change in stool character Musc Denies abnormal gait, Denies muscle cramps, Denies muscle weakness, Denies numbness, Denies radiating pain into limb and Denies tingling Neuro Denies abnormal gait, Denies dizziness, Denies syncope, Denies numbness, Denies tingling and Denies weakness Endo Denies palpitations Physical Exam Vital Signs: Last Vital Signs Pulse 55 02/06/23 09:38 BP 112/58 L 02/06/23 09:38 Const General: cooperative, comfortable, alert and awake Nutritional Appearance: underweight Orientation/consciousness: patient oriented x3 Limitations: wheelchair Neck Neck: Yes trachea midline, Yes supple and Yes no JVD Chest Chest palpation & inspection: normal inspection of the chest Resp Effort & Inspection: normal respiratory effort Auscultation: clear to auscultation bilaterally and diminished lung sounds Cardio Jugular venous distension: no JVD Palpation: normal PMI Rate: regular rate Rhythm: regular rhythm Heart sounds: S1 normal heart sound present and S2 normal heart sound present Skin General skin exam: no rashes or lesions noted and ecchymosis Neuro General: patient oriented x3 and no focal motor deficits Extrem General: Yes no clubbing, cyanosis or edema Psych Appearance: grossly normal Office Procedures Cardiac Device Check Cardiac Device Check Details: Single-chamber Medtronic ICD in place. Programmed in VVI at 40 beats per minute. No arrhythmias detected. Ventricular pacing thresholds are stable and reprogrammed to enhance battery life. Pacing and shock lead impedance is stable. Ventricular sensing is excellent. Battery life is excellent. [id number] Cardiac Device Check, single lead implantable defibrillator Procedure code (CPT) selection complete EKG Details: EKG shows sinus bradycardia with anterior Q-waves consistent with prior anterior wall infarct with nonspecific lateral T-wave changes [id number], Complete Assessment & Plan Assessment & Plan (1) Ischemic cardiomyopathy: Comment: EF 30-35% Code(s): I25.5 - Ischemic cardiomyopathy Plan: Ischemic cardiomyopathy with persistent symptoms exertional shortness of breath which appear to me be related to deconditioning as well as underlying pulmonary parenchymal disease. Clinically there is no signs or symptoms of heart failure. Continue current neurohormonal modulation with lisinopril and metoprolol therapy. His OptiVol setting on the device do suggest elevated filling pressures. Will continue monitor remotely. I do not think he requires diuretic regimen at this point in time unless he develops other symptoms of heart failure including PND/orthopnea or leg edema. (2) ICD (implantable cardioverter-defibrillator) in place: Onset Date: ~2019 Comment: (Medtronic Single chamber ICD - placed 05/2020) Code(s): Z95.810 - Presence of automatic (implantable) cardiac defibrillator Plan: ICD in place, for primary prevention. Doing well. Will monitor remotely on a monthly basis for heart failure and every 3 months for device check. Follow up in the clinic in 6 months time. (3) CAD (coronary artery disease): Code(s): I25.10 - Atherosclerotic heart disease of [place] coronary artery without angina pectoris Plan: CAD with prior anterior/LAD territory myocardial infarction with ischemic cardiomyopathy. Clinically no symptoms of angina. Continue warfarin therapy for LV thrombus and high likelihood of recurrent LV thrombus given apical dyskinetic segment. Being followed by [facility]. Maintain target INR between 2 and 3. Continue high-intensity statin therapy with target goal LDL less than 70 mg/dL. Smoking cessation is advised. Will follow up in the clinic in 6 months time, sooner p.r.n.. Thank you for allowing me to partake in his care Coding Level of Care Code Est Pt Level 4 (16534) Diagnoses Ischemic cardiomyopathy I25.5 ICD (implantable cardioverter-defibrillator) in place Z95.810 CAD (coronary artery disease) I25.10 CPT Codes Cardiac Device Check - Cardiac Device 4: [id number] Cardiac Device Check, single lead implantable defibrillator ([id number]) EKG - CPT: 79550-[id number], Complete ([id number])
[2023-02-06 09:38] VITALS: BP 112/58; PULSE 55
== END 2023-02-06 10:07 | disposition home or self-care (01) ==
PROVIDERS: PCP Nurse Practitioner Family; Referring Provider Nurse Practitioner Family; Visit Provider Internal Medicine Cardiovascular Disease
DX: I25.5 Ischemic cardiomyopathy (principal); Z95.810 Presence of automatic (implantable) cardiac defibrillator; I25.10 Atherosclerotic heart disease of native coronary artery without angina pectoris
CPT/HCPCS: 93282; 99214

== ENCOUNTER → 2023-02-06 09:35 | Outpatient (BNVA) | payer MEDICARE, OTHER, SELFPAY | PROVIDERS: PCP Nurse Practitioner Family; Referring Provider Nurse Practitioner Family; Visit Provider Internal Medicine Cardiovascular Disease | DX: I25.5 Ischemic cardiomyopathy (principal); I25.10 Atherosclerotic heart disease of native coronary artery without angina pectoris; Z95.810 Presence of automatic (implantable) cardiac defibrillator; Z79.899 Other long term (current) drug therapy; I51.3 Intracardiac thrombosis, not elsewhere classified; Z51.81 Encounter for therapeutic drug level monitoring; Z79.01 Long term (current) use of anticoagulants | CPT/HCPCS: 85610; 93005; 99211; 99212 ==

== ENCOUNTER 2023-02-06 10:04 | Outpatient (AMB) | payer MEDICARE, OTHER, SELFPAY ==
--- NOTE | 2023-02-06 10:26 | MHC.OFFVISCO ---
Intake Intake Visit Reasons: Anticoagulation Allergies No Known Allergies Allergy (Verified 02/06/23 10:21) Medication List - Last Reconciled 02/06/23 by Carlene Acosta RN albuterol sulfate 90 mcg/actuation 2 puffs PO Q6H PRN 30 days atorvastatin 80 mg PO DAILY lisinopril 10 mg PO DAILY 90 days metoprolol succinate ER 50 mg PO DAILY tiotropium-olodaterol 2.5-2.5 mcg/actuation (Stiolto Respimat) 2 puffs inhalation Q24H 90 days warfarin 4 mg See Protocol PO DAILY Nursing Note INR 3.2-? out of therapeutic range Medications and supplements reviewed Patient status: to acs in w/c. had cardiology appt prior to acs appt Medications or supplements: pt states no changes Diet: same Denies any signs and symptoms of bleeding or clotting or unusual bruising Bleeding, bruising, clotting discussed Nutritional guidance given: eat greens for 2 days to lower inr, no reds for 2 days Dose: 2mg x 2, 4mg x 5 F/U INR Date : 2 weeks? Patient verbalizing understanding of instructions given. 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
[2023-02-06 10:27] LABS: Prothrombin Time Whole Bld POC 38.5 sec (11.1-13.5); ~PT, ~INR - Anti Coag Clinic 3.2 (0.9-1.1)
== END 2023-02-06 10:35 | disposition home or self-care (01) ==
LOC: HO.ACS 10:04
PROVIDERS: PCP Nurse Practitioner Family; Visit Provider Internal Medicine
DX: Z79.01 Long term (current) use of anticoagulants (principal)

== ENCOUNTER 2023-02-27 09:15 | Outpatient (AMB) | payer MEDICARE, OTHER, SELFPAY ==
[2023-02-27 09:28] LABS: Prothrombin Time Whole Bld POC 27.8 sec (11.1-13.5); ~PT, ~INR - Anti Coag Clinic 2.3 (0.9-1.1)
--- NOTE | 2023-02-27 09:30 | MHC.OFFVISCO ---
Intake Intake Visit Reasons: Anticoagulation Allergies No Known Allergies Allergy (Verified 02/27/23 09:22) Medication List - Last Reconciled 02/27/23 by Stephania Arnold RN albuterol sulfate 90 mcg/actuation 2 puffs PO Q6H PRN 30 days atorvastatin 80 mg PO DAILY lisinopril 10 mg PO DAILY 90 days metoprolol succinate ER 50 mg PO DAILY tiotropium-olodaterol 2.5-2.5 mcg/actuation (Stiolto Respimat) 2 puffs inhalation Q24H 90 days warfarin 4 mg See Protocol PO DAILY Nursing Note To ACS in WC for distance (uses cane to amb short distances) accomp by son feeling ok Medications and supplements reviewed No changes in health, diet, medications, or supplements Denies any unusual signs and symptoms of bruising, bleeding Denies any new Chest pain, SOB, or clotting INR: 2.3 in therapeutic range Nutritional guidance given: balance greens and reds in diet be consistent Dose: continue usual dosing; 2mg x 2 days and 4mg x 5 days F/U INR: 3 weeks Patient verbalizes understanding of instructions given with accurate read back/ teach back of dosing Anti-Coag Initial Assessment Social Hx Patient Tobacco Use Status: Current everyday Tobacco user Smoking packs per day: 1 alcohol intake: current Alcohol intake frequency: 3 or more drinks per day Coding Level of Care Code Est Patient Level 1 Diagnoses Current use of anticoagulant therapy Z79.01 Time Spent (min) 15 Assessment & Plan Assessment & Plan (1) Current use of anticoagulant therapy: Code(s): 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
== END 2023-02-27 09:33 | disposition home or self-care (01) ==
LOC: HO.ACS 09:15
PROVIDERS: PCP Nurse Practitioner Family; Visit Provider Internal Medicine
DX: Z79.01 Long term (current) use of anticoagulants (principal)

== ENCOUNTER → 2023-02-27 09:15 | Outpatient (BNVA) | payer MEDICARE, OTHER, SELFPAY | PROVIDERS: PCP Nurse Practitioner Family; Visit Provider Internal Medicine | DX: I51.3 Intracardiac thrombosis, not elsewhere classified (principal); Z79.01 Long term (current) use of anticoagulants; Z51.81 Encounter for therapeutic drug level monitoring | CPT/HCPCS: 85610; 99211 ==

== ENCOUNTER 2023-03-06 10:21 | Outpatient (AMB) | payer MEDICARE, OTHER, SELFPAY ==
--- NOTE | 2023-03-06 10:33 | AM.OFFVISMDC ---
Intake Vital Signs 03/06/23 10:38 Height 5 ft 4 in BMI Reason not done Patient refused/unable BP 110/58 L Blood Pressure Location Lt brachial Position Sitting Pulse 57 Pulse Source Pulse Oximeter Pulse Oximetry (%) 100 Oxygen Delivery Method Room Air Intake Visit Reasons: SWV G0439 Allergies No Known Allergies Allergy (Verified 03/06/23 11:17) HPI SWV G0439 HPI Details Pt is here for an SWV. Denies fever, chills, and dizziness. [place] of care in scan pile. PPP will be scanned in chart and copy will be given to pt. [facility] Medical History CAD (coronary artery disease) Carotid artery disease Compression fx, thoracic spine (~2016) COPD (chronic obstructive pulmonary disease) Fracture of medial malleolus, left, closed HTN (hypertension) Hyperlipidemia ICD (implantable cardioverter-defibrillator) in place (~2019) Ischemic cardiomyopathy LV (left ventricular) mural thrombus Nicotine dependence, cigarettes, uncomplicated [place] (myocardial infarction) Osteoporosis (~2017) PVD (peripheral vascular disease) Vitamin D deficiency Surgical History History of bone marrow biopsy (~2016) History of vascular surgery (~2012) History of hemorrhoidectomy (~1969) History of colonoscopy (~2002) History of kyphoplasty (~2016) History of implantable cardioverter-defibrillator (ICD) insertion (~2019) Family History Father No problems noted. Mother Diabetes Small cell lung cancer Social History Household Members: Children Housing: House Are you a primary home child care provider to a significant other at home: No Do you presently have visiting nurse or other home services: No Alcohol intake: current Alcohol intake frequency: 3 or more drinks per day Alcohol type: beer Patient Tobacco Use Status: Current everyday Tobacco user Cigarette Packs Per Day: 1 Cigarettes Per Day: 20.0 Years Smoked: 52 e-Cigarette/Vaping Use: Never Used Second Hand Smoke Exposure: No service: Yes Current occupational status: retired Cognitive needs: No Hearing needs: No Vision needs: No Questionnaire Medicare Wellness Checkup [age] What gender do you identify with?: male During the past 4 weeks, how much have you been bothered by emotional problems such as feeling anxious, depressed, irritable, sad or downhearted, and blue?: not at all During the past 4 weeks, has your physical & emotional health limited your social activities with family, friends, neighbors, or groups?: not at all During the past 4 weeks, how much bodily pain have you generally had?: no pain During the past 4 weeks, was someone available to help you if you needed & wanted help?: yes, as much as I wanted During the past 4 weeks, what was the hardest physical activity you could do for at least 2 minutes?: very light Can you get to places out of walking distance without help? (For eg., can you travel alone on buses, taxis or drive your car?): Yes Can you go shopping for groceries or clothes without someone's help?: No Can you prepare your own meals?: Yes Can you do your housework without help?: No Because of any health problems, do you need the help of another person with your personal care needs such as eating, bathing, dressing or getting around the house?: No Can you handle your own money without help?: Yes During the past 4 weeks, how would you rate your health in general?: fair During the past 4 weeks how have things been going for you?: pretty well Are you having difficulties driving your car?: not applicable, I don't use a car Do you always fasten your seat belt when you are in a car?: yes, usually During past 4 weeks, have you been bothered by the following: never: Sexual problems?, Trouble eating well? and Problems using the telephone?, seldom: Falling or dizzy when standing up and sometimes: Teeth or denture problems? and Tiredness or fatigue? Have you fallen 2 or more times in the past year?: No Are you afraid of falling?: No Are you a smoker?: yes, but I'm not ready to quit During the past 4 weeks, how many drinks of wine, beer, or other alcoholic beverages did you have?: 10 or more per week Do you exercise for about 20 minutes 3 or more times a week?: no, I usually do not exercise this much Have you been given information to help with the following?: no: Hazards in your house that might hurt you? and no: Keeping track of your medications? How often do you have trouble taking medicines the way you have been told to take them?: I always take medicine as prescribed How confident are you that you can control & manage most of your health problems?: very confident What is your race?: White Mini Mental State Exam (MMSE) Orientation What is the (year) (season) (date) (day) (month)?: year (2022) Where are we (state) (county) (town or city) (hospital) (floor)?: state (pr) Registration Name of 3 unrelated objects clearly and slowly, then ask patient to repeat all 3 of them. (1st repeat determines score. Make sure they can repeat all three): object 1, object 2 and object 3 Attention & Calculation (CHOOSE ONE) Spell WORLD backwards (DLROW): 5 letters Recall Ask patient to repeat the 3 items from question #3.: object 1, object 2 and object 3 Language Show patient a wristwatch & ask what it is. Repeat for pencil.: watch and pencil Ask the patient to repeat the phrase 'No ifs, ands, or buts' after you.: correct Ask the patient to 'take a piece of paper with their right hand' 'fold paper in half' 'place paper on floor': take paper in right hand, fold paper in half and place paper on floor Print the sentence 'CLOSE YOUR EYES' on a piece. If patient actually closes eyes then score.: followed written direction Give patient a blank piece of paper & ask to write a sentence. Score if it contains a noun & verb.: sentence contains subject and verb Ask patient to copy figure of intersecting pentagons exactly. Score if all 10 angles & 2 intersects are included.: all 10 angles present & 2 are intersected Score Score: 22 Activity of Daily Living Bathing - sponge bath, tub bath or shower: receives help in bathing only one body part (such as back or leg) Dressing - getting clothes from closets & drawers, including inner/outer garments & fasteners.: gets clothes & gets completely dressed without help Toileting - going to the 'toilet room' for urine/bowel elimination & cleaning self/arranging clothes: goes to toilet room, cleans self, arranges clothes without help Transfer: moves in & out of bed and chair without help (may use support object) Continence: controls urination/bowel movements completely by self Feeding: feeds self without help Total Score: 0 Information obtained from: patient Using telephone: independent Traveling: needs assistance Shopping: needs assistance Preparing meals: independent Housework: needs assistance Taking medicine: independent Managing money: independent PHQ-9 Over the last 2 weeks, how often have you been bothered by any of the following problems? 1. Little interest or pleasure in doing things: more than half the days 2. Feeling down, depressed, or hopeless: not at all 3. Trouble falling or staying asleep, or sleeping too much: more than half the days 4. Feeling tired or having little energy: more than half the days 5. Poor appetite or overeating: not at all 6. Feeling bad about yourself - or that you are a failure or have let yourself or your family down: not at all 7. Trouble concentrating on things, such as reading the newspaper or watching television: not at all 8. Moving or speaking so slowly that other people could have noticed. Or the opposite - being so fidgety or restless that you have been moving around a lot more than usual: not at all 9. Thoughts that you would be better off or of hurting yourself in some way: not at all Total score: 6 Depression Screening Interpretation: Negative 99625 - PHQ-9 Billing: Yes Source: Developed by Drs. Michael Tian, Melody Ya, Doc Sampson and colleagues, with an educational christopher from [employer]. Review of Systems Const Reports as per HPI Physical Exam Vital Signs: Last Vital Signs Pulse 57 03/06/23 10:38 BP 110/58 L 03/06/23 10:38 Pulse Ox 100 03/06/23 10:38 Oxygen Delivery Method Room Air 03/06/23 10:38 Const General: cooperative Orientation/consciousness: patient oriented x3 Limitations: ambulation with cane Neuro Other: - romberg, unable to tandem walk, can walk and turn, can rise from sitting to standing, passed whisper test General: patient oriented x3 Psych Appearance: grossly normal Mental Status: mental status grossly normal Speech and movement: Normal speech and movement present Affect: normal affect Attitude: cooperative Thought process: Normal thought process present Thought content: Normal thought content present Insight: Good insight present (Psych) Judgement: Good judgement present (Psych) Immunizations pneumoc 20-manny conj-dip cr(PF) 0.5 mL IM syringe Performing Provider: WESTON Sarabia Performing Location: [facility] Administered by: Gely Avendaño CMA on 03/06/23 11:33 Dose Route Admin Location Dispensed Lot Number Expiration Date NDC Dna Sequencing Associate 0.5 mL IM Left Deltoid 0.5 mL [id number] 04/14/24 0449-7344-10 [employer] App VIS Given Date VIS Provided VIS Publication Date 03/06/23 Single Vaccine 21 Eligibility Eligibility Date Funding Source Not [facility] Eligible 03/06/23 Private Assessment & Plan Assessment & Plan (1) Encounter for annual wellness visit (AWV) in Medicare patient: Code(s): Z00.00 - Encounter for general adult medical examination without abnormal findings Plan The patient agreed to the use of a medical equipment technician for this encounter. Scribed for WESTON Delacruz by Quita Abreu medical equipment technician, on 03/06/2023 at 11:05 EST. Orders: Orders Pneumococcal 20 Immunization Today Z23 - Encounter for immunization Quality Reporting (2019) Fall Risk Screening ([facility] 139) Fall risk assessment: 1 Fall in past year Depression/Bipolar (159/160/161/177) PHQ-9: Total score: 6 Coding Level of Care Code Medicare Subsequent (G0439) Diagnoses Encounter for annual wellness visit (AWV) in Medicare patient Z00.00 CPT Codes Advance Care Planning - Time spent: 16-45 minutes ([id number]) Advance Care Planning Forms completed: Health Care Proxy (legal one signed at home, requested by myself for copy), MOLST (form given to fill out with pt's family) and Living will (done, according to pt) Time spent: 16-45 minutes Actual minutes spent: 16
[2023-03-06 10:38] VITALS: BP 110/58; PULSE 57; O2SAT 100
== END 2023-03-06 11:34 | disposition home or self-care (01) ==
PROVIDERS: Visit Provider Nurse Practitioner Family
DX: Z00.00 Encounter for general adult medical examination without abnormal findings (principal); Z23 Encounter for immunization
CPT/HCPCS: 90471; 90677; 99497; G0439

== ENCOUNTER → 2023-03-11 23:59 | Outpatient (BNV) | payer MEDICARE, OTHER, SELFPAY ==
--- NOTE | 2023-03-13 09:33 | MHC.OFFVIS ---
Intake Intake Visit Reasons: Remote HF Monitoring- Medtronic Allergies No Known Allergies Allergy (Verified 03/06/23 11:17) [facility] Medical History CAD (coronary artery disease) Carotid artery disease Compression fx, thoracic spine (~2016) COPD (chronic obstructive pulmonary disease) Fracture of medial malleolus, left, closed HTN (hypertension) Hyperlipidemia ICD (implantable cardioverter-defibrillator) in place (~2019) Ischemic cardiomyopathy LV (left ventricular) mural thrombus Nicotine dependence, cigarettes, uncomplicated [place] (myocardial infarction) Osteoporosis (~2017) PVD (peripheral vascular disease) Vitamin D deficiency Surgical History History of bone marrow biopsy (~2016) History of vascular surgery (~2012) History of hemorrhoidectomy (~1969) History of colonoscopy (~2002) History of kyphoplasty (~2016) History of implantable cardioverter-defibrillator (ICD) insertion (~2019) Family History Father No problems noted. Mother Diabetes Small cell lung cancer Social History Household Members: Children Housing: House Are you a primary medication care manager to a significant other at home: No Do you presently have visiting nurse or other home services: No Alcohol intake: current Alcohol intake frequency: 3 or more drinks per day Alcohol type: beer Patient Tobacco Use Status: Current everyday Tobacco user Cigarette Packs Per Day: 1 Cigarettes Per Day: 20.0 Years Smoked: 52 e-Cigarette/Vaping Use: Never Used Second Hand Smoke Exposure: No service: Yes Current occupational status: retired Cognitive needs: No Hearing needs: No Vision needs: No Office Procedures Cardiac Device Check Cardiac Device Check Details: Remote heart failure report generated 03/11/2023. Heart failure parameters are stable [id number] Cardiac Device Interrogation, cardio physiologic monitor Procedure code (CPT) selection complete Coding Level of Care Code Procedure Only CPT Codes Cardiac Device Check - Cardiac Device 15: [id number] Cardiac Device Interrogation, cardio physiologic monitor ([id number])
== END ==
PROVIDERS: PCP Nurse Practitioner Family; Visit Provider Internal Medicine Cardiovascular Disease
DX: I50.20 Unspecified systolic (congestive) heart failure (principal); Z95.810 Presence of automatic (implantable) cardiac defibrillator
CPT/HCPCS: 93297

== ENCOUNTER → 2023-03-11 23:59 | Outpatient (BNV) | payer MEDICARE, OTHER, SELFPAY ==
--- NOTE | 2023-03-13 09:32 | A.OFFVIS_ITS ---
Intake Intake Visit Reasons: Remote ICD Check- Medtronic Allergies No Known Allergies Allergy (Verified 03/06/23 11:17) [facility] Medical History CAD (coronary artery disease) Carotid artery disease Compression fx, thoracic spine (~2016) COPD (chronic obstructive pulmonary disease) Fracture of medial malleolus, left, closed HTN (hypertension) Hyperlipidemia ICD (implantable cardioverter-defibrillator) in place (~2019) Ischemic cardiomyopathy LV (left ventricular) mural thrombus Nicotine dependence, cigarettes, uncomplicated [place] (myocardial infarction) Osteoporosis (~2017) PVD (peripheral vascular disease) Vitamin D deficiency Surgical History History of bone marrow biopsy (~2016) History of vascular surgery (~2012) History of hemorrhoidectomy (~1969) History of colonoscopy (~2002) History of kyphoplasty (~2016) History of implantable cardioverter-defibrillator (ICD) insertion (~2019) Family History Father No problems noted. Mother Diabetes Small cell lung cancer Social History Household Members: Children Housing: House Are you a primary pediatric critical care nurse to a significant other at home: No Do you presently have visiting nurse or other home services: No Alcohol intake: current Alcohol intake frequency: 3 or more drinks per day Alcohol type: beer Patient Tobacco Use Status: Current everyday Tobacco user Cigarette Packs Per Day: 1 Cigarettes Per Day: 20.0 Years Smoked: 52 e-Cigarette/Vaping Use: Never Used Second Hand Smoke Exposure: No service: Yes Current occupational status: retired Cognitive needs: No Hearing needs: No Vision needs: No Office Procedures Cardiac Device Check Cardiac Device Check Details: Remote ICD report generated 03/11/2023. ICD function is adequate 10510-Xpidor Cardiac Interrogation, implant defibrillator w/interim Procedure code (CPT) selection complete Coding Level of Care Code Procedure Only CPT Codes Cardiac Device Check - Cardiac Device 13: [id number] Cardiac Interrogation, implant defibrillator w/interim ([id number])
== END ==
PROVIDERS: PCP Nurse Practitioner Family; Visit Provider Internal Medicine Cardiovascular Disease
DX: I25.5 Ischemic cardiomyopathy (principal); Z95.810 Presence of automatic (implantable) cardiac defibrillator
CPT/HCPCS: 93295

== ENCOUNTER 2023-03-27 09:30 | Outpatient (AMB) | payer MEDICARE, OTHER, SELFPAY ==
--- NOTE | 2023-03-27 09:42 | MHC.OFFVISCO ---
Intake Intake Visit Reasons: Anticoagulation Allergies No Known Allergies Allergy (Verified 03/27/23 09:34) Medication List - Last Reconciled 03/27/23 by Stephania Arnold RN albuterol sulfate 90 mcg/actuation 2 puffs PO Q6H PRN 30 days atorvastatin 80 mg PO DAILY lisinopril 10 mg PO DAILY 90 days metoprolol succinate ER 50 mg PO DAILY tiotropium-olodaterol 2.5-2.5 mcg/actuation (Stiolto Respimat) 2 puffs inhalation Q24H 90 days warfarin 4 mg See Protocol PO DAILY Nursing Note To [facility] via WC for distance, uses cane to amb short distances, accomp by son, feeling well Medications and supplements reviewed, sts he had pneumonia shot a couple weeks ago and is planning on covid and flu in next couple weeks No other changes in health, diet, medications, or supplements Denies any unusual signs and symptoms of bruising, bleeding Denies any new Chest pain, SOB, or clotting INR: 2.2 in therapeutic range Nutritional guidance given: balance greens and reds in diet Dose: continue usual dosing; 2mg x 2 days and 4mg x 5 days F/U INR: 3 weeks Patient verbalizes understanding of instructions given with accurate read back/ teach back of dosing Anti-Coag Initial Assessment Social Hx Patient Tobacco Use Status: Current everyday Tobacco user Smoking packs per day: 1 alcohol intake: current Alcohol intake frequency: 3 or more drinks per day Coding Level of Care Code Est Patient Level 1 Diagnoses Current use of anticoagulant therapy Z79.01 Time Spent (min) 15 Results AMB INR Fingerstick AMB INR Fingerstick 2.2 Last Edit by Stephania Arnold RN on 03/27/23 09:40 interface failure Assessment & Plan Assessment & Plan (1) Current use of anticoagulant therapy: Code(s): Z79.01 - senior care (current) use of anticoagulants Category: Medical
[2023-03-27 10:03] LABS: Prothrombin Time Whole Bld POC 26.8 sec (11.1-13.5); ~PT, ~INR - Anti Coag Clinic 2.2 (0.9-1.1)
== END 2023-03-27 09:47 | disposition home or self-care (01) ==
LOC: HO.ACS 09:30
PROVIDERS: PCP Nurse Practitioner Family; Visit Provider Internal Medicine
DX: Z79.01 Long term (current) use of anticoagulants (principal)

== ENCOUNTER → 2023-03-27 09:30 | Outpatient (BNVA) | payer MEDICARE, OTHER, SELFPAY | PROVIDERS: PCP Nurse Practitioner Family; Visit Provider Internal Medicine | DX: I51.3 Intracardiac thrombosis, not elsewhere classified (principal); Z79.01 Long term (current) use of anticoagulants; Z51.81 Encounter for therapeutic drug level monitoring | CPT/HCPCS: 85610; 99211 ==

== ENCOUNTER → 2023-04-14 23:59 | Outpatient (BNV) | payer MEDICARE, OTHER, SELFPAY ==
--- NOTE | 2023-04-14 13:38 | A.OFFVIS_ITS ---
Intake Intake Visit Reasons: Remote HF Monitoring- Medtronic Allergies No Known Allergies Allergy (Verified 03/27/23 09:34) [facility] Medical History CAD (coronary artery disease) Carotid artery disease Compression fx, thoracic spine (~2017) COPD (chronic obstructive pulmonary disease) Fracture of medial malleolus, left, closed HTN (hypertension) Hyperlipidemia ICD (implantable cardioverter-defibrillator) in place (~2019) Ischemic cardiomyopathy LV (left ventricular) mural thrombus Nicotine dependence, cigarettes, uncomplicated [place] (myocardial infarction) Osteoporosis (~2017) PVD (peripheral vascular disease) Vitamin D deficiency Surgical History History of bone marrow biopsy (~2016) History of vascular surgery (~2012) History of hemorrhoidectomy (~1969) History of colonoscopy (~2002) History of kyphoplasty (~2016) History of implantable cardioverter-defibrillator (ICD) insertion (~2019) Family History (Reviewed 03/06/23 @ 11:43 by Jesus Langford [facility]PPORT [facility]) Father No problems noted. Mother Diabetes Small cell lung cancer Social History Household Members: Children Housing: House Are you a primary rn palliative care to a significant other at home: No Do you presently have visiting nurse or other home services: No Alcohol intake: current Alcohol intake frequency: 3 or more drinks per day Alcohol type: beer Patient Tobacco Use Status: Current everyday Tobacco user Cigarette Packs Per Day: 1 Cigarettes Per Day: 20.0 Years Smoked: 52 e-Cigarette/Vaping Use: Never Used Second Hand Smoke Exposure: No service: Yes Current occupational status: retired Cognitive needs: No Hearing needs: No Vision needs: No Office Procedures Cardiac Device Check Cardiac Device Check Details: remote heart failure report generated 04/14/2023. OptiVol settings are within normal limits. [id number] Cardiac Device Interrogation, cardio physiologic monitor Procedure code (CPT) selection complete Coding Level of Care Code Procedure Only CPT Codes Cardiac Device Check - Cardiac Device 15: [id number] Cardiac Device Interrogation, cardio physiologic monitor ([id number])
== END ==
PROVIDERS: PCP Nurse Practitioner Family; Visit Provider Internal Medicine Cardiovascular Disease
DX: I25.5 Ischemic cardiomyopathy (principal)
CPT/HCPCS: 93297

== ENCOUNTER 2023-04-22 12:36 | Emergency (ER) | payer MEDICARE, OTHER, SELFPAY ==
--- NOTE | ~2023-04-22 | US_ITS ---
EXAMINATION: NONINVASIVE ASSESSMENT OF THE ARTERIES OF THE LEFT LOWER EXTREMITY Homar Harrison MD CLINICAL INFORMATION: Left leg pain TECHNIQUE: Left lower extremity duplex ultrasound was performed with velocity measurements and waveform analysis in the common femoral artery, profunda femoris artery, proximal mid and distal superficial femoral arteries, popliteal artery and tibial vessels. This study was performed only at rest. COMPARISON: Lower extremity arterial exam 11/27/2017 FINDINGS: Velocities in cm/sec and phasicity as well as the presence of plaque are reported below. LEFT LEG: Monophasic flow is present throughout the left lower extremity. The right to left femoral-femoral bypass graft is occluded Common Femoral: 33 Profunda Femoris: 13 Proximal SFA: 34 Mid SFA: 15 Distal SFA: 39 Popliteal: 22 Posterior tibial: 119 Peroneal: Occluded or nonvisualized US/US arterial duplex LE LT IMPRESSION: There is an occluded right to left femoral-femoral bypass graft with monophasic flow noted throughout the left lower extremity as described above
[2023-04-22 12:43] VITALS: BP 115/80; PULSE 63; O2SAT 95
[2023-04-22 12:44] VITALS: BP 125/68; PULSE 60; RESP 20; TEMP 36.1; O2SAT 95; BMI 20.8
[2023-04-22 16:13] LABS: Appearance Urine Clear; Color Urine Yellow; Glucose Urine UA Negative (Negative); Leukocyte Esterase Urine Negative (Negative); Nitrite Urine Negative (Negative); PH 7.5 (5.0-9.0); Urine Blood Negative (Negative); Urine Ketones Negative (Negative); Urine Protein Negative (Neg-Trace)
--- NOTE | 2023-04-22 16:48 | ED_ITS ---
HPI - General Adult General Chief complaint: General Medical Stated complaint: L LEG PAIN/NUMBNESS,H/O DVT ON WARFARIN PER EMS Time Seen by Provider: 04/22/23 16:00 Source: patient, RN notes reviewed and old records reviewed Mode of arrival: ambulatory Limitations: no limitations and other (Patient is a fairly poor historian) History of Present Illness HPI narrative: 77-year-old male past medical history significant for coronary artery disease, cardiomyopathy status post ICD implantation, hypertension, hyperlipidemia, peripheral vascular disease, osteoporosis presents for evaluation of left leg pain. Patient reports a history of an arterial occlusion which he believes is to the right lower extremity. He is not entirely sure that is the right lower extremity as this was several years ago However his previous vascular surgeon was Dr. Edwards at [facility] He reports that he has a stent to his right common and right external iliac arteries. Patient remains on Coumadin and was due to have an INR checked today but did not get it checked this he was here instead. You presents to ER today complaining of left lower pain which he describes as burning for last 2 days. He also complains of numbness to the area from the foot up to his ankle. Denies any trauma to the area No other complaints or concerns at this time. Related Data Previous Rx's Medication Instructions Recorded atorvastatin 80 mg tablet 80 mg PO DAILY #90 tabs 03/06/22 metoprolol succinate 50 mg 50 mg PO DAILY #90 tabs 07/18/22 tablet,extended release 24 hr albuterol sulfate 90 mcg/actuation 2 puff PO Q6H PRN Shortness Of 09/12/22 aerosol inhaler Breath Or Wheezing 30 days #8.5 grams tiotropium 2.5 mcg-olodaterol 2.5 2 puff inhalation Q24H 90 days #3 09/12/22 mcg/actuation mist for inhalation ea (Stiolto Respimat) lisinopril 10 mg tablet 10 mg PO DAILY 90 days #90 caps 09/26/22 warfarin 4 mg tablet 4 mg PO DAILY #90 tabs 10/07/22 Allergies Allergy/AdvReac Type Severity Reaction Status Date / Time No Known Allergies Allergy Verified 03/27/23 09:34 Review of Systems 2 Constitutional: Constitutional: Denies fever(s) Cardiovascular: Cardiovascular: Reports cool extremities, Denies chest pain, Reports claudication, Denies leg edema and Denies dyspnea Respiratory: Respiratory: Denies dyspnea Integumentary/Breasts: Skin/Breast: Denies erythema PMFSH Past Medical History Medical History CAD (coronary artery disease) Carotid artery disease Compression fx, thoracic spine (~2016) COPD (chronic obstructive pulmonary disease) Fracture of medial malleolus, left, closed HTN (hypertension) Hyperlipidemia ICD (implantable cardioverter-defibrillator) in place (~2019) Ischemic cardiomyopathy LV (left ventricular) mural thrombus Nicotine dependence, cigarettes, uncomplicated [facility] (myocardial infarction) Osteoporosis (~2017) PVD (peripheral vascular disease) Vitamin D deficiency Surgical History History of bone marrow biopsy (~2016) History of vascular surgery (~2012) History of hemorrhoidectomy (~1969) History of colonoscopy (~2002) History of kyphoplasty (~2016) History of implantable cardioverter-defibrillator (ICD) insertion (~2019) Family History Family History Father No problems noted. Mother Diabetes Small cell lung cancer Social History Social History Household Members: Children Housing: House Are you a primary career representative to a significant other at home: No Do you presently have visiting nurse or other home services: No Alcohol intake: current Alcohol intake frequency: 3 or more drinks per day Alcohol type: beer Patient Tobacco Use Status: Current everyday Tobacco user Cigarette Packs Per Day: 1 Cigarettes Per Day: 20.0 Years Smoked: 52 Smoked in Last 30 Days: Yes e-Cigarette/Vaping Use: Never Used Second Hand Smoke Exposure: No Use of substances other than those prescribed or required for medical reasons: No Advance Directives: Yes Advance Directives on File: Yes Advance Directives Date on File: 10/10/22 service: Yes Current occupational status: retired Cognitive needs: No Hearing needs: No Vision needs: No Physical Exam ED Vital Signs: Vital Signs - 24 hr 04/22/23 12:44 04/22/23 18:33 04/22/23 18:35 Temperature 97 F Pulse Rate 60 Respiratory Rate 20 Blood Pressure 125/68 Pulse Oximetry 95 85 L 95 Oxygen Delivery Method Room Air Nasal Cannula Oxygen Flow Rate 1 04/22/23 19:15 Temperature 97.8 F Pulse Rate 62 Respiratory Rate 18 Blood Pressure 131/68 Pulse Oximetry 96 Oxygen Delivery Method Room Air Oxygen Flow Rate BMI result Body Mass Index 19.4 Const General: healthy appearing, comfortable, no acute distress, alert and awake Nutritional Appearance: well nourished Orientation/consciousness: patient oriented x3 HENMT Head: Yes normocephalic and Yes atraumatic Eyes Eyelids: Yes eyelids normal Conjunctivae: conjunctivae normal Sclerae: sclerae normal Corneas: corneas normal Pupils: Equal, round and reactive pupils present EOM: EOMs intact bilaterally Neck Neck: Yes full ROM Resp Effort & Inspection: normal respiratory effort, able to speak in complete sentences and not labored Cardio Other: I am unable to palpate a left posterior tibialis or left dorsalis pedis pulse. I am also unable to locate these pulses with Doppler ultrasound. Skin Other: Left lower extremity is cool to the touch. Capillary refill remains intact less than 3 seconds. General skin exam: elasticity normal Neuro General: patient oriented x3 Cranial nerves: Yes Equal, round and reactive pupils present and Yes Bilaterally intact EOM present Cognition (Neuro): normal cognition Extrem Other: Moving all extremities well without any obvious deformities Course Reevaluation(s) Reevaluation #1: Discussed with motorcycle service technician reports the patient has flow to the left lower extremity, however severely diminished. His fem-fem bypass graft is completely occluded and appears acute according to motorcycle service technician. Will discuss with vascular surgery, Dr. Morillo Time: 17:50 Reevaluation #2: Will discuss with [facility] and attempt transfer as per vascular surgery recommendations. Time: 19:05 Reevaluation #3: Discussed with the [facility] transfer line and vascular surgeon, Dr. Bradley. He is willing to care for the patient as consult but is hoping that the medical team at [facility] will accept transfer of care. The transfer line will work on getting an accepting physician before agreeing to accept the transfer. I did ask ultrasound to make a disc of the patient's ultrasound to bring with him to outside facility in anticipation of transfer Time: 19:25 Additional Reevaluation(s): Discussed with [facility] transfer line again. This time I discussed with the hospitalist at [facility], Dr. Patton who will accept transfer of care. Medications Administered Discontinued Medications Generic Name Dose Route Start Last Admin Trade Name Santana PRN Reason Stop Dose Admin Sodium Chloride 1,000 mls @ 999 mls/hr 04/22/23 17:15 04/22/23 18:59 Ns IV 04/22/23 18:15 Infused .Q1H1M CHERELLE Infusion Medical Decision Making Medical Decision Making [facility] Narrative: 77-year-old male presents for evaluation of left leg pain, numbness. He has a history of vasculopathy. I am unable to the either palpate or locate pulses but Doppler to left lower extremity. The limb is cool, however does have capillary refill. If there is arterial occlusion there is likely collateral flow. Plan for arterial ultrasound of the left lower extremity to assess for artery occlusion. I also ordered labs including INR. Differential Diagnosis Differential Diagnoses: The differential diagnosis associated with the presentation includes Arterial occlusion DVT Dropped failure Claudication Myopathy Admission/Observation Consideration of admission/observation: Escalation of care including admission/observation considered Consult Healthcare Provider Management of the patient was discussed with: Video And Sound Recorder (Dr. Snyder, vascular surgery recommends transfer to [facility] where the patient had his previous work done) Lab Data [facility] Lab Attestation statement: I reviewed the patient's lab results. No leukocytosis, mild anemia, platelets just below normal at 141 K. Patient's sodium is also below normal at 124 but the patient has chronic hyponatremia with a baseline around 128. We will treat with IV fluids. The patient has no neurologic signs or symptoms related to hyponatremia 04/22/23 16:42 04/22/23 16:42 Labs: Lab Results 04/22/23 04/22/23 Range/Units 16:02 16:42 WBC 7.1 (4.8-10.8) X10*3/uL RBC 4.00 L (4.60-5.80) X10*6/uL Hgb 11.9 L (14.0-18.0) g/dl Hct 34.9 L (42.0-52.0) % MCV 87.3 (80.0-98.0) fL MCH 29.8 (27.0-33.0) pg MCHC 34.1 (31.0-36.0) g/dl RDW 14.5 (11.0-16.0) % Plt Count 141 L (160-400) X10*3/uL MPV 9.1 L (9.4-12.4) fL Immature Gran % (Auto) 0.4 (0.0-0.4) % Neut % (Auto) 66.7 (45-73) % Lymph % (Auto) 20.6 (20-40) % [place] % (Auto) 10.8 (2-11) % Eos % (Auto) 1.1 (0-4) % Baso % (Auto) 0.4 (0-2) % Lymph # (Auto) 1.5 (1.2-4.9) X10*3/uL [place] # (Auto) 0.8 (0.1-1.2) X10*3/uL Eos # (Auto) 0.1 (0.0-0.4) X10*3/uL Baso # (Auto) 0.0 (0.0-0.2) X10*3/uL Abs Immat Gran (auto) 0.03 (0.00-0.03) X10*3/uL Absolute Neuts (auto) 4.7 (2.0-8.3) x10*3/uL Absolute Nucleated RBC 0.000 (0.0-0.012) X10*3/uL Nucleated RBC % (auto) 0.0 (0.0-0.2) /100WBC PT 17.8 H (11.1-13.3) SEC INR 1.5 H (0.9-1.1) APTT 36.2 D (26.0-36.4) SEC Sodium 124 L (135-145) mmol/L Potassium 4.7 (3.3-5.1) mmol/L Chloride 91 L (96-108) mmol/L Carbon Dioxide 26 (22-29) mmol/L Anion Gap 12 (12-20) BUN 11 (9-16) mg/dL Creatinine 0.63 (0.5-1.4) mg/dL Estim Creat Clear Calc 79.9 Estimated GFR > 60 Random Glucose 83 (60-115) mg/dL Calcium 8.7 (8.4-10.2) mg/dL Total Bilirubin 1.3 H (0.0-1.0) mg/dL AST 41 H (5-37) U/L ALT 15 (0-40) U/L Alkaline Phosphatase 147 H (39-117) U/L Total Protein 6.4 L (6.5-8.0) g/dL Albumin 3.5 (3.5-5.0) g/dL Lipase 20 (8-78) U/L Urine Color Yellow Urine Appearance Clear Urine pH 7.5 (5.0-9.0) Ur Specific [place] 1.010 (1.005-1.025) Urine Protein Negative (Neg-Trace) mg/dL Urine Glucose (UA) Negative (Negative) mg/dL Urine Ketones Negative (Negative) mg/dL Urine Blood Negative (Negative) Urine Nitrite Negative (Negative) Ur Leukocyte Esterase Negative (Negative) Discharge Plan Discharge Clinical Impression: Occlusion of bypass graft, Ischemia of left lower extremity Patient Disposition: [facility] Transfer Details: [facility] Prescriptions: No Action atorvastatin 80 mg tablet 80 mg PO DAILY Qty: 90 3RF metoprolol succinate 50 mg tablet extended release 24 hr 50 mg PO DAILY Qty: 90 3RF lisinopril 10 mg tablet 10 mg PO DAILY 90 Days Qty: 90 1RF warfarin 4 mg tablet 4 mg PO DAILY Qty: 90 2RF Hold Instructions: Resume on 06/12/20. Follow-up with thoracic surgery on Friday 09:00, Dr Rick's office and further use of Coumadin as per thoracic surgery. Protocol: Dose Management Condition: Friday (Week One) Dose/Route: 4 mg Instruction: 1 x 4 mg tablet Condition: Friday Dose/Route: 4 mg Instruction: 1 x 4 mg tablet Condition: Friday Dose/Route: 4 mg Instruction: 1 x 4 mg tablet Condition: Friday Dose/Route: 2 mg Instruction: 0.5 x 4 mg tablets Condition: Dose/Route: 4 mg Instruction: 1 x 4 mg tablet Condition: Friday Dose/Route: 4 mg Instruction: 1 x 4 mg tablet Condition: Friday Dose/Route: 2 mg Instruction: 0.5 x 4 mg tablets Condition: Friday (Week Two) Dose/Route: 4 mg Instruction: 1 x 4 mg tablet Condition: Friday Dose/Route: 4 mg Instruction: 1 x 4 mg tablet Condition: Friday Dose/Route: 4 mg Instruction: 1 x 4 mg tablet Condition: Friday Dose/Route: 2 mg Instruction: 0.5 x 4 mg tablets Condition: Dose/Route: 4 mg Instruction: 1 x 4 mg tablet Condition: Friday Dose/Route: 4 mg Instruction: 1 x 4 mg tablet Condition: Friday Dose/Route: 2 mg Instruction: 0.5 x 4 mg tablets Protocol Text: Adjustment Start Date: 03/27/23 INR Value: 2.2 INR Date: 03/27/23 Recheck Date: 04/17/23 Additional Instructions: INR is in range continue same dosing balance greens and reds in diet albuterol sulfate 90 mcg/actuation HFA aerosol inhaler 2 puff PO Q6H PRN (Reason: Shortness Of Breath Or Wheezing) 30 Days Qty: 8.5 6RF Stiolto Respimat 2.5-2.5 mcg/actuation mist 2 puff inhalation Q24H 90 Days Qty: 3 6RF
[2023-04-22 16:49] LABS: MANUAL DIFF FLAG NO
--- NOTE | 2023-04-22 16:49 | PC.NURSE ---
pt a&o x4, calm, and cooperative. 18G IV to pt's left forearm placed by EMS. labs drawn and sent. UA obtained. pt sts he is a daily drinker and drinks about 5-6 beers a day. denies history of withdrawal. pt sts he normally uses a walker/cane at home, unable to walk here. urinal at bedside. pt resting quietly on stretcher in no apparent distress. rr even/unlabored. family member at bedside. call greco within pt reach. plan of care ongoing.
[2023-04-22 16:59] LABS: INTERNATIONAL NORM RATIO 1.5 (0.9-1.1); Prothrombin Time 17.8 SEC (11.1-13.3)
[2023-04-22 17:02] LABS: Partial Thromboplastin Time 36.2 SEC (26.0-36.4)
[2023-04-22 17:06] LABS: Alanine Aminotransferase 15 U/L (0-40); Albumin Level 3.5 g/dL (3.5-5.0); Alkaline Phosphatase 147 U/L (39-117); Anion Gap 12 (12-20); Aspartate Amino Transferase 41 U/L (5-37); Bilirubin Total 1.3 mg/dL (0.0-1.0); Blood Urea Nitrogen 11 mg/dL (9-16); Calcium 8.7 mg/dL (8.4-10.2); Carbon Dioxide 26 mmol/L (22-29); Chloride 91 mmol/L (96-108); Creatinine Clr Calc Pharmacy 79.9; Estimated Glomerular Filt Rate > 60; Glucose Random 83 mg/dL (60-115); Lipase 20 U/L (8-78); Potassium 4.7 mmol/L (3.3-5.1); Sodium 124 mmol/L (135-145); Total Protein 6.4 g/dL (6.5-8.0)
[2023-04-22 17:10] LABS: Basophils Percent Auto 0.4 % (0-2); Eosinophils Absolute Auto 0.1 X10*3/uL (0.0-0.4); Eosinophils Percent Auto 1.1 % (0-4); Hematocrit 34.9 % (42.0-52.0); Hemoglobin 11.9 g/dl (14.0-18.0); Imm Gran Abs Auto 0.03 X10*3/uL (0.00-0.03); Imm Gran Pct Auto 0.4 % (0.0-0.4); Lymphocytes Absolute Auto 1.5 X10*3/uL (1.2-4.9); Lymphocytes Percent Auto 20.6 % (20-40); Mean Corpuscular HGB Conc 34.1 g/dl (31.0-36.0); Mean Corpuscular Hemoglobin 29.8 pg (27.0-33.0); Mean Corpuscular Volume 87.3 fL (80.0-98.0); Mean Platelet Volume 9.1 fL (9.4-12.4); Monocytes Absolute Auto 0.8 X10*3/uL (0.1-1.2); Monocytes Percent Auto 10.8 % (2-11); Neutrophils Absolute Auto 4.7 x10*3/uL (2.0-8.3); Neutrophils Percent Auto 66.7 % (45-73); Platelet Count 141 X10*3/uL (160-400); Red Cell Distribution Width 14.5 % (11.0-16.0); White Blood Count 7.1 X10*3/uL (4.8-10.8)
[2023-04-22] MEDS: 0.9 % Sodium Chloride 1,000 ML 999 ML IV ×2 (17:47→19:39)
[2023-04-22 18:33] VITALS: O2SAT 85
[2023-04-22 18:35] VITALS: O2SAT 95
--- NOTE | 2023-04-22 18:36 | PC.NURSE ---
pt sob after moving into stretcher with scale. checked O2 sat and pt noted to be sating in mid 80s. pt sts he has COPD and doesn't wear O2 at home. pt placed on 1L O2 via NC, sats came up to 95%. pt stable, speaking in full complete sentences. changed over to hospital attire. IV patent. pt son at bedside. rr even/unlabored. plan of care ongoing. awaiting heparin order.
[2023-04-22 18:39] VITALS: BMI 19.4
--- NOTE | 2023-04-22 18:39 | PC.NURSE ---
updated weight in worklist
[2023-04-22 19:15] VITALS: BP 131/68; PULSE 62; RESP 18; TEMP 36.6; O2SAT 96
[2023-04-22] MEDS: Heparin Sodium,Porcine 5,000 UNIT/ML VIAL 4200 UNIT IVPUSH (19:16)
--- NOTE | 2023-04-22 19:17 | MHC.EDTECH ---
This tech took over care of patient at 1900,hourly rounds and vitals completed,patient urinated 250ML in urinal. Call greco within reach and family at bedside
[2023-04-22] MEDS: Heparin Sodium,Porcine/1/2NS 25,000 UNIT/250 ML IV.SOLN 7.42 UNIT IVCONT (19:31)
--- NOTE | 2023-04-22 21:07 | PC.NURSE ---
at 1900 care assumed of patient by this RN, 2nd IV line established - 20G placed in right AC. NS 1L bolus administered. Heparin bolus given per MAR and infusion initiated w/ 2nd RN. pt is resting in bed at this time. no apparent distress, although admits to some anxiety about transfer to [facility]. son remains at bedside.
== END 2023-04-22 21:13 | disposition short-term general hospital (02) ==
PROVIDERS: Physician Assistant; Emergency Provider Emergency Medicine; PCP Nurse Practitioner Family
DX: I70.322 Atherosclerosis of unspecified type of bypass graft(s) of the extremities with rest pain, left leg (principal); M79.605 Pain in left leg; I11.0 Hypertensive heart disease with heart failure; I50.9 Heart failure, unspecified; E78.5 Hyperlipidemia, unspecified; F17.210 Nicotine dependence, cigarettes, uncomplicated; Z79.01 Long term (current) use of anticoagulants
CPT/HCPCS: 36415; 80053; 81003; 83690; 85025; 85610; 85730; 93926; 96361; 96374; 99285; J1643